=== PATIENT | female | born 1960 | race Caucasian/White ===

== ENCOUNTER 2018-10-05 13:11 | Outpatient (RCR) | payer MEDICAID, SELFPAY ==
--- NOTE | 2018-10-10 10:11 | HP.OTFCE_ITS ---
HP OT Functional Capacity Eval - Task Lift Floor (Occasional 1-33% of Day): 40# Floor (Frequent 34-66% of Day): 20# Floor (Constant 67-100% of Day): 8# Floor PDL: Light-Medium Knee (Occasional 1-33% of Day): 40# Knee (Frequent 34-66% of Day): 20# Knee (Constant 67-100% of Day): 8# Knee PDL: Light-Medium Waist (Occasional 1-33% of Day): 30# Waist (Frequent 34-66% of Day): 15# Waist (Constant 67-100% of Day): 8# Waist PDL: Light-Medium Shoulder (Occasional 1-33% of Day): 25# Shoulder (Frequent 34-66% of Day): 12.5 Shoulder (Constant 67-100% of Day): 5# Overhead (Occasional 1-33% of Day): 20# Overhead (Frequent 34-66% of Day): 10# Overhead (Constant 67-100% of Day): NA Overhead PDL: Light Comments: client demo with SOB following the lift activity. SpO2 was 98%. No C/O pain with lift task. - Work Activity/Posture Bending: Frequent Ability (34-66% of day) Comments: with use of external support Squatting: Occasional Ability (1-33% of day) Comments: with use of external support Kneeling: Occasional Ability (1-33% of day) Comments: low occasional with external support Reaching out: Frequent Ability (34-66% of day) Comments: while sitting Reaching up: Frequent Ability (34-66% of day) Comments: while sitting Sitting: Frequent Ability (34-66% of day) Walking: Occasional Ability (1-33% of day) Comments: due to SOB Standing: Occasional Ability (1-33% of day) Comments: low occasional ability with shifting body weight - Reference Duration Sedentary Sedentary Light Light Light Medium Medium Medium Heavy Very Heavy Heavy Occasional (0-33% of day) Frequent (34-66% of day) Constant (67-100% of day) 10 # Negligible Negligible 15 # 8 # Negligible 20 # 10# Negli. 35 # 18 # 7 # 50 # 25 # 10 # 75 # 100 # >100 # 38 # 50 # >50 # 15 # 20 # >20 # - Patient Information Height: 1.6 m Weight:: 81.647 kg Hand Dominance: right - Medical History Medical History Including Restrictions: Pt is a smoker and has been smoking for 45 years and smokes about a half a pack a day. Client states she does see a psychologist 1 x a month. Client unable to clearly identify what her medical history has been. Client states she does not have any lifting restrictions that she knows of. Client states she does not exercise on a regular basis. Pt states she takes below medications daily. meloxicam. Duloxetine. Atenolol. Omepraxole. risperidone. benztropine. Dicyclomine - Diagnoses Diagnoses: Lupus dx in 2011. Bipolar dx in 2011. Anxiety dx in 1989. Depression dx in 1979. Bowel incontienc dx in 2015. Fibromyalgia dx in 1989- pt does not remember. IBS dx in . The above dx are what client was able to recall no other dx. - Symptoms Symptoms: client reports she has constant low back pain. bowel problems. confusion. Memory. SOB with activity - Pain Pain: Client reports her current pain is 4/10. - Work History Work History: Client reports she is currently unemployed. States her last job was in 07/21/2017 working at [employer]. 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 Client states she was having difficulty performing her job duties, lifting was difficult, and being on her feet. Client states she left this job because she was unable to perform what was needed with her job requirements. - Behavioral Behavioral: Client did need instructions repeated more than one time and clarification on questions that were related to work history and past medical history. Client was cooperative and pleasant during assessment. - ADLS ADLS: Client states she lives with her boyfriend in a mobile home. Client states she has two entry steps with no rail. Client states she has no difficulty getting in or out of her home. Client states she has a tub/shower combo and is independent. with her bathing and dressing tasks. Client states she is independent with cooking tasks, client states she can perform light cleaning, dishes and running the sweeper. Client states she does need to stop and take a break during cleaning tasks but is able to complete tasks. Client states she drives independently and can complete independently as well. grocery shopping. Client states she does not use adaptive equipment or assistive ambulatory device. - Physical Examination ROM: Client demo all ROM WNL Strength: Client demo good functional strength of UB//LB at 4+/5 grossly throughout. Right Marine Service Operator Strength Average: 33.33 Right Marine Service Operator Strength Percentile: 1% Left Marine Service Operator Strength Average: 30.00 Left Marine Service Operator Strength Percentile: 1% Right Lateral Pinch Average: 12.66 Right Lateral Pinch Percentile: 50# Left Lateral Pinch Average: 10.00 Left Lateral Pinch Percentile: 25# Right Tripod Pinch Average: 9.33 Right Tripod Pinch Percentile: 25% Left Tripod Pinch Average: 8.66 Left Tripod Pinch Percentile: 25% Sensation: Denies issues Fine Motor: Denies issues. Client states she has no difficulty picking up small objects ie pills, coins etc. Balance: No loss of balance noted during assessment - Non Material Handling Activities Bending: Client demo the ability to bend forward three times, ten times and ten times rapidly. Client did use external support while bending forward ten times rapidly. Client can bend forward on a frequent basis. Squatting: Client demo the ability to squat three times, ten times and ten times rapidly. client did use external support and demo SOB with ten times rapid activity. C/O dry mouth and asked for water. client given water. Client can squat on a occasional basis with use of external suppport. Kneeling: client requied a rest break following squatting to kneeling activity (1 min). client demo the ability to kneel three times with external support. client C/O leg cramping during the task. Client was unable to kneel ten times or ten times rapidly. Client can kneel on a low occasional basis. Reaching out/up: Client demo the ability to reach up/out three times, ten times, and ten times rapidly. Client completed this task while sitting. pt can reach out/up on a fequent basis. Walking: Client demo the abiity to amb. 8 min with a good recipical gait pr oblem. Client did become SOB with amb. Client did stop to get a drink x 2 during amb. Client can amb. on a occasional basis Standing: Client demo the ability to stand for 8 min. She shifted her body weight and did lean forward on table but did well. Client indicated on functional assessment questioneer that she can stand for about two hours a day. Client can stand on a low occasional ability with given the ability to shift her body weight. Sitting: Client demo the abiity to sit for 30 min with no expressed or apparent discomfort. client can sit on a fequent basis. Client indicates on functional activities questionnaire that she can ride in a care for three house prior to needing to get out and stretch. Client also indicates on same questionnaire she usually sits for 10 hours a day. Climbing Stairs: Client ascended and descended ten steps with a reciprocal step pattern and use of bilateral hand rails with good ability. - Dynamic Occasional Lifting Capacity Floor Lift: Client demo the ability to maximally lift 40# from floor level. Knee Lift: Client demo the ability to maximally lift 40# from knee level. Waist Lift: Client demo the ability to maximally lift 40# from waist level. Shoulder Lift: Client demo the ability to lift 25# maximally from shoulder level. Overhead Lift: Client demo the ability to lift 20# maximally from overhead level. Carrying: Client demo the ability to 25# for 40 feet with good ability. Client was SOB following with SpO2 at 98%. Comments: Client reported no increase in pain and reported feeling good at end of session.
--- OUTSIDE RECORDS SUMMARY | 2018-11-30 22:34 | XMS RPT_ITS ---
:1960 Author Organization [facility] Care Team Providers Name Role Phone LEX DAVIDSON, DR. HONEY Quinteros Attending Unavailable CEBUL III, KYUNG Dickey Referring Unavailable JERSEY BROWNLEE Attending Unavailable JERSEY BROWNLEE Referring Unavailable CEBUL III, KYUNG Dickey Attending Unavailable CEBUL III, KYUNG Dickey Referring Unavailable ALEXANDERNIGEL Attending Unavailable CEBUL III, KYUNG Dickey Referring Unavailable ALEXANDERNIGEL Admitting Unavailable ALEXANDERNIGEL Attending Unavailable NIGEL MUNOZ Referring Unavailable CEBUL III, KYUNG Dickey Referring Unavailable ALEXANDERNIGEL Referring Unavailable CEBUL III, KYUNG Dickey Referring Unavailable ALEXANDERNIGEL FRIEND Attending Unavailable KUSHAL WEBSTER (CRM SPECIALIST) Attending Unavailable KUSHAL WEBSTER (CRM SPECIALIST) Referring Unavailable KUSHAL WEBSTER (CRM SPECIALIST) Referring Unavailable KUSHAL WEBSTER (CRM SPECIALIST) Referring Unavailable Kushal Hardin Attending Unavailable Cebul III, Kyung Primary Care Unavailable Kushal Hardin Referring Unavailable PROBLEMS PROBLEMS DATE TYPE CONDITION / CODE ATTENDING STATUS SOURCE 10/25/2018 Unknown M54.5 - Low back Webster SHIFT SUPERINTENDENT CAUSTIC CRESYLATE, Active Angie pain / [facility] M54.5(ICD-10) Hospital Repository 10/25/2018 Unknown M79.7 - Webster SHIFT SUPERINTENDENT CAUSTIC CRESYLATE, Active Angie Fibromyalgia / [facility] M79.7(ICD-10) Hospital Repository 09/27/2018 Active Shortness of NA Active [facility] breath / [facility] [place] R06.02(ICD-10) Repository 05/18/2018 Active Encounter for NA Active [facility] therapeutic drug [place] level monitoring / Repository Z51.81(ICD-10) 04/28/2018 Active Hyperlipidemia, NA Active [facility] unspecified / [place] E78.5(ICD-10) Repository 04/28/2018 Active Irritable bowel NA Active [facility] syndrome with [place] diarrhea / Repository K58.0(ICD-10) 01/18/2018 Active Dysphagia, ALEXANDER, Active [facility] unspecified / [facility] [place] R13.10(ICD-10) Repository 01/18/2018 Active Gastro-esophageal ALEXANDER, Active [facility] reflux disease [facility] without Repository esophagitis / K21.9(ICD-10) 01/18/2018 Active Personal history ALEXANDER, Active [facility] of colonic polyps [facility] / Z86.010(ICD-10) Repository 10/26/2017 Active Chronic kidney NA Active [facility] disease, stage 3 [place] (moderate) / Repository N18.3(ICD-10) PROCEDURES PROCEDURES No Procedure Records FoundRESULTS RESULTS OT FUNCTIONAL CAPACITY Observed: 10/10/2018 Status: F Source: [facility] 6:51 PM [facility] REPOSITORY [facility] [place] [address] Fax REHABILITATION SERVICES INITIAL EVALUATION MR#: [id number] Acct: [id number] Name: JAMSHID BYRD Rep #: [id number] : 1960 57 From: Floridalma Pollard OTR/L, CHT Referring DrMartir: Kushal FRANCOIS Status: REG RCR Insurance: [facility] Eval Date: SELF PAY INSURANCE HP OT Functional Capacity Eval - Task Lift Floor (Occasional 1-33% of Day): 40# Floor (Frequent 34-66% of Day): 20# Floor (Constant 67-100% of Day): 8# Floor PDL: Light-Medium Knee (Occasional 1-33% of Day): 40# Knee (Frequent 34-66% of Day): 20# Knee (Constant 67-100% of Day): 8# Knee PDL: Light-Medium Waist (Occasional 1-33% of Day): 30# Waist (Frequent 34-66% of Day): 15# Waist (Constant 67-100% of Day): 8# Waist PDL: Light-Medium Shoulder (Occasional 1-33% of Day): 25# Shoulder (Frequent 34-66% of Day): 12.5 Shoulder (Constant 67-100% of Day): 5# Overhead (Occasional 1-33% of Day): 20# Overhead (Frequent 34-66% of Day): 10# Overhead (Constant 67-100% of Day): NA Overhead PDL: Light Comments: client demo with SOB following the lift activity. SpO2 was 98%. No C/O pain with lift task. - Work Activity/Posture Bending: Frequent Ability (34-66% of day) Comments: with use of external support Squatting: Occasional Ability (1-33% of day) Comments: with use of external support Kneeling: Occasional Ability (1-33% of day) Comments: low occasional with external support Reaching out: Frequent Ability (34-66% of day) Comments: while sitting Reaching up: Frequent Ability (34-66% of day) Comments: while sitting Sitting: Frequent Ability (34-66% of day) Walking: Occasional Ability (1-33% of day) Comments: due to SOB Standing: Occasional Ability (1-33% of day) Comments: low occasional ability with shifting body weight - Reference Duration Sedentary Sedentary Light Light Light Medium Medium Medium Heavy V rajwinder Heavy Heavy - Patient Information Height: 1.6 m Weight:: 81.647 kg Hand Dominance: right - Medical History Medical History Including Restrictions: Pt is a smoker and has been smoking for 45 years and smokes about a half a pack a day. Client states she does see a psychologist 1 x a month. Client unable to clearly identify what her medical history has been. Client states she does not have any lifting restrictions that she knows of. Client states she does not exercise on a regular basis. Pt states she takes below medications daily. meloxicam. Duloxetine. Atenolol. Omepraxole. risperidone. benztropine. Dicyclomine - Diagnoses Diagnoses: Lupus dx in 2011. Bipolar dx in 2011. Anxiety dx in 1989. Depression dx in 1979. Bowel incontienc dx in 2015. Fibromyalgia dx in 1989- pt does not remember. IBS dx in . The above dx are what client was able to recall no other dx. - Symptoms Symptoms: client reports she has constant low back pain. bowel problems. confusion. Memory. SOB with activity - Pain Pain: Client reports her current pain is 4/10. - Work History Work History: Client reports she is currently unemployed. States her last job was in 07/21/2017 working at [employer]. 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 Client states she was having difficulty performing her job duties, lifting was difficult, and being on her feet. Client states she left this job because she was unable to perform what was needed with her job requirements. - Behavioral Behavioral: Client did need instructions repeated more than one time and clarification on questions that were related to work history and past medical history. Client was cooperative and pleasant during assessment. - ADLS ADLS: Client states she lives with her boyfriend in a mobile home. Client states she has two entry steps with no rail. Client states she has no difficulty getting in or out of her home. Client states she has a tub/shower combo and is independent. with her bathing and dressing tasks. Client states she is independent with cooking tasks, client states she can perform light cleaning, dishes and running the sweeper. Client states she does need to stop and take a break during cleaning tasks but is able to complete tasks. Client states she drives independently and can complete independently as well. grocery shopping. Client states she does not use adaptive equipment or assistive ambulatory device. - Physical Examination ROM: Client demo all ROM WNL Strength: Client demo good functional strength of UB//LB at 4+/5 grossly throughout. Right Nuclear Medicine Supervisor Strength Average: 33.33 Right Nuclear Medicine Supervisor Strength Percentile: 1% Left Nuclear Medicine Supervisor Strength Average: 30.00 Left Nuclear Medicine Supervisor Strength Percentile: 1% Right Lateral Pinch Average: 12.66 Right Lateral Pinch Percentile: 50# Left Lateral Pinch Average: 10.00 Left Lateral Pinch Percentile: 25# Right Tripod Pinch Average: 9.33 Right Tripod Pinch Percentile: 25% Left Tripod Pinch Average: 8.66 Left Tripod Pinch Percentile: 25% Sensation: Denies issues Fine Motor: Denies issues. Client states she has no difficulty picking up small objects ie pills, coins etc. Balance: No loss of balance noted during assessment - Non Material Handling Activities Bending: Client demo the ability to bend forward three times, ten times and ten times rapidly. Client did use external support while bending forward ten times rapidly. Client can bend forward on a frequent basis. Squatting: Client demo the ability to squat three times, ten times and ten times rapidly. client did use external support and demo SOB with ten times rapid activity. C/O dry mouth and asked for water. client given water. Client can squat on a occasional basis with use of external suppport. Kneeling: client requied a rest break following squatting to kneeling activity (1 min). client demo the ability to kneel three times with external support. client C/O leg cramping during the task. Client was unable to kneel ten times or ten times rapidly. Client can kneel on a low occasional basis. Reaching out/up: Client demo the ability to reach up/out three times, ten times, and ten times rapidly. Client completed this task while sitting. pt can reach out/up on a fequent basis. Walking: Client demo the abiity to amb. 8 min with a good recipical gait problem. Client did become SOB with amb. Client did stop to get a drink x 2 during amb. Client can amb. on a occasional basis Standing: Client demo the ability to stand for 8 min. She shifted her body weight and did lean forward on table but did well. Client indicated on functional assessment questioneer that she can stand for about two hours a day. Client can stand on a low occasional ability with given the ability to shift her body weight. Sitting: Client demo the abiity to sit for 30 min with no expressed or apparent discomfort. client can sit on a fequent basis. Client indicates on functional activities questionnaire that she can ride in a care for three house prior to needing to get out and stretch. Client also indicates on same questionnaire she usually sits for 10 hours a day. Climbing Stairs: Client ascended and descended ten steps with a reciprocal step pattern and use of bilateral hand rails with good ability. - Dynamic Occasional Lifting Capacity Floor Lift: Client demo the ability to maximally lift 40# from floor level. Knee Lift: Client demo the ability to maximally lift 40# from knee level. Waist Lift: Client demo the ability to maximally lift 40# from waist level. Shoulder Lift: Client demo the ability to lift 25# maximally from shoulder level. Overhead Lift: Client demo the ability to lift 20# maximally from overhead level. Carrying: Client demo the ability to 25# for 40 feet with good ability. Client was SOB following with SpO2 at 98%. Comments: Client reported no increase in pain and reported feeling good at end of session. <Electronically signed by Floridalma JACOME/CHAS LopezT> 10/10/18 [id number] CC: Kyung Bates III, MD; Kushal FRANCOIS MK Signed For Medicare only, by signing this I certify the plan of care. Physicians Signature Date Observed: 09/20/2018 Status: F Source: [facility] URINE CULTURE 4:22 PM [facility] REPOSITORY Sp. Request/Comment: - Specimen received in preservative Culture Result - >=100,000 CFU/ml Staphylococcus aureus --> ABNORMAL ALERT ORGANISM: Staphylococcus aureus METHOD: Minimum inhibitory concentration(Vitek) Antibiotic Interp KAYLA Status Trimeth sulfameth SUSCEPTIBLE <=10 F Oxacillin SUSCEPTIBLE 0.5 F Oxacillin susceptible staphylococci are susceptible to other penicillinase stable penicillins, beta lactam/beta lactamase inhibitor combinations, anti staphyloccal cephems, and carbapenems. Vancomycin SUSCEPTIBLE <=0.5 F Tetracycline SUSCEPTIBLE <=1 F Gentamicin SUSCEPTIBLE <=0.5 F Nitrofurantoin SUSCEPTIBLE <=16 F Rifampin SUSCEPTIBLE <=0.5 F Rifampin should not be used alone for antimicrobial therapy. Levofloxacin RESISTANT >=8 F Doxycycline SUSCEPTIBLE <=0.5 F Performed By: #### URCUL #### [facility] [address], [place] [address] PROGRESS Observed: 09/20/2018 Status: COMPLETED Source: [facility] 3:51 PM [facility] REPOSITORY HNO ID: [id number] Author: Kushal Sanders (Doni) Darin Service: (none) Author Type: Nurse Practitioner Type: Progress Notes Filed: 09/20/2018 5:02 PM Note Text: Chief Complaint Patient presents with: Recheck: UTI Imm/Inj: Flu Vaccine HPI Jamshid Byrd is a 57 year old female who presents here today for evaluation and treatment of possible UTI. Sx: urinary frequency, dribbling, urgency, + dysuria and pressure. Denies overt hematuria. Was seen in UC 2 weeks ago for allergic reaction after taking friend's Duricef prescription for UTI sx. Notes hands, lips and face swollen. She was placed on prednisone taper and given rx for Cipro 250 mg. States usually gets Cipro 500 mg with benefit. Took all the prescription, 7 days with mild improvement and now sx worsening. Denies any chills, fever or flank pain. Also brings in Disability forms for PCP to complete. When questioned further she states claiming disability for multiple reasons including: chronic low back pain, unable to stand for prolonged periods such as washing dishes due to pain. SOB, continues to smoke, and mental health status with mood and becoming overwhelmed and anxious. She will have her Mental Health provider complete forms regarding her mental health. Past medical history, appointments, medications, allergies reviewed. 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 - Diaphragmatic hernia without mention of obstruction or gangrene - Drug abuse and dependence (HCC) 10/24/2012 - Esophageal reflux - Esophagitis, unspecified - Gastroesophageal reflux disease with esophagitis 11/06/2015 - Genital warts - Herpes simplex labialis 06/12/2014 - Irritable bowel syndrome 09/05/2010 - Other forms of migraine - Snoring - Systemic lupus erythematosus (HCC) 10/24/2012 - TMJ syndrome 10/24/2012 - Tubular adenoma of colon 12/29/12 - Unspecified drug or medicinal substance causing adverse effect in therapeutic use(E947.9) Previous Surgical History PAST SURGICAL HISTORY Procedure Laterality Date - COLONOSCOP W/ OR W/O BRSH SPEC 12/28/2012 Colonoscopy - CONIZATION CERVIX LOOP ELEC - EGD W/O BRSH SPECIMEN W/BX 01/03/07 - EGD W/O OR W/BRUSH/WASH 12/28/2012 EGD - EXCISION OF LINGUAL TONSIL - PAST SURGICAL HISTORY OF tubal ligation - PAST SURGICAL HISTORY OF 08/22/2009 mid urethral sling Family History FAMILY HISTORY Problem Relation Age of Onset - Breast Cancer Mother - other (Other) Father not in contact with father - Cancer Paternal Grandmother throat - Cancer Paternal Aunt STOMACH - Breast Cancer Maternal Aunt - Psychiatry Brother schizophrenia - Diabetes Brother - Colon Cancer Brother thyroid and liver - other (lung cancer) Brother - Psychiatry Brother explosive personality - None Brother - other (obesity) Sister Patient Allergies ALLERGIES Allergen Reactions - Macrodantin [Nitrof* Anaphylaxis - Bactrim [Sulfametho* Other: See Comments mouth sores--Paredes Dillon reaction - Duracef [Cefadroxil] Swelling Tongue and lip swelling - Estill Rash Current Medications Current Outpatient Prescriptions on File Prior to Visit: meloxicam (MOBIC) 15 mg tablet TAKE 1 TABLET BY MOUTH ONCE DAILY. TAKE WITH FOOD. atenolol (TENORMIN) 25 mg tablet TAKE 1 TABLET BY MOUTH ONCE DAILY. omeprazole (PRILOSEC) 20 mg capsule TAKE 1 CAPSULE TWICE DAILY dicyclomine (BENTYL) 10 mg capsule Take 1 capsule by mouth three times daily. acyclovir (ZOVIRAX) 400 mg tablet Take 1 tablet by mouth twice daily. LORazepam (ATIVAN) 1 mg tablet risperiDONE (RISPERDAL) 1 mg tablet hydroxychloroquine (PLAQUENIL) 200 mg tablet TAKE 1 TABLET BY MOUTH TWICE DAILY. divalproex DR 250 mg EC tablet Take 500 mg by mouth twice daily. DULoxetine (CYMBALTA) 60 mg capsule Take 1 capsule by mouth twice daily. No current facility-administered medications on file prior to visit. Social History Social History Marital status: Spouse name: Years of education: 13 Number of children: 3 Social History Main Topics Smoking status: Current Every Day Smoker Packs/day: 0.50 Years: 34.00 Types: Cigarettes Smokeless tobacco: Never Used Comment: < 1 ppk Alcohol use: Yes 1.5 - 12.0 oz/week Cans of Beer (12oz): 1 - 2 per week Comment: occ Drug use: Yes Comment: occasional marijuana and cocaine use. As of 05/02 has not used cocaine in 1 year. Sexual activity: Yes Partners with: Male control/protection: Tubal Ligation Comment: btl Review of Symptoms REVIEW OF SYSTEMS GENERAL: No weight loss, malaise or fevers HEENT: Negative for frequent or significant headaches, No changes in hearing or vision, no nose bleeds or other nasal problems NECK: Negative for lumps, goiter, pain and significant neck swelling RESPIRATORY: Shortness of breath CARDIOVASCULAR: Negative for chest pain, leg swelling, hypertension, CHF or palpitations GI: Positive for Gerd sx with regurge into mouth after lying down. + smoking, + caffeine 2 cups/day, + eating just prior to bedtime. : See HPI EXAM: BP 102/72 (BP Site: Left Arm, BP Position: Sitting, BP Cuff Size: Regular Adult) Pulse 76 Temp 37.2 ?C (98.9 ?F) (Tympanic) Resp 20 Wt 86.6 kg (191 lb) LMP 09/08/2007 BMI 34.38 kg/m? General Appearance: Well appearing, alert, in no acute distress, well-hydrated, well nourished., Overweight and strong smell of cigarettes. Oropharynx: Lips, mucosa, and tongue normal, teeth and gums normal, oropharynx normal. Neck: Supple, no adenopathy; thyroid symmetric, normal size, no bruits. Lungs: lungs clear to auscultation. No wheezing, rhonchi, rales. Heart: RRR without murmur, gallop, or rubs. No ectopy. Abdomen: Normal abdominal exam, Abdomen soft, non-tender. Bowel sounds normal. No masses, organomegaly. Health Maintenance List DTAP,TDAP,TD(1 - Tdap) due on 1980 INFLUENZA(1) due on 07/09/2018 MAMMOGRAM due on 09/24/2018 DIABETES SCREEN due on 05/18/2021 PAP EVERY 5 YEARS due on 09/24/2022 HPV EVERY 5 YEARS due on 09/24/2022 LIPID SCREEN due on 04/28/2023 ONE PNEUMOVAX PRIOR TO AGE 65 Completed HEPATITIS C SCREENING Completed ASSESSMENT/PLAN: 1. Recurrent UTI (urinary tract infection) - ICD9: 599.0, ICD10: N39.0 (primary diagnosis) recurrent - UA positive for fermin esterase and hematuria - Send urine for culture and will await culture results. - Begin treatment with Ciprofloxacin 500 mg BID for 7 days - Patient education for prevention given - CIPROFLOXACIN 500 MG TABLET - URINE CULTURE 2. Need for vaccination - ICD9: V05.9, ICD10: Z23 - INFLUENZA VACCINE QUADRIVALENT AGE 3 YRS PLUS + IM 3. Dysuria - ICD9: 788.1, ICD10: R30.0 As above - UA DIP, URINE (POC) 4. GERD without esophagitis - ICD9: 530.81, ICD10: K21.9 - Discussed lifestyle modifications including losing weight, limiting caffeine, no meals three hours before sleep and head of bed elevation - Continue treatment with Prilosec 20 mg QD - Smoking cessation encouraged. Disability forms: explained to patient she may need to have additional testing such as Spirometry and Functional capacity exam. The patient indicates understanding of these issues and agrees with the plan. Will forward forms to Dr. Bates. Kushal Webster, MSN COLD PATCHER.MACHINE PACKAGE SEALER PROGRESS Observed: 09/20/2018 Status: COMPLETED Source: [facility] 3:31 PM [facility] REPOSIT[facility] HNO ID: [id number] Author: Sabino Boyd LPN Service: (none) Author Type: (none) Type: Progress Notes Filed: 09/20/2018 5:02 PM Note Text: 57 year old female here for INACTIVATED INFLUENZA VACCINE. [id number] Season Patient is identified by name and date of : Yes [] CONTRAINDICATIONS color enhanced section Age less than 6 months? No Allergy to eggs, chicken, chicken feathers, or chicken dander? No Allergy to thimerosal (a preservative) or formaldehyde, gelatin? No History of severe reaction to any vaccine component or a previous dose of influenza vaccination? No History of Guillain-Orange Syndrome within 6 weeks after a previous influenza vaccine? No Patient is not moderately or severely ill? No Current temperature greater or equal to 100.4F? No History of Bone Marrow Transplant prior 6 months or solid organ transplant in the past 3 months ? No History of fainting after a prior injection or medical procedure? No- ? If patient has fainted in the past, the CDC recommends sitting or lying down for 15 minutes after the vaccination. [] VERIFICATION color enhanced section Was the answer Yes for any of the above contraindications? No contraindications present. Acceptable to proceed with vaccine. Patient/guardian agrees the above answers are true to the best of their knowledge? Yes Flu vaccine information sheet given? Yes See immunization activity in [facility] for details of immunizations adminstered today. Patient age: [age] year old For The 4378-6596 Flu Season 6-35 months old: Fluzone 0.25 ml - IM (Preservative Free) 3 years of age: Fluzone 0.5 ml - IM (Preservative Free) 3 years and older: Fluzone 0.5 ml- IM-(with Preservatives) 65+ years old: 2-49 years old Fluzone High-Dose 0.5 ml - IM (Preservative Free) FLUMIST- intranasal REMEMBER: If patient is less than 9 years of age and this is the first vaccine of Influenza to be received in any flu season, they should receive a second dose in one months time. CNOV Observed: 09/20/2018 Status: COMPLETED Source: [facility] 3:20 PM [facility] REPOS[facility] Office Visit (FAMPWS) JAMSHID BYRD ([id number]) 1960 F Date Time Provider Department 09/20/18 3:20 PM KUSHAL WEBSTER (CRM SPECIALIST) FAMPWS During your visit today, we recorded the following information about you: Temperature Pulse Respiration Blood pressure 98.9 degrees 76/minute 20/minute 102/72 Weight 86.6 kg Sabino Boyd LPN 09/20/2018 5:02 PM Signed 57 year old female here for INACTIVATED INFLUENZA VACCINE. Season Patient is identified by name and date of : Yes [] CONTRAINDICATIONS color enhanced section Age less than 6 months? No Allergy to eggs, chicken, chicken feathers, or chicken dander? No Allergy to thimerosal (a preservative) or formaldehyde, gelatin? No History of severe reaction to any vaccine component or a previous dose of influenza vaccination? No History of Guillain-Orange Syndrome within 6 weeks after a previous influenza vaccine? No Patient is not moderately or severely ill? No Current temperature greater or equal to 100.4F? No History of Bone Marrow Transplant prior 6 months or solid organ transplant in the past 3 months ? No History of fainting after a prior injection or medical procedure? No- ? If patient has fainted in the past, the CDC recommends sitting or lying down for 15 minutes after the vaccination. [] VERIFICATION color enhanced section Was the answer Yes for any of the above contraindications? No contraindications present. Acceptable to proceed with vaccine. Patient/guardian agrees the above answers are true to the best of their knowledge? Yes Flu vaccine information sheet given? Yes See immunization activity in [facility] for details of immunizations adminstered today. Patient age: [age] year old For The 9972-2321 Flu Season 6-35 months old: Fluzone 0.25 ml - IM (Preservative Free) 3 years of age: Fluzone 0.5 ml - IM (Preservative Free) 3 years and older: Fluzone 0.5 ml- IM-(with Preservatives) 65+ years old: 2-49 years old Fluzone High-Dose 0.5 ml - IM (Preservative Free) FLUMIST- intranasal REMEMBER: If patient is less than 9 years of age and this is the first vaccine of Influenza to be received in any flu season, they should receive a second dose in one months time. Kushal Webster, MSN COLD PATCHER.MACHINE PACKAGE SEALER 09/20/2018 5:02 PM Signed Chief Complaint Patient presents with: Recheck: UTI Imm/Inj: Flu Vaccine HPI Jamshid Byrd is a 57 year old female who presents here today for evaluation and treatment of possible UTI. Sx: urinary frequency, dribbling, urgency, + dysuria and pressure. Denies overt hematuria. Was seen in UC 2 weeks ago for allergic reaction after taking friend's Duricef prescription for UTI sx. Notes hands, lips and face swollen. She was placed on prednisone taper and given rx for Cipro 250 mg. States usually gets Cipro 500 mg with benefit. Took all the prescription, 7 days with mild improvement and now sx worsening. Denies any chills, fever or flank pain. Also brings in Disability forms for PCP to complete. When questioned further she states claiming disability for multiple reasons including: chronic low back pain, unable to stand for prolonged periods such as washing dishes due to pain. SOB, continues to smoke, and mental health status with mood and becoming overwhelmed and anxious. She will have her Mental Health provider complete forms regarding her mental health. Past medical history, appointments, medications, allergies reviewed. 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 - Diaphragmatic hernia without mention of obstruction or gangrene - Drug abuse and dependence (HCC) 10/24/2012 - Esophageal reflux - Esophagitis, unspecified - Gastroesophageal reflux disease with esophagitis 11/06/2015 - Genital warts - Herpes simplex labialis 06/12/2014 - Irritable bowel syndrome 09/05/2010 - Other forms of migraine - Snoring - Systemic lupus erythematosus (HCC) 10/24/2012 - TMJ syndrome 10/24/2012 - Tubular adenoma of colon 12/29/12 - Unspecified drug or medicinal substance causing adverse effect in therapeutic use(E947.9) Previous Surgical History PAST SURGICAL HISTORY Procedure Laterality Date - COLONOSCOP W/ OR W/O [facility] SPEC 12/28/2012 Colonoscopy - CONIZATION CERVIX LOOP ELEC - [facility] 01/03/07 - EGD W/O OR W/BRUSH/WASH 12/28/2012 EGD - EXCISION OF LINGUAL TONSIL - PAST SURGICAL HISTORY OF tubal ligation - PAST SURGICAL HISTORY OF 08/22/2009 mid urethral sling Family History FAMILY HISTORY Problem Relation Age of Onset - Breast Cancer Mother - other (Other) Father not in contact with father - Cancer Paternal Grandmother throat - Cancer Paternal Aunt STOMACH - Breast Cancer Maternal Aunt - Psychiatry Brother schizophrenia - Diabetes Brother - Colon Cancer Brother thyroid and liver - other (lung cancer) Brother - Psychiatry Brother explosive personality - None Brother - other (obesity) Sister Patient Allergies ALLERGIES Allergen Reactions - Macrodantin [Nitrof* Anaphylaxis - Bactrim [Sulfametho* Other: See Comments mouth sores--Paredes Dillon reaction - Duracef [Cefadroxil] Swelling Tongue and lip swelling - Estill Rash Current Medications Current Outpatient Prescriptions on File Prior to Visit: meloxicam (MOBIC) 15 mg tablet TAKE 1 TABLET BY MOUTH ONCE DAILY. TAKE WITH FOOD. atenolol (TENORMIN) 25 mg tablet TAKE 1 TABLET BY MOUTH ONCE DAILY. omeprazole (PRILOSEC) 20 mg capsule TAKE 1 CAPSULE TWICE DAILY dicyclomine (BENTYL) 10 mg capsule Take 1 capsule by mouth three times daily. acyclovir (ZOVIRAX) 400 mg tablet Take 1 tablet by mouth twice daily. LORazepam (ATIVAN) 1 mg tablet risperiDONE (RISPERDAL) 1 mg tablet hydroxychloroquine (PLAQUENIL) 200 mg tablet TAKE 1 TABLET BY MOUTH TWICE DAILY. divalproex DR 250 mg EC tablet Take 500 mg by mouth twice daily. DULoxetine (CYMBALTA) 60 mg capsule Take 1 capsule by mouth twice daily. No current facility-administered medications on file prior to visit. Social History Social History Marital status: Spouse name: Years of education: 13 Number of children: 3 Social History Main Topics Smoking status: Current Every Day Smoker Packs/day: 0.50 Years: 34.00 Types: Cigarettes Smokeless tobacco: Never Used Comment: < 1 ppk Alcohol use: Yes 1.5 - 12.0 oz/week Cans of Beer (12oz): 1 - 2 per week Comment: occ Drug use: Yes Comment: occasional marijuana and cocaine use. As of 05/02 has not used cocaine in 1 year. Sexual activity: Yes Partners with: Male control/protection: Tubal Ligation Comment: btl Review of Symptoms REVIEW OF SYSTEMS GENERAL: No weight loss, malaise or fevers HEENT: Negative for frequent or significant headaches, No changes in hearing or vision, no nose bleeds or other nasal problems NECK: Negative for lumps, goiter, pain and significant neck swelling RESPIRATORY: Shortness of breath CARDIOVASCULAR: Negative for chest pain, leg swelling, hypertension, CHF or palpitations GI: Positive for Gerd sx with regurge into mouth after lying down. + smoking, + caffeine 2 cups/day, + eating just prior to bedtime. : See HPI EXAM: BP 102/72 (BP Site: Left Arm, BP Position: Sitting, BP Cuff Size: Regular Adult) Pulse 76 Temp 37.2 ?C (98.9 ?F) (Tympanic) Resp 20 Wt 86.6 kg (191 lb) LMP 09/08/2007 BMI 34.38 kg/m? General Appearance: Well appearing, alert, in no acute distress, well-hydrated, well nourished., Overweight and strong smell of cigarettes. Oropharynx: Lips, mucosa, and tongue normal, teeth and gums normal, oropharynx normal. Neck: Supple, no adenopathy; thyroid symmetric, normal size, no bruits. Lungs: lungs clear to auscultation. No wheezing, rhonchi, rales. Heart: RRR without murmur, gallop, or rubs. No ectopy. Abdomen: Normal abdominal exam, Abdomen soft, non-tender. Bowel sounds normal. No masses, organomegaly. Health Maintenance List DTAP,TDAP,TD(1 - Tdap) due on 1980 INFLUENZA(1) due on 07/09/2018 MAMMOGRAM due on 09/24/2018 DIABETES SCREEN due on 05/18/2021 PAP EVERY 5 YEARS due on 09/24/2022 HPV EVERY 5 YEARS due on 09/24/2022 LIPID SCREEN due on 04/28/2023 ONE PNEUMOVAX PRIOR TO AGE 65 Completed HEPATITIS C SCREENING Completed ASSESSMENT/PLAN: 1. Recurrent UTI (urinary tract infection) - ICD9: 599.0, ICD10: N39.0 (primary diagnosis) recurrent - UA positive for fermin esterase and hematuria - Send urine for culture and will await culture results. - Begin treatment with Ciprofloxacin 500 mg BID for 7 days - Patient education for prevention given - CIPROFLOXACIN 500 MG TABLET - URINE CULTURE 2. Need for vaccination - ICD9: V05.9, ICD10: Z23 - INFLUENZA VACCINE QUADRIVALENT AGE 3 YRS PLUS + IM 3. Dysuria - ICD9: 788.1, ICD10: R30.0 As above - UA DIP, URINE (POC) 4. GERD without esophagitis - ICD9: 530.81, ICD10: K21.9 - Discussed lifestyle modifications including losing weight, limiting caffeine, no meals three hours before sleep and head of bed elevation - Continue treatment with Prilosec 20 mg QD - Smoking cessation encouraged. Disability forms: explained to patient she may need to have additional testing such as Spirometry and Functional capacity exam. The patient indicates understanding of these issues and agrees with the plan. Will forward forms to Dr. Bates. Kushal Webster, MSN COLD PATCHER.MACHINE PACKAGE SEALER Referring Provider: SELF [[id number]] Allergies As of Date: 09/20/2018 Noted Allergy Reaction MACRODANTIN (NITROFURANTOIN MACRO*02/10/2010 10 - Anaphylaxis BACTRIM (SULFAMETHOXAZOLE) 09/25/2014 14 - Other: See Comments Comments: mouth sores--Paredes Dillon reaction DURACEF (CEFADROXIL) 08/20/2018 7 - Swelling Comments: Tongue and lip swelling LITHIUM 02/08/2012 2 - Rash Date Reviewed: 09/20/2018 Reviewed by: Sabino Boyd LPN - Fully Assessed Reason for Visit: Recheck [92] Cmt: UTI Imm/Inj [58] Cmt: Flu Vaccine Reason For Visit History Recorded Primary Visit Diagnosis:Recurrent UTI (urinary tract infection) [N39.0] Other Visit Diagnoses:Need for vaccination [Z23] Dysuria [R30.0] GERD without esophagitis [K21.9] Order(s):INFLUENZA VACCINE QUADRIVALENT AGE 3 YRS PLUS + IM [[id number]] Order #: [id number] UA DIP, URINE (POC) [[id number]] Order #: [id number]. #:[id number] ciprofloxacin HCl (CIPRO) 500 mg tabletTake 1 tablet by mouth twice daily for 7 days.Disp: 14 tabletRfl: 0 URINE CULTURE [SQURCUL] Order #: [id number] Prescriptions as of 09/20/2018 Sig: RISPERIDONE 2 MG TABLET Take 2 mg by mouth twice shanell* DULOXETINE 30 MG CAPSULE,TAYE* Take 30 mg by mouth once shanell* BENZTROPINE 1 MG TABLET Take 1 mg by mouth twice shanell* MELOXICAM 15 MG TABLET TAKE 1 TABLET BY MOUTH ONCE D* ATENOLOL 25 MG TABLET TAKE 1 TABLET BY MOUTH ONCE D* OMEPRAZOLE 20 MG CAPSULE,TAYE* TAKE 1 CAPSULE TWICE DAILY DICYCLOMINE 10 MG CAPSULE Take 1 capsule by mouth three* ACYCLOVIR 400 MG TABLET Take 1 tablet by mouth twice * LORAZEPAM 1 MG TABLET CIPROFLOXACIN 500 MG TABLET Take 1 tablet by mouth twice * Problem List As Of Date 09/20/2018 Noted Resolved MIGRAINE NOS W/O MENTN INTRACTABLE [G43.909] INVALID FOR* Bipolar I disorder (HCC) [F31.9] INVALID FOR* Open wound of knee, leg (except thigh), and ank*INVALID FOR*11/22/2012 Acute gastritis without mention of hemorrhage [*INVALID FOR*11/22/2012 DIAPHRAGMATIC HERNIA [K44.9] INVALID FOR* Lateral epicondylitis of elbow [M77.10] INVALID FOR*11/22/2012 ADJUSTMENT DISORDER WITH DEPRESSED MOOD [F43.21]INVALID FOR* Plantar fascial fibromatosis [M72.2] INVALID FOR*11/30/2016 Pain in limb [M79.609] INVALID FOR*03/21/2015 Female Stress Incontinence [N39.3] INVALID FOR*10/09/2009 Urge Incontinence [N39.41] INVALID FOR*10/09/2009 Other chronic cystitis [N30.20] INVALID FOR*06/04/2016 Irritable bowel syndrome [K58.9] INVALID FOR* Trochanteric bursitis of both hips [M70.61, M70*INVALID FOR* 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 Knee pain, bilateral [M25.561, M25.562] INVALID FOR*10/04/2017 Arthritis of knee, left [M17.12] INVALID FOR*10/04/2017 Herpes simplex labialis [B00.1] INVALID FOR*10/04/2017 Psoriasis with arthropathy (HCC) [L40.50] INVALID FOR* Benign essential tremor [G25.0] INVALID FOR* Tobacco use [Z72.0] INVALID FOR* SOB (shortness of breath) on exertion [R06.02] INVALID FOR* Chronic tension-type headache, not intractable *INVALID FOR* Nausea [R11.0] INVALID FOR*10/04/2017 Pyoderma (skin infection) [L08.0] INVALID FOR*10/04/2017 Gastroesophageal reflux disease with esophagiti*INVALID FOR* Muscle contraction headache [G44.209] INVALID FOR*10/04/2017 Upper back pain [M54.9] INVALID FOR* Vasomotor rhinitis [J30.0] INVALID FOR* Fibromyalgia [M79.7] INVALID FOR* Recurrent urinary tract infection [N39.0] INVALID FOR* Genital warts [A63.0] INVALID FOR*10/04/2017 History of hysterectomy [Z90.710] INVALID FOR*08/21/2016 Medication management [Z79.899] INVALID FOR* Cutaneous lupus erythematosus [L93.2] INVALID FOR* KRISTINA I (cervical intraepithelial neoplasia I) [N*INVALID FOR* More... Personal history of colonic polyps [Z86.010] INVALID FOR* More... Esophageal reflux [K21.9] INVALID FOR* More... Elevated serum creatinine [R79.89] INVALID FOR* Screening for colon cancer [Z12.11] INVALID FOR* More... Prescriptions ordered this encounter Disp Refills Start End CIPROFLOXACIN 500 MG TABLET 14 t* 0 09/20/2018 09/27/2018 Route: ORAL Sig: Take 1 tablet by mouth twice daily for 7 days. Medications Discontinued During This Encounter hydroxychloroquine (PLAQUENIL) 200 m* 56 t* 1 02/24/2018 09/20/2018 Cmt: Maximum Refills Reached Sig: TAKE 1 TABLET BY MOUTH TWICE DAILY. Disc: Course of therapy completed divalproex DR 250 mg EC tablet 11/22/2013 09/20/2018 Class: Historical Med Route: ORAL Sig: Take 500 mg by mouth twice daily. Disc: Discontinued by another Health Care Provider risperiDONE (RISPERDAL) 1 mg tablet 06/21/2018 09/20/2018 Class: Historical Med Sig: Disc: Discontinued by another Health Care Provider DULoxetine (CYMBALTA) 60 mg capsule 06/27/2013 09/20/2018 Class: Med Update Route: ORAL Sig: Take 1 capsule by mouth twice daily. Disc: Duplicate Entry Cosign accepted by KYUNG BATES III, MD[[id number]] on 06/30/2013 1:12 PM Disposition: Return if symptoms worsen or fail to improve. Follow-up and Disposition History Recorded Encounter Status:Closed by KUSHAL WEBSTER CNP on 09/20/18 PROGRESS Observed: 08/20/2018 Status: COMPLETED Source: LEE 3:53 PM [facility] REPOSITORY HNO ID: [id number] Author: Crissy (Sin) Older Service: (none) Author Type: Nurse Practitioner Type: Progress Notes Filed: 08/20/2018 4:09 PM Note Text: CC: Patient presents with: Medication Problem HPI Jamshid Byrd is a 57 year old female who presents today for possible allergic reaction to medication. Took Duracef 4 days ago because she thought she had a UTI. Took 3 doses and then broke out on hives on her legs. The next day her mouth developed blisters, swollen lips and tongue. Took a Claritin to treat without any relief. Denies drooling, shortness of breath, throat swelling, chest pain or racing heart. Possible UTI. Positive for dysuria, urgency and frequency. Denies back pain, fever, chills. 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 - Diaphragmatic hernia without mention of obstruction or gangrene - Drug abuse and dependence (HCC) 10/24/2012 - Esophageal reflux - Esophagitis, unspecified - Gastroesophageal reflux disease with esophagitis 11/06/2015 - Genital warts - Herpes simplex labialis 06/12/2014 - Irritable bowel syndrome 09/05/2010 - Other forms of migraine - Snoring - Systemic lupus erythematosus (HCC) 10/24/2012 - TMJ syndrome 10/24/2012 - Tubular adenoma of colon 12/29/12 - Unspecified drug or medicinal substance causing adverse effect in therapeutic use(E947.9) PAST SURGICAL HISTORY Procedure Laterality Date - COLONOSCOP W/ OR W/O [facility] SPEC 12/28/2012 Colonoscopy - CONIZATION CERVIX LOOP ELEC - EGD W/O [facility] SPECIMEN W/BX 01/03/07 - EGD W/O OR W/BRUSH/WASH 12/28/2012 EGD - EXCISION OF LINGUAL TONSIL - PAST SURGICAL HISTORY OF tubal ligation - PAST SURGICAL HISTORY OF 08/22/2009 mid urethral sling ALLERGIES Macrodantin [Nitrofurantoin Macrocrystalline]; Bactrim [Sulfamethoxazole]; Estill MEDICATIONS omeprazole (PRILOSEC) 20 mg capsule TAKE 1 CAPSULE TWICE DAILY risperiDONE (RISPERDAL) 1 mg tablet dicyclomine (BENTYL) 10 mg capsule Take 1 capsule by mouth three times daily. acyclovir (ZOVIRAX) 400 mg tablet Take 1 tablet by mouth twice daily. meloxicam (MOBIC) 15 mg tablet TAKE 1 TABLET BY MOUTH ONCE DAILY. TAKE WITH FOOD. atenolol (TENORMIN) 25 mg tablet TAKE 1 TABLET BY MOUTH ONCE DAILY. LORazepam (ATIVAN) 1 mg tablet DULoxetine (CYMBALTA) 60 mg capsule Take 1 capsule by mouth twice daily. hydroxychloroquine (PLAQUENIL) 200 mg tablet TAKE 1 TABLET BY MOUTH TWICE DAILY. divalproex DR 250 mg EC tablet Take 500 mg by mouth twice daily. FAMILY HISTORY Problem Relation Age of Onset - Breast Cancer Mother - other (Other) Father not in contact with father - Cancer Paternal Grandmother throat - Cancer Paternal Aunt STOMACH - Breast Cancer Maternal Aunt - Psychiatry Brother schizophrenia - Diabetes Brother - Colon Cancer Brother thyroid and liver - other (lung cancer) Brother - Psychiatry Brother explosive personality - None Brother - other (obesity) Sister Social History Substance Use Topics - Smoking status: Current Every Day Smoker Packs/day: 0.50 Years: 34.00 Types: Cigarettes - Smokeless tobacco: Never Used Comment: < 1 ppk - Alcohol use 1.5 - 12.0 oz/week 1 - 2 Cans of Beer (12oz) per week Comment: occ PHYSICAL EXAM BP 122/80 Pulse 88 Temp 36.9 ?C (98.4 ?F) (Left Tympanic) Resp 16 Wt 79.4 kg (175 lb) LMP 09/08/2007 SpO2 98% BMI 31.50 kg/m? General Appearance: well appearing, in no acute distress, alert Pysch: affect is anxious Oropharynx: No observed tongue or lip swelling. Pharynx normal, no swelling. No drooling or coughing. Lungs: Lungs clear to auscultation. No wheezing, rhonchi, rales Heart: RRR without murmur, gallop, or rubs. No ectopy Abdomen: Abdomen soft, non-tender. Negative CVA tenderness ASSESSMENT/PLAN: 1. Tongue sore - ICD9: 529.6, ICD10: K14.6 (primary diagnosis) Subjective swelling and soreness. No sores, blisters or swelling noted on exam. No alarm symptoms or exam findings. Start Prednisone for possible medication reaction to Duracef, added to allergy list. Patient cautioned about taking others prescription medications Follow-up with PCP if no improvement in symptoms 2. Tongue swelling - ICD9: 784.2, ICD10: R22.0 As above 3. Dysuria - ICD9: 788.1, ICD10: R30.0 acute - UA positive for moderate leukocytes - Send urine for culture - Begin treatment with Ciprofloxacin 250 mg BID for 7 days - Patient education for prevention given - PREDNISONE 10 MG TABLET - URINE CULTURE - UA DIP, URINE (POC) Prescription instructions reviewed with patient as applicable. Potential red flag symptoms discussed with the patient. Reviewed appropriate action plan to take if red flag symptoms occur. Patient agreeable to treatment plan. Crissy Maddox APRN.CNP CNOV Observed: 08/20/2018 Status: COMPLETED Source: LEE 3:30 PM [facility] REPOSITORY Office Visit (UCWSTR) JAMSHID BYRD ([id number]) 1960 F Date Time Provider Department 08/20/18 3:30 PM CRISSY MADDOX (SIN) WSTR During your visit today, we recorded the following information about you: Temperature Pulse Respiration Blood pressure 98.4 degrees 88/minute 16/minute 122/80 Weight 79.4 kg Crissy Maddox APRN.CNP 08/20/2018 4:09 PM Signed CC: Patient presents with: Medication Problem CINDY Byrd is a 57 year old female who presents today for possible allergic reaction to medication. Took Duracef 4 days ago because she thought she had a UTI. Took 3 doses and then broke out on hives on her legs. The next day her mouth developed blisters, swollen lips and tongue. Took a Claritin to treat without any relief. Denies drooling, shortness of breath, throat swelling, chest pain or racing heart. Possible UTI. Positive for dysuria, urgency and frequency. Denies back pain, fever, chills. 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 - Diaphragmatic hernia without mention of obstruction or gangrene - Drug abuse and dependence (HCC) 10/24/2012 - Esophageal reflux - Esophagitis, unspecified - Gastroesophageal reflux disease with esophagitis 11/06/2015 - Genital warts - Herpes simplex labialis 06/12/2014 - Irritable bowel syndrome 09/05/2010 - Other forms of migraine - Snoring - Systemic lupus erythematosus (HCC) 10/24/2012 - TMJ syndrome 10/24/2012 - Tubular adenoma of colon 12/29/12 - Unspecified drug or medicinal substance causing adverse effect in therapeutic use(E947.9) PAST SURGICAL HISTORY Procedure Laterality Date - COLONOSCOP W/ OR W/O [facility] SPEC 12/28/2012 Colonoscopy - CONIZATION CERVIX LOOP ELEC - EGD W/O [facility] SPECIMEN W/BX 01/03/07 - EGD W/O OR W/BRUSH/WASH 12/28/2012 EGD - EXCISION OF LINGUAL TONSIL - PAST SURGICAL HISTORY OF tubal ligation - PAST SURGICAL HISTORY OF 08/22/2009 mid urethral sling ALLERGIES Macrodantin [Nitrofurantoin Macrocrystalline]; Bactrim [Sulfamethoxazole]; Estill MEDICATIONS omeprazole (PRILOSEC) 20 mg capsule TAKE 1 CAPSULE TWICE DAILY risperiDONE (RISPERDAL) 1 mg tablet dicyclomine (BENTYL) 10 mg capsule Take 1 capsule by mouth three times daily. acyclovir (ZOVIRAX) 400 mg tablet Take 1 tablet by mouth twice daily. meloxicam (MOBIC) 15 mg tablet TAKE 1 TABLET BY MOUTH ONCE DAILY. TAKE WITH FOOD. atenolol (TENORMIN) 25 mg tablet TAKE 1 TABLET BY MOUTH ONCE DAILY. LORazepam (ATIVAN) 1 mg tablet DULoxetine (CYMBALTA) 60 mg capsule Take 1 capsule by mouth twice daily. hydroxychloroquine (PLAQUENIL) 200 mg tablet TAKE 1 TABLET BY MOUTH TWICE DAILY. divalproex DR 250 mg EC tablet Take 500 mg by mouth twice daily. FAMILY HISTORY Problem Relation Age of Onset - Breast Cancer Mother - other (Other) Father not in contact with father - Cancer Paternal Grandmother throat - Cancer Paternal Aunt STOMACH - Breast Cancer Maternal Aunt - Psychiatry Brother schizophrenia - Diabetes Brother - Colon Cancer Brother thyroid and liver - other (lung cancer) Brother - Psychiatry Brother explosive personality - None Brother - other (obesity) Sister Social History Substance Use Topics - Smoking status: Current Every Day Smoker Packs/day: 0.50 Years: 34.00 Types: Cigarettes - Smokeless tobacco: Never Used Comment: < 1 ppk - Alcohol use 1.5 - 12.0 oz/week 1 - 2 Cans of Beer (12oz) per week Comment: occ PHYSICAL EXAM BP 122/80 Pulse 88 Temp 36.9 ?C (98.4 ?F) (Left Tympanic) Resp 16 Wt 79.4 kg (175 lb) LMP 09/08/2007 SpO2 98% BMI 31.50 kg/m? General Appearance: well appearing, in no acute distress, alert Pysch: affect is anxious Oropharynx: No observed tongue or lip swelling. Pharynx normal, no swelling. No drooling or coughing. Lungs: Lungs clear to auscultation. No wheezing, rhonchi, rales Heart: RRR without murmur, gallop, or rubs. No ectopy Abdomen: Abdomen soft, non-tender. Negative CVA tenderness ASSESSMENT/PLAN: 1. Tongue sore - ICD9: 529.6, ICD10: K14.6 (primary diagnosis) Subjective swelling and soreness. No sores, blisters or swelling noted on exam. No alarm symptoms or exam findings. Start Prednisone for possible medication reaction to Duracef, added to allergy list. Patient cautioned about taking others prescription medications Follow-up with PCP if no improvement in symptoms 2. Tongue swelling - ICD9: 784.2, ICD10: R22.0 As above 3. Dysuria - ICD9: 788.1, ICD10: R30.0 acute - UA positive for moderate leukocytes - Send urine for culture - Begin treatment with Ciprofloxacin 250 mg BID for 7 days - Patient education for prevention given - PREDNISONE 10 MG TABLET - URINE CULTURE - UA DIP, URINE (POC) Prescription instructions reviewed with patient as applicable. Potential red flag symptoms discussed with the patient. Reviewed appropriate action plan to take if red flag symptoms occur. Patient agreeable to treatment plan. Crissy Maddox APRN.SIN Maddox APRN.CNP 08/20/2018 4:06 PM Addendum Go to ER or call 911 if you develop difficulty swallowing or breathing, worsening tongue/lip swelling, drooling, coughing/choking on saliva Referring Provider: SELF [[id number]] Allergies As of Date: 08/20/2018 Noted Allergy Reaction MACRODANTIN (NITROFURANTOIN MACRO*02/10/2010 10 - Anaphylaxis BACTRIM (SULFAMETHOXAZOLE) 09/25/2014 14 - Other: See Comments Comments: mouth sores--Paredes Dillon reaction DURACEF (CEFADROXIL) 08/20/2018 7 - Swelling Comments: Tongue and lip swelling LITHIUM 02/08/2012 2 - Rash Date Reviewed: 08/20/2018 Reviewed by: Leeanna Dunn Ma - Fully Assessed Reason for Visit: Medication Problem [509] Primary Visit Diagnosis:Tongue sore [K14.6] Other Visit Diagnoses:Tongue swelling [R22.0] Dysuria [R30.0] Order(s):predniSONE (DELTASONE) 10 mg tabletTake 6 tabs for 3 days, then 4 tabs for 3 days, then 2 tabs for 3 days then 1 tab for 3 days with food.Disp: 39 tabletRfl: 0 URINE CULTURE [SQURCUL] Order #: [id number] UA DIP, URINE (POC) [[id number]] Order #: [id number]. #:[id number] ciprofloxacin HCl (CIPRO) 250 mg tabletTake 1 tablet by mouth twice daily for 7 days.Disp: 14 tabletRfl: 0 Prescriptions as of 08/20/2018 Sig: OMEPRAZOLE 20 MG CAPSULE,TAYE* TAKE 1 CAPSULE TWICE DAILY RISPERIDONE 1 MG TABLET DICYCLOMINE 10 MG CAPSULE Take 1 capsule by mouth three* ACYCLOVIR 400 MG TABLET Take 1 tablet by mouth twice * MELOXICAM 15 MG TABLET TAKE 1 TABLET BY MOUTH ONCE D* ATENOLOL 25 MG TABLET TAKE 1 TABLET BY MOUTH ONCE D* LORAZEPAM 1 MG TABLET DULOXETINE 60 MG CAPSULE,TAYE* Take 1 capsule by mouth twice* PREDNISONE 10 MG TABLET Take 6 tabs for 3 days, then * CIPROFLOXACIN 250 MG TABLET Take 1 tablet by mouth twice * HYDROXYCHLOROQUINE 200 MG TAB* TAKE 1 TABLET BY MOUTH TWICE * DIVALPROEX 250 MG TABLET,TAYE* Take 500 mg by mouth twice da* Problem List As Of Date 08/20/2018 Noted Resolved MIGRAINE NOS W/O MENTN INTRACTABLE [G43.909] INVALID FOR* Bipolar I disorder (HCC) [F31.9] INVALID FOR* Open wound of knee, leg (except thigh), and ank*INVALID FOR*11/22/2012 Acute gastritis without mention of hemorrhage [*INVALID FOR*11/22/2012 DIAPHRAGMATIC HERNIA [K44.9] INVALID FOR* Lateral epicondylitis of elbow [M77.10] INVALID FOR*11/22/2012 ADJUSTMENT DISORDER WITH DEPRESSED MOOD [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]INVALID FOR* Plantar fascial fibromatosis [M72.2] INVALID FOR*11/30/2016 Pain in limb [M79.609] INVALID FOR*03/21/2015 Female Stress Incontinence [N39.3] INVALID FOR*10/09/2009 Urge Incontinence [N39.41] INVALID FOR*10/09/2009 Other chronic cystitis [N30.20] INVALID FOR*06/04/2016 Irritable bowel syndrome [K58.9] INVALID FOR* Trochanteric bursitis of both hips [M70.61, M70*INVALID FOR* 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 Knee pain, bilateral [M25.561, M25.562] INVALID FOR*10/04/2017 Arthritis of knee, left [M17.12] INVALID FOR*10/04/2017 Herpes simplex labialis [B00.1] INVALID FOR*10/04/2017 Psoriasis with arthropathy (HCC) [L40.50] INVALID FOR* Benign essential tremor [G25.0] INVALID FOR* Tobacco use [Z72.0] INVALID FOR* SOB (shortness of breath) on exertion [R06.02] INVALID FOR* Chronic tension-type headache, not intractable *INVALID FOR* Nausea [R11.0] INVALID FOR*10/04/2017 Pyoderma (skin infection) [L08.0] INVALID FOR*10/04/2017 Gastroesophageal reflux disease with esophagiti*INVALID FOR* Muscle contraction headache [G44.209] INVALID FOR*10/04/2017 Upper back pain [M54.9] INVALID FOR* Vasomotor rhinitis [J30.0] INVALID FOR* Fibromyalgia [M79.7] INVALID FOR* Recurrent urinary tract infection [N39.0] INVALID FOR* Genital warts [A63.0] INVALID FOR*10/04/2017 History of hysterectomy [Z90.710] INVALID FOR*08/21/2016 Medication management [Z79.899] INVALID FOR* Cutaneous lupus erythematosus [L93.2] INVALID FOR* KRISTINA I (cervical intraepithelial neoplasia I) [N*INVALID FOR* More... Personal history of colonic polyps [Z86.010] INVALID FOR* More... Esophageal reflux [K21.9] INVALID FOR* More... Elevated serum creatinine [R79.89] INVALID FOR* Screening for colon cancer [Z12.11] INVALID FOR* More... Other instructions from your clinician: Go to ER or call 911 if you develop difficulty swallowing or breathing, worsening tongue/lip swelling, drooling, coughing/choking on saliva Prescriptions ordered this encounter Disp Refills Start End PREDNISONE 10 MG TABLET 39 t* 0 08/20/2018 09/01/2018 Sig: Take 6 tabs for 3 days, then 4 tabs for 3 days, then 2 tabs for 3 days then 1 tab for 3 days with food. CIPROFLOXACIN 250 MG TABLET 14 t* 0 08/20/2018 08/27/2018 Route: ORAL Sig: Take 1 tablet by mouth twice daily for 7 days. Encounter Status:Closed by CRISSY MADDOX CNP on 08/20/18 Observed: 08/20/2018 Status: F Source: [facility] URINE CULTURE 3:37 AM [facility] Sp. Request/Comment: - Specimen received in preservative Culture Result - 10,000 - <50,000 CFU/ml Enterococcus faecalis --> ABNORMAL ALERT Cephalosporins, clindamycin, and TMP-SMX are not effective for the treatment of enterococcal infections. --> AB NORMAL ALERT Insignificant colony count. No further workup. --> ABNORMAL ALERT 10,000 - <50,000 CFU/ml Normal urogenital astrid Performed By: #### URCUL #### [facility] [address] [place] [address] PROGRESS Observed: 06/24/2018 Status: COMPLETED Source: [facility] 6:11 AM [facility] HNO ID: [id number] Author: Nigel Munoz Service: (none) Author Type: Physician Type: Progress Notes Filed: 06/24/2018 6:13 AM Note Text: HISTORY AND PHYSICAL Jamshid Byrd 1960 REFERRING PHYSICIAN: Kyung Bates III, MD CHIEF COMPLAINT: colonoscopy consult HPI: The patient is a 57 year old female referred for endoscopy. Jamshid notes the following GI complaints: Jamshid notes abdominal pain. The pain occurs in the following locations: In the lower abdomen before and after bowel movements . Jamshid . Multiple loose stools per day, more so than diarrhea, but she notes approximately 6-7 bowel movements per day which are loose green and somewhat sticky. She denies blood in her stools. Jamshid denies constipation. Jamshid notes a change in bowel habits. Jamshid denies melena. Jamshid denies bright red blood per rectum. Jamshid denies hemorrhoids. The patient notes the following upper complaints: Jamshid notes heartburn if she does not take her proton pump inhibitor medication regularly. Jamshid denies dysphagia. Jamshid denies a history of ulcers/ peptic ulcer disease. Jamshid has undergone prior endoscopy. She had 2 adenomatous polyps removed in 2012. It was recommended she have follow-up colonoscopy in 3 years. The patient is being seen by me today at the request of Dr. Kyung Bates III MD for my opinion and advice regarding abdominal pain, change in bowel habits, history of adenomatous polyps and reflux. She was initially scheduled for endoscopy in January. She was canceled the day of the procedure because she had recently used marijuana and cocaine. Her procedure then had to be rescheduled again. She now returns to rescheduled for upper and lower endoscopy. She has used marijuana recently, but has not used cocaine recently. 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 - Diaphragmatic hernia without mention of obstruction or gangrene - Drug abuse and dependence (HCC) 10/24/2012 - Esophageal reflux - Esophagitis, unspecified - Gastroesophageal reflux disease with esophagitis 11/06/2015 - Genital warts - Herpes simplex labialis 06/12/2014 - Irritable bowel syndrome 09/05/2010 - Other forms of migraine - Snoring - Systemic lupus erythematosus (HCC) 10/24/2012 - TMJ syndrome 10/24/2012 - Tubular adenoma of colon 12/29/12 - Unspecified drug or medicinal substance causing adverse effect in therapeutic use(E947.9) PAST SURGICAL HISTORY Procedure Laterality Date - COLONOSCOP W/ OR W/O [facility] SPEC 12/28/2012 Colonoscopy - CONIZATION CERVIX LOOP ELEC - EGD W/O [facility] SPECIMEN W/BX 01/03/07 - EGD W/O OR W/BRUSH/WASH 12/28/2012 EGD - EXCISION OF LINGUAL TONSIL - PAST SURGICAL HISTORY OF tubal ligation - PAST SURGICAL HISTORY OF 08/22/2009 mid urethral sling Current Outpatient Prescriptions: risperiDONE (RISPERDAL) 1 mg tablet omeprazole (PRILOSEC) 20 mg capsule TAKE 1 CAPSULE TWICE DAILY dicyclomine (BENTYL) 10 mg capsule Take 1 capsule by mouth three times daily. acyclovir (ZOVIRAX) 400 mg tablet Take 1 tablet by mouth twice daily. meloxicam (MOBIC) 15 mg tablet TAKE 1 TABLET BY MOUTH ONCE DAILY. TAKE WITH FOOD. atenolol (TENORMIN) 25 mg tablet TAKE 1 TABLET BY MOUTH ONCE DAILY. LORazepam (ATIVAN) 1 mg tablet DULoxetine (CYMBALTA) 60 mg capsule Take 1 capsule by mouth twice daily. hydroxychloroquine (PLAQUENIL) 200 mg tablet TAKE 1 TABLET BY MOUTH TWICE DAILY. divalproex DR 250 mg EC tablet Take 500 mg by mouth twice daily. No current facility-administered medications for this visit. ALLERGIES: Macrodantin [Nitrofurantoin Macrocrystalline]; Bactrim [Sulfamethoxazole]; [place] PERSONAL HISTORY: Social History Marital status: Spouse name: Years of education: 13 Number of children: 3 Social History Main Topics Smoking status: Current Every Day Smoker Packs/day: 0.50 Years: 34.00 Types: Cigarettes Smokeless tobacco: Never Used Comment: < 1 ppk Alcohol use: Yes 1.5 - 12.0 oz/week Cans of Beer (12oz): 1 - 2 per week Comment: occ Drug use: Yes Comment: occasional marijuana and cocaine use. As of 05/02 has not used cocaine in 1 year. Sexual activity: Yes Partners with: Male control/protection: Tubal Ligation Comment: btl FAMILY HISTORY: FAMILY HISTORY Problem Relation Age of Onset - Breast Cancer Mother - other (Other) Father not in contact with father - Cancer Paternal Grandmother throat - Cancer Paternal Aunt STOMACH - Breast Cancer Maternal Aunt - Psychiatry Brother schizophrenia - Diabetes Brother - Colon Cancer Brother thyroid and liver - other (lung cancer) Brother - Psychiatry Brother explosive personality - None Brother - other (obesity) Sister REVIEW OF SYMPTOMS: The review of systems data was entered by the nurse and reviewed by me There are no exam notes on file for this visit. PHYSICAL EXAMINATION: General: The patient is 57 year old female, well nourished, well hydrated in no acute distress. The patient is oriented to time, place, and person. VITALS: Blood pressure 114/72, pulse 64, last menstrual period 09/08/2007. There is no height or weight on file to calculate BMI. HEENT: Normal cephalic, ataumatic, pupils are equally round, sclera are anicteric, mucous membranes are moist, oropharynx is clear. Neck has no masses, asymmetry or lymphadenopathy. Thyroid is unremarkable. Respiratory: Clear to auscultation and percussion. Normal respiratory excursion and pattern. Cardiac: Examination is regular rate and rhythm. Abdominal exam: Soft, nontender, with no palpable masses. No hepatosplenomegaly. No palpable hernias. Rectal exam: exam deferred Extremities: no clubbing, cyanosis or edema. No adenopathy. Other: LABORATORY VALUES: As Noted RADIOLOGIC STUDIES: As Noted Assessment IMPRESSION: Change in bowel habits, diarrhea, crampy abdominal pain, reflux, history of colon polyps PLAN: I plan to perform upper and lower endoscopy. We discussed the risks and benefits of the planned endoscopy. I have informed the patient that complications can occur including failure to complete the endoscopy and perforation. The patient had the opportunity to ask questions concerning the planned endoscopy. My staff has also explained the procedure to the patient in understandable terms and has given the patient printed material concerning the procedure. The patient freely consents to surgery. I plan to use golytely bowel preparation for endoscopy. I have ordered a urine toxicology screen. Diagnoses: (Z87.898) History of cocaine use (primary encounter diagnosis) (R13.10) Dysphagia, unspecified type (Z86.010) Personal history of colonic polyps My findings have been communicated to Dr. Kyung Bates III MD via shared medical record. This note will be forwarded to Dr. Kyung Bates III MD. Return to Clinic: The patient is instructed to follow-up with me after the testing has been completed. Nigel Munoz MD CNOV Observed: 06/23/2018 Status: COMPLETED Source: [facility] 1:00 PM [facility] Office Visit (GENSWS) JAMSHID BYRD ([id number]) 1960 F Date Time Provider Department 06/23/18 1:00 PM NIGEL MUNOZ During your visit today, we recorded the following information about you: Pulse Blood pressure 64/minute 114/72 Nigel Munoz MD 06/24/2018 6:13 AM Signed HISTORY AND PHYSICAL Jamshid Byrd 1960 REFERRING PHYSICIAN: Kyung Bates III, MD CHIEF COMPLAINT: colonoscopy consult HPI: The patient is a 57 year old female referred for endoscopy. Jamshid notes the following GI complaints: Jamshid notes abdominal pain. The pain occurs in the following locations: In the lower abdomen before and after bowel movements . Jamshid . Multiple loose stools per day, more so than diarrhea, but she notes approximately 6-7 bowel movements per day which are loose green and somewhat sticky. She denies blood in her stools. Jamshid denies constipation. Jamshid notes a change in bowel habits. Jamshid denies melena. Jamshid denies bright red blood per rectum. Jamshid denies hemorrhoids. The patient notes the following upper complaints: Jamshid notes heartburn if she does not take her proton pump inhibitor medication regularly. Jamshid denies dysphagia. Jamshid denies a history of ulcers/ peptic ulcer disease. Jamshid has undergone prior endoscopy. She had 2 adenomatous polyps removed in 2012. It was recommended she have follow-up colonoscopy in 3 years. The patient is being seen by me today at the request of Dr. Kyung Bates III MD for my opinion and advice regarding abdominal pain, change in bowel habits, history of adenomatous polyps and reflux. She was initially scheduled for endoscopy in January. She was canceled the day of the procedure because she had recently used marijuana and cocaine. Her procedure then had to be rescheduled again. She now returns to rescheduled for upper and lower endoscopy. She has used marijuana recently, but has not used cocaine recently. 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 - Diaphragmatic hernia without mention of obstruction or gangrene - Drug abuse and dependence (HCC) 10/24/2012 - Esophageal reflux - Esophagitis, unspecified - Gastroesophageal reflux disease with esophagitis 11/06/2015 - Genital warts - Herpes simplex labialis 06/12/2014 - Irritable bowel syndrome 09/05/2010 - Other forms of migraine - Snoring - Systemic lupus erythematosus (HCC) 10/24/2012 - TMJ syndrome 10/24/2012 - Tubular adenoma of colon 12/29/12 - Unspecified drug or medicinal substance causing adverse effect in therapeutic use(E947.9) PAST SURGICAL HISTORY Procedure Laterality Date - COLONOSCOP W/ OR W/O [facility] SPEC 12/28/2012 Colonoscopy - CONIZATION CERVIX LOOP ELEC - EGD W/O [facility] SPECIMEN W/BX 01/03/07 - EGD W/O OR W/BRUSH/WASH 12/28/2012 EGD - EXCISION OF LINGUAL TONSIL - PAST SURGICAL HISTORY OF tubal ligation - PAST SURGICAL HISTORY OF 08/22/2009 mid urethral sling Current Outpatient Prescriptions: risperiDONE (RISPERDAL) 1 mg tablet omeprazole (PRILOSEC) 20 mg capsule TAKE 1 CAPSULE TWICE DAILY dicyclomine (BENTYL) 10 mg capsule Take 1 capsule by mouth three times daily. acyclovir (ZOVIRAX) 400 mg tablet Take 1 tablet by mouth twice daily. meloxicam (MOBIC) 15 mg tablet TAKE 1 TABLET BY MOUTH ONCE DAILY. TAKE WITH FOOD. atenolol (TENORMIN) 25 mg tablet TAKE 1 TABLET BY MOUTH ONCE DAILY. LORazepam (ATIVAN) 1 mg tablet DULoxetine (CYMBALTA) 60 mg capsule Take 1 capsule by mouth twice daily. hydroxychloroquine (PLAQUENIL) 200 mg tablet TAKE 1 TABLET BY MOUTH TWICE DAILY. divalproex DR 250 mg EC tablet Take 500 mg by mouth twice daily. No current facility-administered medications for this visit. ALLERGIES: Macrodantin [Nitrofurantoin Macrocrystalline]; Bactrim [Sulfamethoxazole]; [employer] PERSONAL HISTORY: Social History Marital status: Spouse name: Years of education: 13 Number of children: 3 Social History Main Topics Smoking status: Current Every Day Smoker Packs/day: 0.50 Years: 34.00 Types: Cigarettes Smokeless tobacco: Never Used Comment: < 1 ppk Alcohol use: Yes 1.5 - 12.0 oz/week Cans of Beer (12oz): 1 - 2 per week Comment: occ Drug use: Yes Comment: occasional marijuana and cocaine use. As of 05/02 has not used cocaine in 1 year. Sexual activity: Yes Partners with: Male control/protection: Tubal Ligation Comment: btl FAMILY HISTORY: FAMILY HISTORY Problem Relation Age of Onset - Breast Cancer Mother - other (Other) Father not in contact with father - Cancer Paternal Grandmother throat - Cancer Paternal Aunt STOMACH - Breast Cancer Maternal Aunt - Psychiatry Brother schizophrenia - Diabetes Brother - Colon Cancer Brother thyroid and liver - other (lung cancer) Brother - Psychiatry Brother explosive personality - None Brother - other (obesity) Sister REVIEW OF SYMPTOMS: The review of systems data was entered by the nurse and reviewed by me There are no exam notes on file for this visit. PHYSICAL EXAMINATION: General: The patient is 57 year old female, well nourished, well hydrated in no acute distress. The patient is oriented to time, place, and person. VITALS: Blood pressure 114/72, pulse 64, last menstrual period 09/08/2007. There is no height or weight on file to calculate BMI. HEENT: Normal cephalic, ataumatic, pupils are equally round, sclera are anicteric, mucous membranes are moist, oropharynx is clear. Neck has no masses, asymmetry or lymphadenopathy. Thyroid is unremarkable. Respiratory: Clear to auscultation and percussion. Normal respiratory excursion and pattern. Cardiac: Examination is regular rate and rhythm. Abdominal exam: Soft, nontender, with no palpable masses. No hepatosplenomegaly. No palpable hernias. Rectal exam: exam deferred Extremities: no clubbing, cyanosis or edema. No adenopathy. Other: LABORATORY VALUES: As Noted RADIOLOGIC STUDIES: As Noted Assessment IMPRESSION: Change in bowel habits, diarrhea, crampy abdominal pain, reflux, history of colon polyps PLAN: I plan to perform upper and lower endoscopy. We discussed the risks and benefits of the planned endoscopy. I have informed the patient that complications can occur including failure to complete the endoscopy and perforation. The patient had the opportunity to ask questions concerning the planned endoscopy. My staff has also explained the procedure to the patient in understandable terms and has given the patient printed material concerning the procedure. The patient freely consents to surgery. I plan to use golytely bowel preparation for endoscopy. I have ordered a urine toxicology screen. Diagnoses: (Z87.108) History of cocaine use (primary encounter diagnosis) (R13.10) Dysphagia, unspecified type (Z86.010) Personal history of colonic polyps My findings have been communicated to Dr. Kyung Bates III MD via shared medical record. This note will be forwarded to Dr. Kyung Bates III MD. Return to Clinic: The patient is instructed to follow-up with me after the testing has been completed. Nigel Munoz MD Referring Provider: SELF [[id number]] Allergies As of Date: 06/23/2018 Noted Allergy Reaction MACRODANTIN (NITROFURANTOIN MACRO*02/10/2010 10 - Anaphylaxis BACTRIM (SULFAMETHOXAZOLE) 09/25/2014 14 - Other: See Comments Comments: mouth sores--Paredes Dillon reaction LITHIUM 02/08/2012 2 - Rash Date Reviewed: 06/23/2018 Reviewed by: Nigel Munoz - Fully Assessed Reason for Visit: Established Patient [[id number]] Cmt: Colonoscopy scheduled Primary Visit Diagnosis:History of cocaine use [Z87.898] Other Visit Diagnoses:Dysphagia, unspecified type [R13.10] Personal history of colonic polyps [Z86.010] Order(s):TOX SCREEN ROUT UR [SQUTOX2] Order #: [id number] Prescriptions as of 06/23/2018 Sig: RISPERIDONE 1 MG TABLET OMEPRAZOLE 20 MG CAPSULE,TAYE* TAKE 1 CAPSULE TWICE DAILY DICYCLOMINE 10 MG CAPSULE Take 1 capsule by mouth three* ACYCLOVIR 400 MG TABLET Take 1 tablet by mouth twice * MELOXICAM 15 MG TABLET TAKE 1 TABLET BY MOUTH ONCE D* ATENOLOL 25 MG TABLET TAKE 1 TABLET BY MOUTH ONCE D* LORAZEPAM 1 MG TABLET DULOXETINE 60 MG CAPSULE,TAYE* Take 1 capsule by mouth twice* HYDROXYCHLOROQUINE 200 MG TAB* TAKE 1 TABLET BY MOUTH TWICE * DIVALPROEX 250 MG TABLET,TAYE* Take 500 mg by mouth twice da* Medication notes this encounter HYDROXYCHLOROQUINE 200 MG TABLET >> Nain Quintero LPN 06/23/2018 1:10 PM >> NAIN QUINTERO LPN [facility] Jun 23, 2018 1:10 PM please D/c DIVALPROEX 250 MG TABLET,DELAYED RELEASE >> Nain Quintero LPN 06/23/2018 1:10 PM >> NAIN QUINTERO LPN [facility] Jun 23, 2018 1:10 PM please D/c Problem List As Of Date 06/23/2018 Noted Resolved MIGRAINE NOS W/O MENTN INTRACTABLE [G43.909] INVALID FOR* Bipolar I disorder (HCC) [F31.9] INVALID FOR* Open wound of knee, leg (except thigh), and ank*INVALID FOR*11/22/2012 Acute gastritis without mention of hemorrhage [*INVALID FOR*11/22/2012 DIAPHRAGMATIC HERNIA [K44.9] INVALID FOR* Lateral epicondylitis of elbow [M77.10] INVALID FOR*11/22/2012 ADJUSTMENT DISORDER WITH DEPRESSED MOOD [F43.21]INVALID FOR* Plantar fascial fibromatosis [M72.2] INVALID FOR*11/30/2016 Pain in limb [M79.609] INVALID FOR*03/21/2015 Female Stress Incontinence [N39.3] INVALID FOR*10/09/2009 Urge Incontinence [N39.41] INVALID FOR*10/09/2009 Other chronic cystitis [N30.20] INVALID FOR*06/04/2016 Irritable bowel syndrome [K58.9] INVALID FOR* Trochanteric bursitis of both hips [M70.61, M70*INVALID FOR* 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 Knee pain, bilateral [M25.561, M25.562] INVALID FOR*10/04/2017 Arthritis of knee, left [M17.12] INVALID FOR*10/04/2017 Herpes simplex labialis [B00.1] INVALID FOR*10/04/2017 Psoriasis with arthropathy (HCC) [L40.50] INVALID FOR* Benign essential tremor [G25.0] INVALID FOR* Tobacco use [Z72.0] INVALID FOR* SOB (shortness of breath) on exertion [R06.02] INVALID FOR* Chronic tension-type headache, not intractable *INVALID FOR* Nausea [R11.0] INVALID FOR*10/04/2017 Pyoderma (skin infection) [L08.0] INVALID FOR*10/04/2017 Gastroesophageal reflux disease with esophagiti*INVALID FOR* Muscle contraction headache [G44.209] INVALID FOR*10/04/2017 Upper back pain [M54.9] INVALID FOR* Vasomotor rhinitis [J30.0] INVALID FOR* Fibromyalgia [M79.7] INVALID FOR* Recurrent urinary tract infection [N39.0] INVALID FOR* Genital warts [A63.0] INVALID FOR*10/04/2017 History of hysterectomy [Z90.710] INVALID FOR*08/21/2016 Medication management [Z79.899] INVALID FOR* Cutaneous lupus erythematosus [L93.2] INVALID FOR* KRISTINA I (cervical intraepithelial neoplasia I) [N*INVALID FOR* More... Personal history of colonic polyps [Z86.010] INVALID FOR* More... Esophageal reflux [K21.9] INVALID FOR* More... Elevated serum creatinine [R79.89] INVALID FOR* Screening for colon cancer [Z12.11] INVALID FOR* More... Encounter Status:Closed by NIGEL MUNOZ MD on 06/24/18 NURSING PROG Observed: 06/07/2018 Status: COMPLETED Source: [facility] 12:53 PM CLINIC OTHER [facility] REPOSITORY HNO ID: [id number] Author: Ashley (Rn) YANNI Frost Service: (none) Author Type: Registered Nurse Type: Nursing Progress Note Filed: 06/07/2018 1:11 PM Note Text: PACC Nurse Progress Note History AND Physical: PACC Visit Date: 05-02-18 Original HANDP Date: 05-02-18- too old for procedure on 06-08-18 ED visit Date: N/A Outside HANDP Scanned Date: N/A Labs Within Last 6 Months: CBC: Date 05-18-18- WNL BMP/CMP: Date 05-18-18- BUN 34/creatinine 1.33 Imaging Within Last 12 Months: N/A Cardiac Testing: N/A Last Menstrual Period: LMP Date: 09-08-07 Postmenopausal >1yr: Yes, S/P Hysterectomy: N/A BMI Percentile (PEDS): N/A Risk Assessment: N/A Anesthesia Review: N/A Narrative: Patient did not respond to call from schedulers to make appointment for PACC. Surgeon's office was notified by scheduling. Spoke with patient and she intends to have procedure tomorrow. Instructed patient to contact surgeon's office. Reviewed instructions given to patient on 05-02-18. Sent Email to [facility] that HANDP needed on day of procedure. Ashley Frost RN Pre-op Considerations: Lupus IBS Bipolar Chart Check: COMPLETED- HANDP needed DOS Ashley Frost RN June 07, 2018 12:53 PM PATIENT PREOPERATIVE INSTRUCTIONS No ref. provider found has scheduled you for your procedure at this surgery center: [facility]: [phone] -- [address] [facility] [address] [id number]. Please read below carefully for your personalized instructions. Blood Thinning Medications: - Stop NSAIDS (Ibuprofen, Advil, Aleve, Motrin, Celebrex, Mobic, etc.) today days before surgery, as directed by your surgeon. Dietary Restrictions: Follow bowel prep instructions given by office. No solid food today. Per Dr. Munoz's orders- no food or liquids after midnight tonight. Pain Medications: Medications: Approved medications to take the morning of surgery with a sip of water: Resperidol, prilosec, Atenolol. Cymbalta If you start any new medications after today's visit, please contact the surgery center above. Important Reminders: - Candy, mints, gum and tobacco products are NOT permitted the morning of surgery. - Hearing aids, dentures and glasses may be worn the morning of surgery. - NO jewelry, body piercings, makeup, hairpins or contacts are to be worn the day of surgery. If you develop symptoms such as a fever, cold, or flu, or have other changes to your health within TWO DAYS of scheduled surgery or the morning of surgery, please contact the surgery center above. Personal Belongings: - Leave ALL valuables and money at home or with family members. For Outpatient Procedures: - YOU MUST HAVE A RESPONSIBLE AUTOMATION ARCHITECT TAKE YOU HOME. A CHEMISTRY QUALITY CONTROL ANALYST OR BOOSTER STATION OPERATOR CANNOT BE MADE A RESPONSIBLE AUTOMATION ARCHITECT. - We recommend that a responsible person stays with you overnight to take care of you. - You cannot stay in a hotel alone after outpatient surgery. You will not be permitted to have your surgery, if you do not have someone to take care of you. Arrival Time for Surgery: - The Surgery Center or hospital where you are having surgery will call the afternoon before surgery (or Wednesday for Wednesday surgery) with a scheduled arrival time. - If you have not heard by 4 pm, please contact the surgery center above. Please be aware that emergency situations arise, which may delay or change your surgical time. If this happens, we will notify you as soon as possible and regret any inconvenience. Ashley Frost RN NURSING PROG Observed: 05/31/2018 Status: COMPLETED Source: LEE 7:44 AM [facility] REPOSITORY HNO ID: [id number] Author: Chasity FangRn) YANNI Zheng Service: (none) Author Type: Registered Nurse Type: Nursing Progress Note Filed: 05/31/2018 7:49 AM Note Text: PACC Nurse Progress Note History AND Physical: PACC Visit Date: 05/02/18 Original HANDP Date: N/A ED visit Date: N/A Outside HANDP Scanned Date: N/A Labs Within Last 6 Months: CBC: Date 05/18/18- within acceptable limits BMP/CMP: Date -BUN-34, creatinine-1.33 Imaging Within Last 12 Months: N/A Cardiac Testing: N/A Last Menstrual Period: LMP Date: 09/08/2007 Postmenopausal >1yr: Yes, S/P Hysterectomy: No BMI Percentile (PEDS): N/A Risk Assessment: N/A Anesthesia Review: N/A Narrative: Per HPI: Current smoker; history of Lupus; history of IBS, Bipolar disorder Pre-op Considerations: N/A Chart Check: COMPLETED Chasity Zheng RN May 31, 2018 7:45 AM PROGRESS Observed: 05/19/2018 Status: COMPLETED Source: LEE 7:03 PM [facility] REPOSITORY HNO ID: [id number] Author: Kyung Bates III Service: (none) Author Type: Physician Type: Progress Notes Filed: 05/19/2018 7:03 PM Note Text: Jamshid, You do have some elevation of the serum creatinine which may be caused by under hydration. We will need to recheck this blood test in one month. Fasting is not required so you should come to the lab well- hydrated for the recheck. All the other lab results are fine. I'm still awaiting the urine culture result. We will need to check routine management labs for the use of Plaquenil every 3 months. Kyung Bates III, MD, FAAFP Observed: 05/18/2018 Status: F Source: LEE URINE CULTURE 4:06 PM [facility] REPOSITORY Sp. Request/Comment: - Specimen received in preservative Culture Result - 50,000 - <100,000 CFU/ml Escherichia coli --> ABNORMAL ALERT ORGANISM: Escherichia coli METHOD: Minimum inhibitory concentration(Vitek) Antibiotic Interp KAYLA Status Ampicillin RESISTANT >=32 F Gentamicin SUSCEPTIBLE <=1 F Trimeth sulfameth SUSCEPTIBLE <=20 F Cefazolin SUSCEPTIBLE 8 F CLSI breakpoints for therapy of uncomplicated UTI's due to E.coli, K.pneumoniae, and P.mirabilis were applied and may be used to predict the activity of oral agents(cefaclor, cefdinir, cefpodoxime, cefp rozil, cefuroxime, cephalexin, loracarbef). Ciprofloxacin SUSCEPTIBLE <=0.25 F Nitrofurantoin SUSCEPTIBLE <=16 F Cefepime SUSCEPTIBLE <=1 F Piperacillin/Tazobac SUSCEPTIBLE <=4 F Ampicillin Sulbact INTERMEDIATE 16 F Ceftriaxone SUSCEPTIBLE <=1 F Meropenem SUSCEPTIBLE <=0.25 F Ertapenem SUSCEPTIBLE <=0.5 F Performed By: #### URCUL #### [facility] [address] [place], [place] [address] COMP METABOLIC PANEL Collected: 05/18/2018 Status: F Source: LEE 4:05 PM [facility] REPOSITORY TYPE CODE TESTS RESULT OUT OF REFERENCE UNITS RANGE LAB TP 6.3-8.0 g/dL Protein, Total 6.7 LAB ALB 3.9-4.9 g/dL Albumin 4.2 LAB CA 8.5-10.2 mg/dL Calcium, Total 9.2 LAB TBIL 0.2-1.3 mg/dL Bilirubin, Total 0.3 LAB ALKP 32-117 U/L Alkaline Phosphatase 57 LAB AST 13-35 U/L AST 24 LAB GLU 74-99 mg/dL Glucose 88 Result Comment: The [place] [employer] (ADA) provides guidance for cutoff values for fasting glucose and random glucose. The ADA defines fasting as no caloric intake for at least 8 hours. Fas ting plasma glucose results between 100 to 125 mg/dL indicate increased risk for diabetes (prediabetes). Fasting plasma glucose results greater than or equal to 126 mg/dL meet the criteria for diagnosis of diabetes. In the absence of unequivocal hyperglycemia, results should be confirmed by repeat testing. In a patient with classic symptoms of hyperglycemia or hyperglycemic crisis, random plasma glucose results greater than or equal to 200 mg/dL meet the criteria for diagnosis of diabetes. Reference: Standards of Medical Care in Diabetes 2016, [place] [employer]. Diabetes Care. 2016.39(Suppl 1). LAB BUN 7-21 mg/dL BUN High 34 LAB CRET 0.58-0.96 mg/dL Creatinine High 1.33 LAB NA 136-144 mmol/L Sodium 136 LAB K 3.7-5.1 mmol/L Potassium 4.1 LAB CL 97-105 mmol/L Chloride 99 LAB CO2 22-30 mmol/L CO2 24 LAB AGAP 9-18 mmol/L Anion Gap 13 LAB ALT 7-38 U/L ALT 17 LAB GFRAA eGFR- Amer. 50 LAB GFRNAA . eGFR-All Other Races 41 Result Comment: eGFR (Estimated GFR) Units of measure: mL/min/1.73 meters squared eGFR is derived from the reexpressed MDRD Study equation using the following parameters: serum creatinine, age, gender and race. The creatinine assay has been calibrated to be traceable to IDMS. An eGFR <60 mL/min/1.73m2 for >3 months is consistent with chronic kidney disease. Refer to KDOQI guidelines for clinical interpretation. In patients with unstable renal function, e.g. those with acute kidney injury, the eGFR may not accurately reflect actual GFR. Performed By: #### CMP, CBCDIF #### [facility] [address], [place] [address] CBC AND DIFFERENTIAL Collected: 05/18/2018 Status: F Source: LEE 4:05 PM [facility] REPOSITORY TYPE CODE TESTS RESULT OUT OF REFERENCE UNITS RANGE LAB WBC 3.70-11.00 k/uL WBC 9.32 LAB RBC 3.90-5.20 m/uL RBC 4.93 LAB HGB 11.5-15.5 g/dL Hemoglobin 15.1 LAB HCT 36.0-46.0 % High Hematocrit 47.2 LAB MCV 80.0-100.0 fL MCV 95.7 LAB MCH 26.0-34.0 pG MCH 30.6 LAB MCHC 30.5-36.0 g/dL MCHC 32.0 LAB RDWCV 11.5-15.0 % RDW-CV 13.2 LAB PLTCT 150-400 k/uL Platelet Count 209 LAB MPV 9.0-12.7 fL MPV 10.1 LAB ANEUT % Neut% 60.5 LAB AANEUT 1.45-7.50 k/uL Abs Neut 5.64 LAB ALYMP % Lymph% 21.1 LAB AALYMP 1.00-4.00 k/uL Abs Lymph 1.97 LAB AMONO % Highlands% 10.5 LAB AAMONO <0.87 k/uL Abs Highlands High 0.98 LAB AEOS % Eosin% 5.3 LAB AAEOS <0.46 k/uL Abs High Eosin 0.49 LAB ABASO % Baso% 0.0 LAB AABASO <0.11 k/uL Abs Baso 0.00 LAB AMYELO % Myelo% 2.6 LAB LFTIMI Left Shift Present LAB RBCMOR Red Cell Morph SEE COMMENT Result Comment: Unremarkable LAB PLTEST Platelet Platelet Estimate estimate adequate LAB DTYP DTYPE Manual Diff Performed By: #### CMP, CBCDIF #### [facility] [address] [place] [address] PROGRESS Observed: 05/03/2018 Status: COMPLETED Source: LEE 10:02 AM [facility] REPOSITORY HNO ID: [id number] Author: Kyung Bates III Service: (none) Author Type: Physician Type: Progress Notes Filed: 05/03/2018 10:02 AM Note Text: Jamshid, The lab results look fine. I recommend a healthy weight losing diet and regular exercise 150 min/week eat less sugar, bread, potato, pasta, rice, corn, corn syrup, saturated fats may recheck labs in 1 yr Kyung Bates III MD NURSING PROG Observed: 05/03/2018 Status: COMPLETED Source: LEE 8:36 AM [facility] REPOSITORY HNO ID: [id number] Author: Loulou (Rn) YANNI Culp Service: (none) Author Type: Registered Nurse Type: Nursing Progress Note Filed: 05/03/2018 8:39 AM Note Text: PACC Nurse Progress Note History AND Physical: PACC Visit Date: 05/02/18 Original HANDP Date: 05/02/18 ED visit Date: N/A Outside HANDP Scanned Date: N/A Labs Within Last 6 Months: N/A Imaging Within Last 12 Months: N/A Cardiac Testing: N/A Last Menstrual Period: LMP Date: 09/08/2007 Postmenopausal >1yr: Yes, S/P Hysterectomy: No BMI Percentile (PEDS): N/A Risk Assessment: N/A Anesthesia Review: N/A Narrative: N/A Pre-op Considerations: Per HANDP, patient reports: lightheadedness upon rising, HANNA walking around house. Occasional THC use, reports no cocaine use in 1 year. Chart Check: COMPLETED Loulou Culp RN May 03, 2018 8:36 AM HISTORY PHYSICAL Observed: 05/02/2018 Status: COMPLETED Source: LEE 3:33 PM [facility] REPOSITORY HNO ID: [id number] Author: Ana Paula Courtney (Pa) Service: (none) Author Type: Physician Heating Repair Technician Type: HANDP Filed: 05/02/2018 4:24 PM Note Text: HISTORY AND PHYSICAL EXAMINATION SERVICE DATE: 05/02/2018 SERVICE TIME: 3:33 PM PRIMARY CARE PHYSICIAN: Kyung Bates III MD REASON FOR VISIT: Jamshid Byrd is a 57 year old female who is scheduled for colonoscopy and EGD at the request of Dr. Nigel Munoz for consultation. My final recommendation will be communicated back to the requesting physician by way of shared medical record or letter. The patient has the following: ACTIVE PROBLEM LIST Migraine, Unspecified, Without Mention of Intractable Migraine Without Mention of Status Migrainosus Bipolar I Disorder, Most Recent Episode (Or Current) Unspecified Diaphragmatic Hernia Without Mention of Obstruction Or Gangrene Adjustment Disorder With Depressed Mood Irritable Bowel Syndrome Trochanteric Bursitis of Both Hips Drug Abuse and Dependence (Hcc) Tubular Adenoma of Colon Lateral Epicondylitis of Elbow Cervical High Risk Hpv (Human Papillomavirus) Test Positive Psoriasis With Arthropathy (Hcc) Benign Essential Tremor Tobacco Use Sob (Shortness of Breath) On Exertion Chronic Tension-Type Headache, Not Intractable Gastroesophageal Reflux Disease With Esophagitis Upper Back Pain Vasomotor Rhinitis Fibromyalgia Recurrent Urinary Tract Infection 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 Pt states she has IBS and has bouts of diarrhea and constipation. Takes Bentyl. She reports blood in stool a few weeks ago. No melena. No hemorrhoids.No change in appetite and no weight loss. Last colonoscopy was 2011. +polyps. She also has GERD for which she uses Omeprazole daily. No dysphagia. No PUD. No liver disease. Scheduled for colonoscopy and EGD on 05/04. Denies recent illness, fever or chills. 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 - Diaphragmatic hernia without mention of obstruction or gangrene - Drug abuse and dependence (HCC) 10/24/2012 - Esophageal reflux - Esophagitis, unspecified - Gastroesophageal reflux disease with esophagitis 11/06/2015 - Genital warts - Herpes simplex labialis 06/12/2014 - Irritable bowel syndrome 09/05/2010 - Other forms of migraine - Snoring - Systemic lupus erythematosus (HCC) 10/24/2012 - TMJ syndrome 10/24/2012 - Tubular adenoma of colon 12/29/12 - Unspecified drug or medicinal substance causing adverse effect in therapeutic use(E947.9) PAST SURGICAL HISTORY Procedure Laterality Date - COLONOSCOP W/ OR W/O BRSH SPEC 12/28/2012 Colonoscopy - EGD W/O BRSH SPECIMEN W/BX 01/03/07 - EGD W/O OR W/BRUSH/WASH 12/28/2012 EGD - EXCISION OF LINGUAL TONSIL - PAST SURGICAL HISTORY OF tubal ligation - PAST SURGICAL HISTORY OF 08/22/2009 mid urethral sling FAMILY HISTORY Problem Relation Age of Onset - Breast Cancer Mother - Other [OTHER] Father not in contact with father - Cancer Paternal Grandmother throat - Cancer Paternal Aunt STOMACH - Breast Cancer Maternal Aunt - Psychiatry Brother schizophrenia - Diabetes Brother - Colon Cancer Brother thyroid and liver - lung cancer [OTHER] Brother - Psychiatry Brother explosive personality - None Brother - obesity [OTHER] Sister SOCIAL HISTORY: Social History Marital status: Spouse name: Years of education: 13 Number of children: 3 Social History Main Topics Smoking status: Current Every Day Smoker Packs/day: 0.50 Years: 34.00 Types: Cigarettes Smokeless tobacco: Never Used Comment: < 1 ppk Alcohol use: Yes 1.5 - 12.0 oz/week Cans of Beer (12oz): 1 - 2 per week Comment: occ Drug use: Yes Comment: occasional marijuana and cocaine use Sexual activity: Yes Partners with: Male control/protection: Tubal Ligation Comment: btl Prior to Admission medications as of 05/02/18 1602 Medication Sig Last Dose Taking omeprazole (PRILOSEC) 20 mg capsule TAKE 1 CAPSULE TWICE DAILY Yes dicyclomine (BENTYL) 10 mg capsule Take 1 capsule by mouth three times daily. Yes acyclovir (ZOVIRAX) 400 mg tablet Take 1 tablet by mouth twice daily. Yes meloxicam (MOBIC) 15 mg tablet TAKE 1 TABLET BY MOUTH ONCE DAILY. TAKE WITH FOOD. Yes atenolol (TENORMIN) 25 mg tablet TAKE 1 TABLET BY MOUTH ONCE DAILY. Yes hydroxychloroquine (PLAQUENIL) 200 mg tablet TAKE 1 TABLET BY MOUTH TWICE DAILY. Yes LORazepam (ATIVAN) 1 mg tablet Yes divalproex DR 250 mg EC tablet Take 500 mg by mouth twice daily. Yes DULoxetine (CYMBALTA) 60 mg capsule Take 1 capsule by mouth twice daily. Yes Medication Comments documented by Rima Robb LPN on 05/30/2013 at 0818. New med Tompamax-unsure dose. Rima Robb LPN 05/30/13 ALLERGIES Allergen Reactions - Macrodantin [Nitrof* Anaphylaxis - Bactrim [Sulfametho* Other: See Comments mouth sores--Paredes Dillon reaction - Estill Rash REVIEW OF SYSTEMS: PAIN ASSESSMENT: General: No weight loss, malaise or fevers. Neuro: Tremor-takes Atenolol; +headaches;No history of TIAs, stroke, tremors, TIRE BUILDER tumor, hemiplegia, paraplegia, quadriplegia. Respiratory: +Smoker; Occasional marijuana use. Chronic cough; HANNA with walking around house x 1 year-talked to Dr. Bates about this and had testing done. No asthma or COPD. No recent bronchitis or pneumonia. Cardiovascular: +lightheadedness upon rising; +BLE edema; Negative for HTN, HLD, chest pain, orthopnea, PND, dizziness or syncope. Negative for heart murmur. Negative for palpitations or arrhythmia. Negative for h/o DVT/PE. No [place] or heart surgery. GI: see HPI; No PUD or liver disease. No ETOH use. : frequent UTIs-took Keflex last week for dysuria; Currently no dysuria or hematuria, No CKD. ASSISTANT DIRECTOR OF PLANT OPERATIONS: KRISTINA 1 s/p colposcopy; had vaginal bleeding last month; LMP 10 yrs ago. Has not see ASSISTANT DIRECTOR OF PLANT OPERATIONS : Denies, Patient's last menstrual period was 09/08/2007. Endocrine: No history of diabetes. Has not taken steroids within the past 30 days. No history of endocrinological symptoms or problems. Hematology: +easy bruising; No bleeding or clotting d/o. Oncology: see ASSISTANT DIRECTOR OF PLANT OPERATIONS ROS Psych: Bipolar galdrjez-darasxpahu-uf RXs Musculoskeletal: Back pain; +fibromyalgia Skin: LLE rash due to Lupus taking Plaquenil Objective PHYSICAL EXAM: VITALS: BP 110/56 Pulse 53 Temp 98.1 Ht 5' 2.5 (1.59m) Wt 165 lb (74.8kg) SpO2 98% LMP 09/08/2007 BMI 29.68 kg/(m2). General: Alert and oriented, No acute distress Skin: LLE rash HEENT: EOM, pupils equal, round and reactive., No carotid bruits Cardiovascular: Normal S1 AND S2, no rubs, murmurs or gallops. No JVD. Pulse regular. Lungs: Normal breath sounds, no wheezes or crackles., No chest deformities or chest wall tenderness. Abdomen: Soft, SP tenderness, no rigidity., No masses or organomegaly. Extremities: No deformity, no edema or tenderness, no joint swelling or clubbing. Neurological: Normal cognition and motor skills. Gait normal. No weakness or sensory deficit. Pulses: Carotid and radial pulses normal +2. Diagnostic tests reviewed for today's visit: Lab Value Units Date High Low HB 15.4 g/dL 04/28/2018 15.5 11.5 HCT 46.5 % 04/28/2018 46.0 36.0 WBC 4.69 k/uL 04/28/2018 11.00 3.70 PLT 137 k/uL 04/28/2018 400 150 NA 140 mmol/L 04/28/2018 144 136 K 4.4 mmol/L 04/28/2018 5.1 3.7 GLUC 87 mg/dL 04/28/2018 99 74 BUN 21 mg/dL 04/28/2018 21 7 CREAT 0.93 mg/dL 04/28/2018 0.96 0.58 PTSEC No results within date range. INR No results within date range. APTT No results within date range. ALT 16 U/L 04/28/2018 38 7 AST 21 U/L 04/28/2018 35 13 TBILI 0.4 mg/dL 04/28/2018 1.3 0.2 TSH No results within date range. Lab Value Units Date High Low HCGQT No results within date range. UHCG No results within date range. HCG, BODY* No results within date range. Lab Value Units Date High Low ABORHD No results within date range. ABSCREEN No results within date range. No results found for: HBA1C Most recent labs Most recent imaging Most recent EKG: Diagnosis:SINUS RHYTHM WITH ATRIAL BIGEMINY RSR OR QR PATTERN IN SUGGESTS RIGHT VENTRICULAR CONDUCTION DELAY BORDERLINE ECG , reviewed by resource protection specialist. All in Epic Assessment ASSESSMENT Patient has the following medical conditions: Tremor-takes Atenolol Lupus on Plaquenil Smoke Occasional marijuana use Cocaine use-states no use in 1 year Thrombocytopenia HANNA walking in house-?obstruction on Spirometry-no inhaler GERD-Omeprazole Bipolar-on RXs H/o colonic polyps METS: HANNA walking around house. >1 year Had Spirometry 12/25 No chest pain ASA Class: 2 ANESTHESIA FINDINGS: Intubation History: No history of difficult intubation Significant Anesthesia Considerations: None and Difficult IV/Vein Access: yes Airway Exam: General: Normal appearance Mallampati Score is CLASS I ULBT: Class I - Lower incisors can bite the upper lip above the garry line Neck: Distance from hyoid to mentum during neck extension is at least 3 finger breaths, Limited movement turning to one or both sides, Pain with neck movement Mouth: Normal tongue size and Mouth opening greater than 2 finger breaths Dentition: Intact Airway History: No history of difficult intubation STOP BANG Score: Criteria: Tired Age over 50 (57 year old) Score = 2 PLAN This patient is optimally prepared for surgery. CONSULTS: Patient does not require consults for optimization at this time. The Following Tests/Procedures Have Been Initiated: Labs not indicated per PACC protocol, EKG not indicated per PACC protocol Planned Anesthetic: MAC Instructions Given to Patient: Patient given verbal and written preop instructions and voices comprehension and compliance. SIGNATURE: Ana Paula Courtney PA-C PATIENT NAME: Jamshid Byrd DATE: May 02, 2018 TIME: 3:33 PM PAGER/CONTACT #: [id number] Collected: 04/28/2018 Status: F Source: LEE 3:31 PM CLINIC REFERENCE REPOSITORY TYPE CODE TESTS RESULT OUT OF REFERENCE UNITS RANGE LAB WBC(LOINC) 3.70-11.00 k/uL WBC 4.80 LAB RBC(LOINC) 3.90-5.20 m/uL RBC 4.84 LAB HGB(LOINC) 11.5-15.5 g/dL Hemoglobin 15.5 LAB HCT(LOINC) 36.0-46.0 % High Hematocrit 46.4 LAB MCV(LOINC) 80.0-100.0 fL MCV 95.9 LAB MCH(LOINC) 26.0-34.0 pG MCH 32.0 LAB MCHC(LOINC 30.5-36.0 g/dL ) MCHC 33.4 LAB RDWCV(LOIN 11.5-15.0 % C) RDW-CV 14.0 LAB PLTCT(LOIN 150-400 k/uL C) Low Platelet Count 145 LAB MPV(LOINC) 9.0-12.7 fL MPV 11.0 LAB ABSNUC(THIAGO <0.01 k/uL NC) Absolute nRBC <0.01 Performed By: #### CMP, VPA, CBC #### [facility] [address], [place] [address] VALPROIC ACID Collected: 04/28/2018 Status: F Source: LEE 3:31 PM [facility] REFERENCE REPOSITORY TYPE CODE TESTS RESULT OUT OF REFERENCE UNITS RANGE LAB VPA(LOINC) 50-100 ug/mL Valproic Acid 63.6 Performed By: #### CMP, VPA, CBC #### [facility] Routine Lab [address], [place] [address] COMP METABOLIC PANEL Collected: 04/28/2018 Status: F Source: LEE 3:31 PM [facility] REFERENCE REPOSITORY TYPE CODE TESTS RESULT OUT OF REFERENCE UNITS RANGE LAB TP(LOINC) 6.3-8.0 g/dL Low Protein, Total 6.1 LAB ALB(LOINC) 3.9-4.9 g/dL Albumin 3.9 LAB CA(LOINC) 8.5-10.2 mg/dL Calcium, Total 9.2 LAB TBIL(LOINC 0.2-1.3 mg/dL ) Bilirubin, Total 0.4 LAB ALKP(LOINC 32-117 U/L ) Alkaline Phosphatase 49 LAB AST(LOINC) 13-35 U/L AST 17 LAB GLU(LOINC) 74-99 mg/dL Glucose 81 LAB BUN(LOINC) 7-21 mg/dL BUN High 22 LAB CRET(LOINC 0.58-0.96 mg/dL ) Creatinine 0.94 LAB NA(LOINC) 136-144 mmol/L Sodium 138 LAB K(LOINC) 3.7-5.1 mmol/L Potassium 4.7 LAB CL(LOINC) 97-105 mmol/L Chloride 103 LAB CO2(LOINC) 22-30 mmol/L Low CO2 21 LAB AGAP(LOINC 9-18 mmol/L ) Anion Gap 14 LAB ALT(LOINC) 7-38 U/L ALT 14 LAB GFRAA(LOIN C) eGFR- >60 Amer. LAB GFRNAA(THIAGO . NC) eGFR-All Other Races >60 Performed By: #### CMP, VPA, CBC #### [facility] Routine Lab [address], [place] [address] CBC AND DIFFERENTIAL Collected: 04/28/2018 Status: F Source: LEE 3:31 PM [facility] REPOSITORY TYPE CODE TESTS RESULT OUT OF REFERENCE UNITS RANGE LAB WBC 3.70-11.00 k/uL WBC 4.69 LAB RBC 3.90-5.20 m/uL RBC 4.90 LAB HGB 11.5-15.5 g/dL Hemoglobin 15.4 LAB HCT 36.0-46.0 % High Hematocrit 46.5 LAB MCV 80.0-100.0 fL MCV 94.9 LAB MCH 26.0-34.0 pG MCH 31.4 LAB MCHC 30.5-36.0 g/dL MCHC 33.1 LAB RDWCV 11.5-15.0 % RDW-CV 13.9 LAB PLTCT 150-400 k/uL Low Platelet Count 137 LAB MPV 9.0-12.7 fL MPV 10.6 LAB ANEUT % Neut% 51.8 LAB AANEUT 1.45-7.50 k/uL Abs Neut 2.43 LAB ALYMP % Lymph% 29.9 LAB AALYMP 1.00-4.00 k/uL Abs Lymph 1.40 LAB AMONO % Highlands% 13.2 LAB AAMONO <0.87 k/uL Abs Highlands 0.62 LAB AEOS % Eosin% 4.5 LAB AAEOS <0.46 k/uL Abs Eosin 0.21 LAB ABASO % Baso% 0.6 LAB AABASO <0.11 k/uL Abs Baso 0.03 LAB AUNRBC 0 /100 WBC NRBCs 0.0 LAB ABNRBC <0.01 k/uL Absolute nRBC <0.01 LAB DTYP DTYPE Auto Diff Performed By: #### CBCDIF, CMP, LIPB #### [facility] [address] [place], [place] [address] COMP METABOLIC PANEL Collected: 04/28/2018 Status: F Source: LEE 3:31 PM [facility] REPOSITORY TYPE CODE TESTS RESULT OUT OF REFERENCE UNITS RANGE LAB TP 6.3-8.0 g/dL Protein, Total 6.3 LAB ALB 3.9-4.9 g/dL Albumin 4.1 LAB CA 8.5-10.2 mg/dL Calcium, Total 9.2 LAB TBIL 0.2-1.3 mg/dL Bilirubin, Total 0.4 LAB ALKP 32-117 U/L Alkaline Phosphatase 48 LAB AST 13-35 U/L AST 21 LAB GLU 74-99 mg/dL Glucose 87 Result Comment: The [place] [employer] (ADA) provides guidance for cutoff values for fasting glucose and random glucose. The ADA defines fasting as no caloric intake for at least 8 hours. Fas ting plasma glucose results between 100 to 125 mg/dL indicate increased risk for diabetes (prediabetes). Fasting plasma glucose results greater than or equal to 126 mg/dL meet the criteria for diagnosis of diabetes. In the absence of unequivocal hyperglycemia, results should be confirmed by repeat testing. In a patient with classic symptoms of hyperglycemia or hyperglycemic crisis, random plasma glucose results greater than or equal to 200 mg/dL meet the criteria for diagnosis of diabetes. Reference: Standards of Medical Care in Diabetes 2016, [place] [employer]. Diabetes Care. 2016.39(Suppl 1). LAB BUN 7-21 mg/dL BUN 21 LAB CRET 0.58-0.96 mg/dL Creatinine 0.93 LAB NA 136-144 mmol/L Sodium 140 LAB K 3.7-5.1 mmol/L Potassium 4.4 LAB CL 97-105 mmol/L Chloride 102 LAB CO2 22-30 mmol/L CO2 24 LAB AGAP 9-18 mmol/L Anion Gap 14 LAB ALT 7-38 U/L ALT 16 LAB GFRAA eGFR- Amer. >60 LAB GFRNAA . eGFR-All Other Races >60 Result Comment: eGFR (Estimated GFR) Units of measure: mL/min/1.73 meters squared eGFR is derived from the reexpressed MDRD Study equation using the following parameters: serum creatinine, age, gender and race. The creatinine assay has been calibrated to be traceable to IDMS. An eGFR <60 mL/min/1.73m2 for >3 months is consistent with chronic kidney disease. Refer to KDOQI guidelines for clinical interpretation. In patients with unstable renal function, e.g. those with acute kidney injury, the eGFR may not accurately reflect actual GFR. Performed By: #### CBCDIF, CMP, LIPB #### [facility] [address] [place], [place] [address] LIPID PANEL, BASIC Collected: 04/28/2018 Status: F Source: LEE 3:31 PM [facility] REPOSITORY TYPE CODE TESTS RESULT OUT OF REFERENCE UNITS RANGE LAB CHOL <200 mg/dL Cholesterol 168 Result Comment: <200 mg/dL, Desirable 200-239 mg/dL, Borderline high >239 mg/dL, High LAB TRIGLY <150 mg/dL Triglyceride 89 Result Comment: <150 mg/dL, Normal 150-199 mg/dL, Borderline high 200-499 mg/dL, High >499 mg/dL, Very high LAB HDL >39 mg/dL HDL-Cholesterol 53 Result Comment: 40-59 mg/dL, Acceptable >59 mg/dL, High: Negative risk factor for coronary heart disease <40 mg/dL, Low: Positive risk factor for coronary heart disease LAB LDL <100 mg/dL LDL-Cholesterol 97 Result Comment: <100 mg/dL, Optimal 100-129 mg/dL, Near optimal/above optimal 130-159 mg/dL, Borderline high 160-189 mg/dL, High >189 mg/dL, Very high Secondary prevention optimal LDL Cholesterol levels are recommended to be < 70 mg/dL LAB NONHDL <130 mg/dL Non HDL Cholesterol 115 Result Comment: <130 mg/dL, Optimal 130-159 mg/dL, Near optimal/above optimal 160-189 mg/dL, Borderline high 190-219 mg/dL, High >219 mg/dL, Very high Secondary prevention optimal non HDL Cholesterol levels are recommended to be < 100 mg/dL LAB FT hrs Fasting Time 15 LAB VLDL <30 mg/dL VLDL Cholesterol 18 LAB TCHDL <5.10 TC:HDL Ratio 3.17 LAB LDLHDL <2.54 LDL:HDL Ratio 1.83 Result Comment: Reference: 1. National Cholesterol Education Program ATP III Guideline At-A-Glance Quick Desk Reference: National Heart, Lung, and Blood [place]. National Institutes of Health. 2001: NIH Publication No. 01-3305. 2. An International Atherosclerosis Society position paper: global recommendations for the management of dyslipidemia: executive summary, Atherosclerosis. 2014: 232(2):410-413. Performed By: #### CBCDIF, CMP, LIPB #### [facility] [address] [id number] PROGRESS Observed: 03/28/2018 Status: COMPLETED Source: LEE 4:20 PM [facility] REPOSITORY HNO ID: [id number] Author: Ayana Sanders (Doni) Christoph Service: (none) Author Type: Nurse Practitioner Type: Progress Notes Filed: 03/28/2018 4:22 PM Note Text: Subjective HPI Patient presents with: UTI x 1 week, dysuria and frequency. Hx of chronic UTIs Denies any otc treatment for symptoms. Review of Systems Constitutional: Negative for chills, fever and malaise/fatigue. Gastrointestinal: Negative for abdominal pain, nausea and vomiting. Genitourinary: Positive for dysuria and frequency. Negative for flank pain and hematuria. Denies vaginal discharge/itchiness Denies exposure to STD Musculoskeletal: Negative for back pain. All other systems reviewed and are negative. 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 - Diaphragmatic hernia without mention of obstruction or gangrene - Drug abuse and dependence (HCC) 10/24/2012 - Esophageal reflux - Esophagitis, unspecified - Gastroesophageal reflux disease with esophagitis 11/06/2015 - Genital warts - Herpes simplex labialis 06/12/2014 - Irritable bowel syndrome 09/05/2010 - Other forms of migraine - Snoring - Systemic lupus erythematosus (HCC) 10/24/2012 - TMJ syndrome 10/24/2012 - Tubular adenoma of colon 12/29/12 - Unspecified drug or medicinal substance causing adverse effect in therapeutic use(E947.9) PAST SURGICAL HISTORY Procedure Laterality Date - COLONOSCOP W/ OR W/O BRSH SPEC 12/28/2012 Colonoscopy - EGD W/O BRSH SPECIMEN W/BX 01/03/07 - EGD W/O OR W/BRUSH/WASH 12/28/2012 EGD - EXCISION OF LINGUAL TONSIL - PAST SURGICAL HISTORY OF tubal ligation - PAST SURGICAL HISTORY OF 08/22/2009 mid urethral sling ALLERGIES Macrodantin [Nitrofurantoin Macrocrystalline]; Bactrim [Sulfamethoxazole]; Estill MEDICATIONS omeprazole (PRILOSEC) 20 mg capsule TAKE 1 CAPSULE TWICE DAILY meloxicam (MOBIC) 15 mg tablet TAKE 1 TABLET BY MOUTH ONCE DAILY. TAKE WITH FOOD. atenolol (TENORMIN) 25 mg tablet TAKE 1 TABLET BY MOUTH ONCE DAILY. hydroxychloroquine (PLAQUENIL) 200 mg tablet TAKE 1 TABLET BY MOUTH TWICE DAILY. dicyclomine (BENTYL) 10 mg capsule Take 1 capsule by mouth three times daily. LORazepam (ATIVAN) 1 mg tablet acyclovir (ZOVIRAX) 400 mg tablet Take 1 tablet by mouth twice daily. divalproex DR 250 mg EC tablet Take 500 mg by mouth twice daily. DULoxetine (CYMBALTA) 60 mg capsule Take 1 capsule by mouth twice daily. ciprofloxacin HCl (CIPRO) 250 mg tablet Take 1 tablet by mouth twice daily. FAMILY HISTORY Problem Relation Age of Onset - Breast Cancer Mother - Other [OTHER] Father not in contact with father - Cancer Paternal Grandmother throat - Cancer Paternal Aunt STOMACH - Breast Cancer Maternal Aunt - Psychiatry Brother schizophrenia - Diabetes Brother - Colon Cancer Brother thyroid and liver - lung cancer [OTHER] Brother - Psychiatry Brother explosive personality - None Brother - obesity [OTHER] Sister Social History Substance Use Topics - Smoking status: Current Every Day Smoker Packs/day: 0.50 Years: 34.00 Types: Cigarettes - Smokeless tobacco: Never Used Comment: < 1 ppk - Alcohol use 1.5 - 12.0 oz/week 1 - 2 Cans of Beer (12oz) per week Comment: occ Objective Physical Exam Constitutional: She is well-developed, well-nourished, and in no distress. HENT: Head: Normocephalic. Eyes: Conjunctivae are normal. Neck: Normal range of motion. Cardiovascular: Normal rate, regular rhythm and normal heart sounds. Pulmonary/Chest: Effort normal and breath sounds normal. Abdominal: Soft. She exhibits no distension. There is no tenderness. There is no rebound, no guarding and no CVA tenderness. Skin: Skin is warm and dry. No rash noted. Nursing note and vitals reviewed. ASSESSMENT/PLAN: 1. Dysuria - ICD9: 788.1, ICD10: R30.0 acute - UA positive for fermin esterase, hematuria, proteinuria and nitrates - Send urine for culture - Begin treatment with Ciprofloxacin 250 mg BID for 5 days, per pt request - Patient education for prevention given - UA DIP B/O - URINE CULTURE - F/u with pcp in 3-5 days or sooner if symptoms are not improving or worsening Prescription instructions reviewed with patient as applicable. Patient advised if symptoms do not improve or if symptoms worsen sooner, to contact their primary care physician. Potential red flag symptoms discussed with the patient. Reviewed appropriate action plan to take if red flag symptoms occur. Patient agreeable to treatment plan. Ayana Culp APRN.MACHINE PACKAGE SEALER Observed: 03/28/2018 Status: F Source: LEE URINE CULTURE 4:19 PM [facility] REPOSITORY Sp. Request/Comment: - Specimen received in preservative Culture Result - >=100,000 CFU/ml Escherichia coli --> ABNORMAL ALERT ORGANISM: Escherichia coli METHOD: Minimum inhibitory concentration(Vitek) Antibiotic Interp KAYLA Status Ampicillin RESISTANT >=32 F Gentamicin SUSCEPTIBLE <=1 F Trimeth sulfameth SUSCEPTIBLE <=20 F Cefazolin SUSCEPTIBLE <=4 F CLSI breakpoints for therapy of uncomplicated UTI's due to E.coli, K.pneumoniae, and P.mirabilis were applied and may be used to predict the activity of oral agents(cefaclor, cefdinir, cefpodoxime, cefp rozil, cefuroxime, cephalexin, loracarbef). Ciprofloxacin SUSCEPTIBLE <=0.25 F Nitrofurantoin SUSCEPTIBLE <=16 F Cefepime SUSCEPTIBLE <=1 F Piperacillin/Tazobac SUSCEPTIBLE <=4 F Ampicillin Sulbact RESISTANT >=32 F Ceftriaxone SUSCEPTIBLE <=1 F Meropenem SUSCEPTIBLE <=0.25 F Ertapenem SUSCEPTIBLE <=0.5 F Performed By: #### URCUL #### [facility] [address] [place], [place] [address] CNOV Observed: 03/28/2018 Status: COMPLETED Source: LEE 3:45 PM [facility] REPOSITORY Office Visit ([facility]STR) JAMSHID BYRD ([id number]) 1960 F Date Time Provider Department 03/28/18 3:45 PM AYANA CULP (CRM SPECIALIST) WSTR During your visit today, we recorded the following information about you: Temperature Pulse Respiration Blood pressure 98.8 degrees 74/minute 24/minute 100/80 Weight 75.3 kg Ayana Culp APRN.MACHINE PACKAGE SEALER 03/28/2018 4:00 PM Signed Patient Education for Female Urinary Tract Infections Possible complications: Pyelonehritis Renal abscess Expected course/prognosis: * symptoms resolve within 2-3 days after starting treatment in almost all patients * one-fourth of women with simple UTI experience a second UTI within 6 months, and half at some time during lifetime. * patients with multiple recurrent UTI and no underlying urinary tract abnormality may receive long-term prophylactic antibioitic treatment. Trimethoprim-sulfamethoxazole and nitrofurantoin common used. * women with frequent or intercourse-related UTI should empty bladder immediately before and following intercourse and consider postcoital antibiotic treament Instructions: * Maintain good hydration * Avoid sexual intercourse when symptoms present *Take antibiotic as directed * Return if symptoms not resolved or markedly improved within 48 hours * Return if fever, chills, or flank pain develop * If taking prophylactic antiobiotics, take at bedtime * Take showers instead of tub baths * Avoid feminine hygiene sprays and scented douches * Wipe urethra from front to back Please call or return to the office if you are not feeling better in 5-7 days. You can try taking OTC Uristat (pyridium) if needed for burning. Beware that it will turn your urine orange/red. Ayana Culp APRN.MACHINE PACKAGE SEALER 03/28/2018 4:22 PM Signed Subjective HPI Patient presents with: UTI x 1 week, dysuria and frequency. Hx of chronic UTIs Denies any otc treatment for symptoms. Review of Systems Constitutional: Negative for chills, fever and malaise/fatigue. Gastrointestinal: Negative for abdominal pain, nausea and vomiting. Genitourinary: Positive for dysuria and frequency. Negative for flank pain and hematuria. Denies vaginal discharge/itchiness Denies exposure to STD Musculoskeletal: Negative for back pain. All other systems reviewed and are negative. 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 - Diaphragmatic hernia without mention of obstruction or gangrene - Drug abuse and dependence (HCC) 10/24/2012 - Esophageal reflux - Esophagitis, unspecified - Gastroesophageal reflux disease with esophagitis 11/06/2015 - Genital warts - Herpes simplex labialis 06/12/2014 - Irritable bowel syndrome 09/05/2010 - Other forms of migraine - Snoring - Systemic lupus erythematosus (HCC) 10/24/2012 - TMJ syndrome 10/24/2012 - Tubular adenoma of colon 12/29/12 - Unspecified drug or medicinal substance causing adverse effect in therapeutic use(E947.9) PAST SURGICAL HISTORY Procedure Laterality Date - COLONOSCOP W/ OR W/O BRSH SPEC 12/28/2012 Colonoscopy - EGD W/O BRSH SPECIMEN W/BX 01/03/07 - EGD W/O OR W/BRUSH/WASH 12/28/2012 EGD - EXCISION OF LINGUAL TONSIL - PAST SURGICAL HISTORY OF tubal ligation - PAST SURGICAL HISTORY OF 08/22/2009 mid urethral sling ALLERGIES Macrodantin [Nitrofurantoin Macrocrystalline]; Bactrim [Sulfamethoxazole]; Estill MEDICATIONS omeprazole (PRILOSEC) 20 mg capsule TAKE 1 CAPSULE TWICE DAILY meloxicam (MOBIC) 15 mg tablet TAKE 1 TABLET BY MOUTH ONCE DAILY. TAKE WITH FOOD. atenolol (TENORMIN) 25 mg tablet TAKE 1 TABLET BY MOUTH ONCE DAILY. hydroxychloroquine (PLAQUENIL) 200 mg tablet TAKE 1 TABLET BY MOUTH TWICE DAILY. dicyclomine (BENTYL) 10 mg capsule Take 1 capsule by mouth three times daily. LORazepam (ATIVAN) 1 mg tablet acyclovir (ZOVIRAX) 400 mg tablet Take 1 tablet by mouth twice daily. divalproex DR 250 mg EC tablet Take 500 mg by mouth twice daily. DULoxetine (CYMBALTA) 60 mg capsule Take 1 capsule by mouth twice daily. ciprofloxacin HCl (CIPRO) 250 mg tablet Take 1 tablet by mouth twice daily. FAMILY HISTORY Problem Relation Age of Onset - Breast Cancer Mother - Other [OTHER] Father not in contact with father - Cancer Paternal Grandmother throat - Cancer Paternal Aunt STOMACH - Breast Cancer Maternal Aunt - Psychiatry Brother schizophrenia - Diabetes Brother - Colon Cancer Brother thyroid and liver - lung cancer [OTHER] Brother - Psychiatry Brother explosive personality - None Brother - obesity [OTHER] Sister Social History Substance Use Topics - Smoking status: Current Every Day Smoker Packs/day: 0.50 Years: 34.00 Types: Cigarettes - Smokeless tobacco: Never Used Comment: < 1 ppk - Alcohol use 1.5 - 12.0 oz/week 1 - 2 Cans of Beer (12oz) per week Comment: occ Objective Physical Exam Constitutional: She is well-developed, well-nourished, and in no distress. HENT: Head: Normocephalic. Eyes: Conjunctivae are normal. Neck: Normal range of motion. Cardiovascular: Normal rate, regular rhythm and normal heart sounds. Pulmonary/Chest: Effort normal and breath sounds normal. Abdominal: Soft. She exhibits no distension. There is no tenderness. There is no rebound, no guarding and no CVA tenderness. Skin: Skin is warm and dry. No rash noted. Nursing note and vitals reviewed. ASSESSMENT/PLAN: 1. Dysuria - ICD9: 788.1, ICD10: R30.0 acute - UA positive for fermin esterase, hematuria, proteinuria and nitrates - Send urine for culture - Begin treatment with Ciprofloxacin 250 mg BID for 5 days, per pt request - Patient education for prevention given - UA DIP B/O - URINE CULTURE - F/u with pcp in 3-5 days or sooner if symptoms are not improving or worsening Prescription instructions reviewed with patient as applicable. Patient advised if symptoms do not improve or if symptoms worsen sooner, to contact their primary care physician. Potential red flag symptoms discussed with the patient. Reviewed appropriate action plan to take if red flag symptoms occur. Patient agreeable to treatment plan. Ayana Culp, GERALD.MACHINE PACKAGE SEALER Referring Provider: SELF [[id number]] Allergies As of Date: 03/28/2018 Noted Allergy Reaction MACRODANTIN (NITROFURANTOIN MACRO*02/10/2010 10 - Anaphylaxis BACTRIM (SULFAMETHOXAZOLE) 09/25/2014 14 - Other: See Comments Comments: mouth sores--Paredes Dillon reaction LITHIUM 02/08/2012 2 - Rash Date Reviewed: 03/28/2018 Reviewed by: Ayana Sanders (Oncology Coordinator) Christoph - Fully Assessed Reason for Visit: UTI [116] Primary Visit Diagnosis:Dysuria [R30.0] Order(s):UA DIP B/O [[id number]] Order #: [id number] URINE CULTURE [SQURCUL] Order #: [id number] ciprofloxacin HCl (CIPRO) 250 mg tabletTake 1 tablet by mouth twice daily.Disp: 10 tabletRfl: 0 Prescriptions as of 03/28/2018 Sig: OMEPRAZOLE 20 MG CAPSULE,TAYE* TAKE 1 CAPSULE TWICE DAILY MELOXICAM 15 MG TABLET TAKE 1 TABLET BY MOUTH ONCE D* ATENOLOL 25 MG TABLET TAKE 1 TABLET BY MOUTH ONCE D* HYDROXYCHLOROQUINE 200 MG TAB* TAKE 1 TABLET BY MOUTH TWICE * DICYCLOMINE 10 MG CAPSULE Take 1 capsule by mouth three* LORAZEPAM 1 MG TABLET ACYCLOVIR 400 MG TABLET Take 1 tablet by mouth twice * DIVALPROEX 250 MG TABLET,TAYE* Take 500 mg by mouth twice da* DULOXETINE 60 MG CAPSULE,TAYE* Take 1 capsule by mouth twice* CIPROFLOXACIN 250 MG TABLET Take 1 tablet by mouth twice * Problem List As Of Date 03/28/2018 Noted Resolved MIGRAINE NOS W/O MENTN INTRACTABLE [G43.909] INVALID FOR* BIPOLAR - MOST RECENT EPISODE UNSPECIFIED [F31.*INVALID FOR* Open wound of knee, leg (except thigh), and ank*INVALID FOR*11/22/2012 Acute gastritis without mention of hemorrhage [*INVALID FOR*11/22/2012 DIAPHRAGMATIC HERNIA [K44.9] INVALID FOR* Lateral epicondylitis of elbow [M77.10] INVALID FOR*11/22/2012 ADJUSTMENT DISORDER WITH DEPRESSED MOOD [F43.21]INVALID FOR* Plantar fascial fibromatosis [M72.2] INVALID FOR*11/30/2016 Pain in limb [M79.609] INVALID FOR*03/21/2015 Female Stress Incontinence [N39.3] INVALID FOR*10/09/2009 Urge Incontinence [N39.41] INVALID FOR*10/09/2009 Other chronic cystitis [N30.20] INVALID FOR*06/04/2016 Irritable bowel syndrome [K58.9] INVALID FOR* Trochanteric bursitis of both hips [M70.61, M70*INVALID FOR* 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 Knee pain, bilateral [M25.561, M25.562] INVALID FOR*10/04/2017 Arthritis of knee, left [M17.12] INVALID FOR*10/04/2017 Herpes simplex labialis [B00.1] INVALID FOR*10/04/2017 Psoriasis with arthropathy (HCC) [L40.50] INVALID FOR* Benign essential tremor [G25.0] INVALID FOR* Tobacco use [Z72.0] INVALID FOR* SOB (shortness of breath) on exertion [R06.02] INVALID FOR* Chronic tension-type headache, not intractable *INVALID FOR* Nausea [R11.0] INVALID FOR*10/04/2017 Pyoderma (skin infection) [L08.0] INVALID FOR*10/04/2017 Gastroesophageal reflux disease with esophagiti*INVALID FOR* Muscle contraction headache [G44.209] INVALID FOR*10/04/2017 Upper back pain [M54.9] INVALID FOR* Vasomotor rhinitis [J30.0] INVALID FOR* Fibromyalgia [M79.7] INVALID FOR* Recurrent urinary tract infection [N39.0] INVALID FOR* Genital warts [A63.0] INVALID FOR*10/04/2017 History of hysterectomy [Z90.710] INVALID FOR*08/21/2016 Medication monitoring encounter [Z51.81] INVALID FOR*10/04/2017 Cutaneous lupus erythematosus [L93.2] INVALID FOR* KRISTINA I (cervical intraepithelial neoplasia I) [N*INVALID FOR* More... Other instructions from your clinician: Patient Education for Female Urinary Tract Infections Possible complications: Pyelonehritis Renal abscess Expected course/prognosis: * symptoms resolve within 2-3 days after starting treatment in almost all patients * one-fourth of women with simple UTI experience a second UTI within 6 months, and half at some time during lifetime. * patients with multiple recurrent UTI and no underlying urinary tract abnormality may receive long-term prophylactic antibioitic treatment. Trimethoprim-sulfamethoxazole and nitrofurantoin common used. * women with frequent or intercourse-related UTI should empty bladder immediately before and following intercourse and consider postcoital antibiotic treament Instructions: * Maintain good hydration * Avoid sexual intercourse when symptoms present *Take antibiotic as directed * Return if symptoms not resolved or markedly improved within 48 hours * Return if fever, chills, or flank pain develop * If taking prophylactic antiobiotics, take at bedtime * Take showers instead of tub baths * Avoid feminine hygiene sprays and scented douches * Wipe urethra from front to back Please call or return to the office if you are not feeling better in 5-7 days. You can try taking OTC Uristat (pyridium) if needed for burning. Beware that it will turn your urine orange/red. Prescriptions ordered this encounter Disp Refills Start End CIPROFLOXACIN 250 MG TABLET 10 t* 0 03/28/2018 Route: ORAL Sig: Take 1 tablet by mouth twice daily. Disposition: Return if symptoms worsen or fail to improve. Follow-up and Disposition History Recorded Encounter Status:Closed by AYANA CULP on 03/28/18 NURSING PROG Observed: 01/18/2018 Status: COMPLETED Source: [place] 11:15 AM [facility] REPOSITORY HNO ID: [id number] Author: Barbra Davila RN Service: (none) Author Type: Registered Nurse Type: Nursing Progress Note Filed: 01/18/2018 12:37 PM Note Text: Patient did not experience a fall prior to discharge. Patient did not experience a burn prior to discharge. Barbra Davila RN NURSING PROG Observed: 01/18/2018 Status: COMPLETED Source: LEE 11:10 AM [facility] REPOSITORY HNO ID: [id number] Author: Barbra Davila RN Service: (none) Author Type: Registered Nurse Type: Nursing Progress Note Filed: 01/18/2018 11:51 AM Note Text: Patient incontinent of large amount light brown soft stool. Assisted with cleanup and given disposable underwear for trip to her home. Patient to await phone call regarding reschedule. Barbra Davila RN NURSING PROG Observed: 01/18/2018 Status: COMPLETED Source: LEE 11:05 AM [facility] REPOSITORY HNO ID: [id number] Author: Barbra Davila RN Service: (none) Author Type: Registered Nurse Type: Nursing Progress Note Filed: 01/18/2018 11:47 AM Note Text: Patient admits to marijuana and cocaine use as of 01/17/18. Dr. Munoz to bedside to discuss treatment options with patient. Procedure to be rescheduled using MAC anesthesia. Barbra Davila RN NURSING PROG Observed: 01/18/2018 Status: COMPLETED Source: LEE 11:05 AM [facility] REPOSITORY HNO ID: [id number] Author: Barbra Davila RN Service: (none) Author Type: Registered Nurse Type: Nursing Progress Note Filed: 01/18/2018 12:42 PM Note Text: Patient states she used marijuana and cocaine 01/17/18. Dr. Munoz notified of same; to patient's bedside to discuss reschedule of procedure and treatment options. Barbra Davila RN PT ED Observed: 01/18/2018 Status: COMPLETED Source: LEE 10:43 AM [facility] REPOSITORY HNO ID: [id number] Author: Barbra Davila RN Service: (none) Author Type: Registered Nurse Type: Patient Education Filed: 01/18/2018 10:44 AM Note Text: Discharge Instructions were reviewed pre-operatively with the patient. All questions and concerns were addressed. Barbra Davila RN PRE OP LEARNING ASSESSMENT PROCEDURE/SURGERY: GI PROCEDURES: Colonoscopy and EGD READINESS TO LEARN COGNITIVE ABILITY: Alert and oriented MOTIVATION TO LEARN: Interested FAMILY SUPPORT: Unable to assess - Family not present PATIENT LEARNS BEST BY: Multiple Methods FACTORS AFFECTING LEARNING: None PHYSICAL LIMITATIONS AFFECTING LEARNING: None Electronically Signed By: Barbra Davila RN In Department: AMBULATORY SURGERY PROGRESS Observed: 01/14/2018 Status: COMPLETED Source: LEE 10:04 AM [facility] REPOSITORY O ID: [id number] Author: Nigel Munoz Service: (none) Author Type: Physician Type: Progress Notes Filed: 01/14/2018 10:08 AM Note Text: HISTORY AND PHYSICAL Jamshid Byrd 1960 REFERRING PHYSICIAN: Kyung Bates III, MD CHIEF COMPLAINT: colonoscopy consult HPI: The patient is a 57 year old female referred for endoscopy. Jamshid notes the following GI complaints: Jamshid notes abdominal pain. The pain occurs in the following locations: In the lower abdomen before and after bowel movements . Jamshid . Multiple loose stools per day, more so than diarrhea, but she notes approximately 6-7 bowel movements per day which are loose green and somewhat sticky. She denies blood in her stools. Jamshid denies constipation. Jamshid notes a change in bowel habits. Jamshid denies melena. Jamshid denies bright red blood per rectum. Jamshid denies hemorrhoids. The patient notes the following upper complaints: Jamshid notes heartburn if she does not take her proton pump inhibitor medication regularly. Jamshid denies dysphagia. Jamshid denies a history of ulcers/ peptic ulcer disease. Jamshid has undergone prior endoscopy. She had 2 adenomatous polyps removed in 2012. It was recommended she have follow-up colonoscopy in 3 years. The patient is being seen by me today at the request of Dr. Kyung Bates III MD for my opinion and advice regarding abdominal pain, change in bowel habits, history of adenomatous polyps and reflux. 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 - Diaphragmatic hernia without mention of obstruction or gangrene - Drug abuse and dependence (HCC) 10/24/2012 - Esophageal reflux - Esophagitis, unspecified - Gastroesophageal reflux disease with esophagitis 11/06/2015 - Genital warts - Herpes simplex labialis 06/12/2014 - Irritable bowel syndrome 09/05/2010 - Other forms of migraine - Systemic lupus erythematosus (HCC) 10/24/2012 - TMJ syndrome 10/24/2012 - Tubular adenoma of colon 12/29/12 - Unspecified drug or medicinal substance causing adverse effect in therapeutic use(E947.9) PAST SURGICAL HISTORY Procedure Laterality Date - COLONOSCOP W/ OR W/O BRSH SPEC 12/28/2012 Colonoscopy - EGD W/O BRSH SPECIMEN W/BX 01/03/07 - EGD W/O OR W/BRUSH/WASH 12/28/2012 EGD - EXCISION OF LINGUAL TONSIL - PAST SURGICAL HISTORY OF tubal ligation - PAST SURGICAL HISTORY OF 08/22/2009 mid urethral sling Current Outpatient Prescriptions: dicyclomine (BENTYL) 10 mg capsule Take 1 capsule by mouth three times daily. hydroxychloroquine (PLAQUENIL) 200 mg tablet TAKE 1 TABLET BY MOUTH TWICE DAILY. meloxicam (MOBIC) 15 mg tablet TAKE 1 TABLET BY MOUTH ONCE DAILY. TAKE WITH FOOD. atenolol (TENORMIN) 25 mg tablet TAKE 1 TABLET BY MOUTH ONCE DAILY. omeprazole (PRILOSEC) 20 mg capsule TAKE 1 CAPSULE TWICE DAILY LORazepam (ATIVAN) 1 mg tablet acyclovir (ZOVIRAX) 400 mg tablet Take 1 tablet by mouth twice daily. divalproex DR 250 mg EC tablet Take 500 mg by mouth twice daily. DULoxetine (CYMBALTA) 60 mg capsule Take 1 capsule by mouth twice daily. No current facility-administered medications for this visit. ALLERGIES: Macrodantin [Nitrofurantoin Macrocrystalline]; Bactrim [Sulfamethoxazole]; [facility] PERSONAL HISTORY: Social History Marital status: Spouse name: Years of education: 13 Number of children: 3 Social History Main Topics Smoking status: Current Every Day Smoker Packs/day: 0.50 Years: 34.00 Types: Cigarettes Smokeless status: Never Used Comment: < 1 ppk Alcohol use: Yes 1.5 - 12.0 oz/week 1 - 2 Cans of Beer (12oz) per week Comment: occ Drug use: Yes Comment: Occasional marijuana use, recovering:Jun 2012/alcohol, crack, gambling Sexual activity: Yes Partners with: Male control/protection: Tubal Ligation Comment: btl FAMILY HISTORY: FAMILY HISTORY Problem Relation Age of Onset - Breast Cancer Mother - Other [OTHER] Father not in contact with father - Cancer Paternal Grandmother throat - Cancer Paternal Aunt STOMACH - Breast Cancer Maternal Aunt - Psychiatry Brother schizophrenia - Diabetes Brother - Colon Cancer Brother thyroid and liver - lung cancer [OTHER] Brother - Psychiatry Brother explosive personality - None Brother - obesity [OTHER] Sister REVIEW OF SYMPTOMS: The review of systems data was entered by the nurse and reviewed by me There are no exam notes on file for this visit. PHYSICAL EXAMINATION: General: The patient is 57 year old female, well nourished, well hydrated in no acute distress. The patient is oriented to time, place, and person. VITALS: Blood pressure 114/64, pulse 64, height 158.8 cm (5' 2.5), weight 77.6 kg (171 lb), last menstrual period 09/08/2007. Body mass index is 30.78 kg/(m2). HEENT: Normal cephalic, ataumatic, pupils are equally round, sclera are anicteric, mucous membranes are moist, oropharynx is clear. Neck has no masses, asymmetry or lymphadenopathy. Thyroid is unremarkable. Respiratory: Clear to auscultation and percussion. Normal respiratory excursion and pattern. Cardiac: Examination is regular rate and rhythm. Abdominal exam: Soft, nontender, with no palpable masses. No hepatosplenomegaly. No palpable hernias. Rectal exam: exam deferred Extremities: no clubbing, cyanosis or edema. No adenopathy. Other: LABORATORY VALUES: As Noted RADIOLOGIC STUDIES: As Noted Assessment IMPRESSION: Change in bowel habits, diarrhea, crampy abdominal pain, reflux, history of colon polyps PLAN: I plan to perform upper and lower endoscopy. We discussed the risks and benefits of the planned endoscopy. I have informed the patient that complications can occur including failure to complete the endoscopy and perforation. The patient had the opportunity to ask questions concerning the planned endoscopy. My staff has also explained the procedure to the patient in understandable terms and has given the patient printed material concerning the procedure. The patient freely consents to surgery. I plan to use golytely bowel preparation for endoscopy Diagnoses: (R13.10) Dysphagia, unspecified type (primary encounter diagnosis) (K21.9) Gastroesophageal reflux disease, esophagitis presence not specified (Z86.010) Personal history of colonic polyps My findings have been communicated to Dr. Kyung Btaes III MD via shared medical record. This note will be forwarded to Dr. Kyung Bates III MD. Return to Clinic: The patient is instructed to follow-up with me after the testing has been completed. Nigel Munoz MD HOSP Observed: 01/14/2018 Status: COMPLETED Source: LEE 12:00 AM [facility] REPOSITORY Patient:Jamshid Byrd MRN: <[id number]> Height:5' 2.5(1.588 m) Weight:171 lb (77.565 kg) Outpatient Medications as of 01/18/18: dicyclomine (BENTYL) 10 mg capsule hydroxychloroquine (PLAQUENIL) 200 mg tablet meloxicam (MOBIC) 15 mg tablet atenolol (TENORMIN) 25 mg tablet omeprazole (PRILOSEC) 20 mg capsule LORazepam (ATIVAN) 1 mg tablet acyclovir (ZOVIRAX) [address] 250 mg EC tablet DULoxetine (CYMBALTA) 60 mg capsule Admission/Clinic Administered Medications as of 01/18/18: Patient has no admission medications. Problem List: Migraine, unspecified, without mention of intractable migraine without mention of status migrainosus [G43.909] Bipolar I disorder, most recent episode (or current) unspecified [F31.9] Diaphragmatic hernia without mention of obstruction or gangrene [K44.9] Adjustment disorder with depressed mood [F43.21] Irritable bowel syndrome [K58.9] Trochanteric bursitis of both hips [M70.61, M70.62] Drug abuse and dependence (HCC) [F19.20] Tubular adenoma of colon [D12.6] Lateral epicondylitis of elbow [M77.10] Cervical high risk HPV (human papillomavirus) test positive [R87.810] Psoriasis with arthropathy (HCC) [L40.50] Benign essential tremor [G25.0] Tobacco use [Z72.0] SOB (shortness of breath) on exertion [R06.02] Chronic tension-type headache, not intractable [G44.229] Gastroesophageal reflux disease with esophagitis [K21.0] Upper back pain [M54.9] Vasomotor rhinitis [J30.0] Fibromyalgia [M79.7] Recurrent urinary tract infection [N39.0] Cutaneous lupus erythematosus [L93.2] KRISTINA I (cervical intraepithelial neoplasia I) [N87.0] Allergies: Macrodantin [Nitrofurantoin Macrocrystalline] Bactrim [Sulfamethoxazole] [facility] Date Verified: 01/14/18 Lab Values No results within the last 30 days for the following basenames: K,HCT Progress Notes ([facility]): Vazquez Pritchett Surg Coord 01/14/2018 2:58 PM Signed 01-18-2018 Colon/EGD [facility] Vazquez Pritchett Surg Coord Progress Notes ([facility]): Nigel Munoz MD 01/14/2018 10:08 AM Signed HISTORY AND PHYSICAL Jamshid Gonzalez Tony 1960 REFERRING PHYSICIAN: Kyung Bates III, MD CHIEF COMPLAINT: colonoscopy consult HPI: The patient is a 57 year old female referred for endoscopy. Jamshid notes the following GI complaints: Jamshid notes abdominal pain. The pain occurs in the following locations: In the lower abdomen before and after bowel movements . Jamshid . Multiple loose stools per day, more so than diarrhea, but she notes approximately 6-7 bowel movements per day which are loose green and somewhat sticky. She denies blood in her stools. Jamshid denies constipation. Jamshid notes a change in bowel habits. Jamshid denies melena. Jamshid denies bright red blood per rectum. Jamshid denies hemorrhoids. The patient notes the following upper complaints: Jamshid notes heartburn if she does not take her proton pump inhibitor medication regularly. Jamshid denies dysphagia. Jamshid denies a history of ulcers/ peptic ulcer disease. Jamshid has undergone prior endoscopy. She had 2 adenomatous polyps removed in 2012. It was recommended she have follow-up colonoscopy in 3 years. The patient is being seen by me today at the request of Dr. Kyung Bates, III MD for my opinion and advice regarding abdominal pain, change in bowel habits, history of adenomatous polyps and reflux. 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 - Diaphragmatic hernia without mention of obstruction or gangrene - Drug abuse and dependence (HCC) 10/24/2012 - Esophageal reflux - Esophagitis, unspecified - Gastroesophageal reflux disease with esophagitis 11/06/2015 - Genital warts - Herpes simplex labialis 06/12/2014 - Irritable bowel syndrome 09/05/2010 - Other forms of migraine - Systemic lupus erythematosus (HCC) 10/24/2012 - TMJ syndrome 10/24/2012 - Tubular adenoma of colon 12/29/12 - Unspecified drug or medicinal substance causing adverse effect in therapeutic use(E947.9) PAST SURGICAL HISTORY Procedure Laterality Date - COLONOSCOP W/ OR W/O BRSH SPEC 12/28/2012 Colonoscopy - EGD W/O BRSH SPECIMEN W/BX 01/03/07 - EGD W/O OR W/BRUSH/WASH 12/28/2012 EGD - EXCISION OF LINGUAL TONSIL - PAST SURGICAL HISTORY OF tubal ligation - PAST SURGICAL HISTORY OF 08/22/2009 mid urethral sling Current Outpatient Prescriptions: dicyclomine (BENTYL) 10 mg capsule Take 1 capsule by mouth three times daily. hydroxychloroquine (PLAQUENIL) 200 mg tablet TAKE 1 TABLET BY MOUTH TWICE DAILY. meloxicam (MOBIC) 15 mg tablet TAKE 1 TABLET BY MOUTH ONCE DAILY. TAKE WITH FOOD. atenolol (TENORMIN) 25 mg tablet TAKE 1 TABLET BY MOUTH ONCE DAILY. omeprazole (PRILOSEC) 20 mg capsule TAKE 1 CAPSULE TWICE DAILY LORazepam (ATIVAN) 1 mg tablet acyclovir (ZOVIRAX) 400 mg tablet Take 1 tablet by mouth twice daily. divalproex DR 250 mg EC tablet Take 500 mg by mouth twice daily. DULoxetine (CYMBALTA) 60 mg capsule Take 1 capsule by mouth twice daily. No current facility-administered medications for this visit. ALLERGIES: Macrodantin [Nitrofurantoin Macrocrystalline]; Bactrim [Sulfamethoxazole]; [facility] PERSONAL HISTORY: Social History Marital status: Spouse name: Years of education: 13 Number of children: 3 Social History Main Topics Smoking status: Current Every Day Smoker Packs/day: 0.50 Years: 34.00 Types: Cigarettes Smokeless status: Never Used Comment: < 1 ppk Alcohol use: Yes 1.5 - 12.0 oz/week 1 - 2 Cans of Beer (12oz) per week Comment: occ Drug use: Yes Comment: Occasional marijuana use, recovering:Jun 2012/alcohol, crack, gambling Sexual activity: Yes Partners with: Male control/protection: Tubal Ligation Comment: btl FAMILY HISTORY: FAMILY HISTORY Problem Relation Age of Onset - Breast Cancer Mother - Other [OTHER] Father not in contact with father - Cancer Paternal Grandmother throat - Cancer Paternal Aunt STOMACH - Breast Cancer Maternal Aunt - Psychiatry Brother schizophrenia - Diabetes Brother - Colon Cancer Brother thyroid and liver - lung cancer [OTHER] Brother - Psychiatry Brother explosive personality - None Brother - obesity [OTHER] Sister REVIEW OF SYMPTOMS: The review of systems data was entered by the nurse and reviewed by me There are no exam notes on file for this visit. PHYSICAL EXAMINATION: General: The patient is 57 year old female, well nourished, well hydrated in no acute distress. The patient is oriented to time, place, and person. VITALS: Blood pressure 114/64, pulse 64, height 158.8 cm (5' 2.5), weight 77.6 kg (171 lb), last menstrual period 09/08/2007. Body mass index is 30.78 kg/(m2). HEENT: Normal cephalic, ataumatic, pupils are equally round, sclera are anicteric, mucous membranes are moist, oropharynx is clear. Neck has no masses, asymmetry or lymphadenopathy. Thyroid is unremarkable. Respiratory: Clear to auscultation and percussion. Normal respiratory excursion and pattern. Cardiac: Examination is regular rate and rhythm. Abdominal exam: Soft, nontender, with no palpable masses. No hepatosplenomegaly. No palpable hernias. Rectal exam: exam deferred Extremities: no clubbing, cyanosis or edema. No adenopathy. Other: LABORATORY VALUES: As Noted RADIOLOGIC STUDIES: As Noted Assessment IMPRESSION: Change in bowel habits, diarrhea, crampy abdominal pain, reflux, history of colon polyps PLAN: I plan to perform upper and lower endoscopy. We discussed the risks and benefits of the planned endoscopy. I have informed the patient that complications can occur including failure to complete the endoscopy and perforation. The patient had the opportunity to ask questions concerning the planned endoscopy. My staff has also explained the procedure to the patient in understandable terms and has given the patient printed material concerning the procedure. The patient freely consents to surgery. I plan to use golytely bowel preparation for endoscopy Diagnoses: (R13.10) Dysphagia, unspecified type (primary encounter diagnosis) (K21.9) Gastroesophageal reflux disease, esophagitis presence not specified (Z86.010) Personal history of colonic polyps My findings have been communicated to Dr. Kyung Bates III MD via shared medical record. This note will be forwarded to Dr. Kyung Bates III MD. Return to Clinic: The patient is instructed to follow-up with me after the testing has been completed. MD Nigel Glover MD 01/14/2018 10:07 AM Signed The following instructions are important for you related to your office visit today with the [facility]. INSTRUCTIONS FOR YOUR COLONOSCOPY You were given handouts with instructions for your bowel preparation. It is important that should follow these instructions closely. If you do not feel you are becoming adequately clean after your bowel preparation, contact our office. Make sure to drink plenty of clear liquids with your bowel cleansing. This well help to better clean your colon and prevent dehydration. Do not eat or drink liquids after midnight. Do not eat or drink red liquids as this may interfere with the procedure. You will be given sedation for your procedure. Please make sure to have a ride home from the endoscopy suite. You should not plan to drive or return to work the day of your procedure. If you are of childbearing age, we will need to do a urine test the morning of your procedure before you have conscious sedation. So please do not void the morning of your procedure prior to arrival. If you have any difficulties or concerns, you should contact our office immediately. If you note any additional difficulties, questions, or concerns, you should contact our office immediately @ [phone] and ask to be transferred to the General Surgery department. MOSHE Observed: 01/13/2018 Status: COMPLETED Source: LEE 3:40 PM [facility] REPOSITORY Office Visit (GENSWS) JAMSHID BYRD ([id number]) 1960 F Date Time Provider Department 01/13/18 3:40 PM NIGEL MUNOZ During your visit today, we recorded the following information about you: Pulse Blood pressure Weight Height 64/minute 114/64 77.6 kg 1.588 m Nigel Munoz MD 01/14/2018 10:08 AM Signed HISTORY AND PHYSICAL Jamshid Gonzalez Tony 1960 REFERRING PHYSICIAN: Kyung Bates III, MD CHIEF COMPLAINT: colonoscopy consult HPI: The patient is a 57 year old female referred for endoscopy. Jamshid notes the following GI complaints: Jamshid notes abdominal pain. The pain occurs in the following locations: In the lower abdomen before and after bowel movements . Jamshid . Multiple loose stools per day, more so than diarrhea, but she notes approximately 6-7 bowel movements per day which are loose green and somewhat sticky. She denies blood in her stools. Jamshid denies constipation. Jamshid notes a change in bowel habits. Jamshid denies melena. Jamshid denies bright red blood per rectum. Jamshid denies hemorrhoids. The patient notes the following upper complaints: Jamshid notes heartburn if she does not take her proton pump inhibitor medication regularly. Jamshid denies dysphagia. Jamshid denies a history of ulcers/ peptic ulcer disease. Jamshid has undergone prior endoscopy. She had 2 adenomatous polyps removed in 2012. It was recommended she have follow-up colonoscopy in 3 years. The patient is being seen by me today at the request of Dr. Kyung Bates III MD for my opinion and advice regarding abdominal pain, change in bowel habits, history of adenomatous polyps and reflux. 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 - Diaphragmatic hernia without mention of obstruction or gangrene - Drug abuse and dependence (HCC) 10/24/2012 - Esophageal reflux - Esophagitis, unspecified - Gastroesophageal reflux disease with esophagitis 11/06/2015 - Genital warts - Herpes simplex labialis 06/12/2014 - Irritable bowel syndrome 09/05/2010 - Other forms of migraine - Systemic lupus erythematosus (HCC) 10/24/2012 - TMJ syndrome 10/24/2012 - Tubular adenoma of colon 12/29/12 - Unspecified drug or medicinal substance causing adverse effect in therapeutic use(E947.9) PAST SURGICAL HISTORY Procedure Laterality Date - COLONOSCOP W/ OR W/O BRSH SPEC 12/28/2012 Colonoscopy - EGD W/O BRSH SPECIMEN W/BX 01/03/07 - EGD W/O OR W/BRUSH/WASH 12/28/2012 EGD - EXCISION OF LINGUAL TONSIL - PAST SURGICAL HISTORY OF tubal ligation - PAST SURGICAL HISTORY OF 08/22/2009 mid urethral sling Current Outpatient Prescriptions: dicyclomine (BENTYL) 10 mg capsule Take 1 capsule by mouth three times daily. hydroxychloroquine (PLAQUENIL) 200 mg tablet TAKE 1 TABLET BY MOUTH TWICE DAILY. meloxicam (MOBIC) 15 mg tablet TAKE 1 TABLET BY MOUTH ONCE DAILY. TAKE WITH FOOD. atenolol (TENORMIN) 25 mg tablet TAKE 1 TABLET BY MOUTH ONCE DAILY. omeprazole (PRILOSEC) 20 mg capsule TAKE 1 CAPSULE TWICE DAILY LORazepam (ATIVAN) 1 mg tablet acyclovir (ZOVIRAX) 400 mg tablet Take 1 tablet by mouth twice daily. divalproex DR 250 mg EC tablet Take 500 mg by mouth twice daily. DULoxetine (CYMBALTA) 60 mg capsule Take 1 capsule by mouth twice daily. No current facility-administered medications for this visit. ALLERGIES: Macrodantin [Nitrofurantoin Macrocrystalline]; Bactrim [Sulfamethoxazole]; [facility] PERSONAL HISTORY: Social History Marital status: Spouse name: Years of education: 13 Number of children: 3 Social History Main Topics Smoking status: Current Every Day Smoker Packs/day: 0.50 Years: 34.00 Types: Cigarettes Smokeless status: Never Used Comment: ANDlt; 1 ppk Alcohol use: Yes 1.5 - 12.0 oz/week 1 - 2 Cans of Beer (12oz) per week Comment: occ Drug use: Yes Comment: Occasional marijuana use, recovering:Jun 2012/alcohol, crack, gambling Sexual activity: Yes Partners with: Male control/protection: Tubal Ligation Comment: btl FAMILY HISTORY: FAMILY HISTORY Problem Relation Age of Onset - Breast Cancer Mother - Other [OTHER] Father not in contact with father - Cancer Paternal Grandmother throat - Cancer Paternal Aunt STOMACH - Breast Cancer Maternal Aunt - Psychiatry Brother schizophrenia - Diabetes Brother - Colon Cancer Brother thyroid and liver - lung cancer [OTHER] Brother - Psychiatry Brother explosive personality - None Brother - obesity [OTHER] Sister REVIEW OF SYMPTOMS: The review of systems data was entered by the nurse and reviewed by me There are no exam notes on file for this visit. PHYSICAL EXAMINATION: General: The patient is 57 year old female, well nourished, well hydrated in no acute distress. The patient is oriented to time, place, and person. VITALS: Blood pressure 114/64, pulse 64, height 158.8 cm (5' 2.5ANDquot;), weight 77.6 kg (171 lb), last menstrual period 09/08/2007. Body mass index is 30.78 kg/(m2). HEENT: Normal cephalic, ataumatic, pupils are equally round, sclera are anicteric, mucous membranes are moist, oropharynx is clear. Neck has no masses, asymmetry or lymphadenopathy. Thyroid is unremarkable. Respiratory: Clear to auscultation and percussion. Normal respiratory excursion and pattern. Cardiac: Examination is regular rate and rhythm. Abdominal exam: Soft, nontender, with no palpable masses. No hepatosplenomegaly. No palpable hernias. Rectal exam: exam deferred Extremities: no clubbing, cyanosis or edema. No adenopathy. Other: LABORATORY VALUES: As Noted RADIOLOGIC STUDIES: As Noted Assessment IMPRESSION: Change in bowel habits, diarrhea, crampy abdominal pain, reflux, history of colon polyps PLAN: I plan to perform upper and lower endoscopy. We discussed the risks and benefits of the planned endoscopy. I have informed the patient that complications can occur including failure to complete the endoscopy and perforation. The patient had the opportunity to ask questions concerning the planned endoscopy. My staff has also explained the procedure to the patient in understandable terms and has given the patient printed material concerning the procedure. The patient freely consents to surgery. I plan to use golytely bowel preparation for endoscopy Diagnoses: (R13.10) Dysphagia, unspecified type (primary encounter diagnosis) (K21.9) Gastroesophageal reflux disease, esophagitis presence not specified (Z86.010) Personal history of colonic polyps My findings have been communicated to Dr. Kyung Bates III MD via shared medical record. This note will be forwarded to Dr. Kyung Bates III MD. Return to Clinic: The patient is instructed to follow-up with me after the testing has been completed. MD Nigel Glover MD 01/14/2018 10:07 AM Signed The following instructions are important for you related to your office visit today with the [facility]. INSTRUCTIONS FOR YOUR COLONOSCOPY You were given handouts with instructions for your bowel preparation. It is important that should follow these instructions closely. If you do not feel you are becoming adequately clean after your bowel preparation, contact our office. Make sure to drink plenty of clear liquids with your bowel cleansing. This well help to better clean your colon and prevent dehydration. Do not eat or drink liquids after midnight. Do not eat or drink red liquids as this may interfere with the procedure. You will be given sedation for your procedure. Please make sure to have a ride home from the endoscopy suite. You should not plan to drive or return to work the day of your procedure. If you are of childbearing age, we will need to do a urine test the morning of your procedure before you have conscious sedation. So please do not void the morning of your procedure prior to arrival. If you have any difficulties or concerns, you should contact our office immediately. If you note any additional difficulties, questions, or concerns, you should contact our office immediately @ [phone] and ask to be transferred to the General Surgery department. Referring Provider: KYUNG BATES III [[id number]] Allergies As of Date: 01/13/2018 Noted Allergy Reaction MACRODANTIN (NITROFURANTOIN MACRO*02/10/2010 10 - Anaphylaxis BACTRIM (SULFAMETHOXAZOLE) 09/25/2014 14 - Other: See Comments Comments: mouth sores--Paredes Dillon reaction LITHIUM 02/08/2012 2 - Rash Date Reviewed: 01/13/2018 Reviewed by: Rachel De León Ma - Fully Assessed Reason for Visit: colonoscopy consult [Other] Primary Visit Diagnosis:Dysphagia, unspecified type [R13.10] Other Visit Diagnoses:Gastroesophageal reflux disease, esophagitis presence not specified [K21.9] Personal history of colonic polyps [Z86.010] Order(s):THANG PT ED DIGESTIVE DISEASES [[id number]] Order #: [id number]. #:[id number]: 1 [] peg 3350-Electrolytes (GOLYTELY) 236-22.74-6.74 -5.86 gram suspensionTake 4,000 mL by mouth one time only for 1 dose. Refer to printed prep instructions from your doctor.Disp: 1 BottleRfl: 0 EGD [[id number]] Order #: [id number] FUTURE COLONOSCOPY, SCREENING, HIGH RISK [[id number]] Order #: [id number] FUTURE Prescriptions as of 01/13/2018 Sig: DICYCLOMINE 10 MG CAPSULE Take 1 capsule by mouth three* HYDROXYCHLOROQUINE 200 MG TAB* TAKE 1 TABLET BY MOUTH TWICE * MELOXICAM 15 MG TABLET TAKE 1 TABLET BY MOUTH ONCE D* ATENOLOL 25 MG TABLET TAKE 1 TABLET BY MOUTH ONCE D* OMEPRAZOLE 20 MG CAPSULE,TAYE* TAKE 1 CAPSULE TWICE DAILY LORAZEPAM 1 MG TABLET ACYCLOVIR 400 MG TABLET Take 1 tablet by mouth twice * DIVALPROEX 250 MG TABLET,TAYE* Take 500 mg by mouth twice da* DULOXETINE 60 MG CAPSULE,TAYE* Take 1 capsule by mouth twice* PEG 3350-ELECTROLYTES 236 GRA* Take 4,000 mL by mouth one ti* Problem List As Of Date 01/13/2018 Noted Resolved MIGRAINE NOS W/O MENTN INTRACTABLE [G43.909] INVALID FOR* BIPOLAR - MOST RECENT EPISODE UNSPECIFIED [F31.*INVALID FOR* Open wound of knee, leg (except thigh), and ank*INVALID FOR*11/22/2012 Acute gastritis without mention of hemorrhage [*INVALID FOR*11/22/2012 DIAPHRAGMATIC HERNIA [K44.9] INVALID FOR* Lateral epicondylitis of elbow [M77.10] INVALID FOR*11/22/2012 ADJUSTMENT DISORDER WITH DEPRESSED MOOD [F43.21]INVALID FOR* Plantar fascial fibromatosis [M72.2] INVALID FOR*11/30/2016 Pain in limb [M79.609] INVALID FOR*03/21/2015 Female Stress Incontinence [N39.3] INVALID FOR*10/09/2009 Urge Incontinence [N39.41] INVALID FOR*10/09/2009 Other chronic cystitis [N30.20] INVALID FOR*06/04/2016 Irritable bowel syndrome [K58.9] INVALID FOR* Trochanteric bursitis of both hips [M70.61, M70*INVALID FOR* 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 Knee pain, bilateral [M25.561, M25.562] INVALID FOR*10/04/2017 Arthritis of knee, left [M17.12] INVALID FOR*10/04/2017 Herpes simplex labialis [B00.1] INVALID FOR*10/04/2017 Psoriasis with arthropathy (HCC) [L40.50] INVALID FOR* Benign essential tremor [G25.0] INVALID FOR* Tobacco use [Z72.0] INVALID FOR* SOB (shortness of breath) on exertion [R06.02] INVALID FOR* Chronic tension-type headache, not intractable *INVALID FOR* Nausea [R11.0] INVALID FOR*10/04/2017 Pyoderma (skin infection) [L08.0] INVALID FOR*10/04/2017 Gastroesophageal reflux disease with esophagiti*INVALID FOR* Muscle contraction headache [G44.209] INVALID FOR*10/04/2017 Upper back pain [M54.9] INVALID FOR* Vasomotor rhinitis [J30.0] INVALID FOR* Fibromyalgia [M79.7] INVALID FOR* Recurrent urinary tract infection [N39.0] INVALID FOR* Genital warts [A63.0] INVALID FOR*10/04/2017 History of hysterectomy [Z98.890, Z90.710] INVALID FOR*08/21/2016 Medication monitoring encounter [Z51.81] INVALID FOR*10/04/2017 Cutaneous lupus erythematosus [L93.2] INVALID FOR* KRISTINA I (cervical intraepithelial neoplasia I) [N*INVALID FOR* More... Other instructions from your clinician: The following instructions are important for you related to your office visit today with the [facility] Surgeons. INSTRUCTIONS FOR YOUR COLONOSCOPY You were given handouts with instructions for your bowel preparation. It is important that should follow these instructions closely. If you do not feel you are becoming adequately clean after your bowel preparation, contact our office. Make sure to drink plenty of clear liquids with your bowel cleansing. This well help to better clean your colon and prevent dehydration. Do not eat or drink liquids after midnight. Do not eat or drink red liquids as this may interfere with the procedure. You will be given sedation for your procedure. Please make sure to have a ride home from the endoscopy suite. You should not plan to drive or return to work the day of your procedure. If you are of childbearing age, we will need to do a urine test the morning of your procedure before you have conscious sedation. So please do not void the morning of your procedure prior to arrival. If you have any difficulties or concerns, you should contact our office immediately. If you note any additional difficulties, questions, or concerns, you should contact our office immediately @ [phone] and ask to be transferred to the General Surgery department. Prescriptions ordered this encounter Disp Refills Start End PEG 3350-ELECTROLYTES 236 GRAM-22.74* 1 Foster* 0 01/13/2018 01/13/2018 Route: ORAL Sig: Take 4,000 mL by mouth one time only for 1 dose. Refer to printed prep instructions from your doctor. Follow-up and Disposition History Recorded Encounter Status:Closed by NIGEL MUNOZ MD on 01/14/18 PROGRESS Observed: 01/03/2018 Status: COMPLETED Source: LEE 5:11 PM [facility] REPOSITORY HNO ID: [id number] Author: Kyung Bates III Service: (none) Author Type: Physician Type: Progress Notes Filed: 01/03/2018 7:51 PM Note Text: SUBJECTIVE: This is a 57 year old female that is here today for 1. pain in neck and lower back since recent fall 2. IBS: variable BM from liquid to constipation. 4 BMs/day. 3. Review of colonoscopy report from 2012 shows the patient had tubular adenoma. Patient states that she was not notified that she needed a colonoscopy every 3 years. She is now 2 years overdue. She has not had any rectal bleeding. 4. Unfortunately her brother (who is one year younger than she is at age 55) has been diagnosed with stage III colon cancer recently. He also has been diagnosed with stage IV lung cancer which possibly has been resistant to treatment. [facility] Patient Name: Jamshid Silva Procedure Date: 12/27/2012 3:41 PM Date of : 1960 Admit Type: Ambulatory Age: 52 Gender: Female Note Status: Finalized Procedure: ? Colonoscopy Indications: ? Screening for colorectal malignant neoplasm Providers: ? Elvin Flores MD Referring Physician: Kyung Bates III, MD Medicines: ? Fentanyl 100 micrograms IV, Midazolam 6 mg IV Complications: ? ? ? No immediate complications. Requesting Provider: Procedure: ? After I obtained informed consent, the scope was passed ? under direct vision. Throughout the procedure, the ? patient's blood pressure, pulse, and oxygen saturations ? were monitored continuously. The Colonoscope was ? introduced through the anus and advanced to the cecum, ? identified by appendiceal orifice AND ileocecal valve. The ? colonoscopy was performed without difficulty. The ? patient tolerated the procedure well. The quality of the ? bowel preparation was good. Findings: ?? ? A sessile polyp was found at the splenic flexure. The polyp was 5 mm in ?? ? size. The polyp was removed with a cold biopsy forceps. Resection and ?? ? retrieval were complete. A pedunculated polyp was found in the rectum. ?? ? The polyp was 10 mm in size. The polyp was removed with a hot snare. ?? ? Resection and retrieval were complete. Impression: ?- One 5 mm polyp at the splenic flexure. Resected and ? retrieved. ? - One 10 mm polyp in the rectum. Resected and retrieved. Recommendation: ? ? ?- Discharge patient to home (ambulatory). ? - Continue present medications. ? - Await pathology results. ? - Return to primary care physician PRN. ? - Return to physician service center assistant in 1 month. ? - Telephone GI clinic for pathology results in 1 week. MD Elvin Kemp MD 12/27/2012 4:24 PM This report has been signed electronically. Number of Addenda: 0 Note Initiated On: 12/27/2012 3:41 PM Result Date - 12/30/2012 Results Specimen #: [id number] Submitting Physician: ELVIN FLORES MD FINAL DIAGNOSIS 1. Antrum, biopsy (A) - Reactive gastropathy. - No evidence of H. pylori. 2. Stomach flexure, biopsy (B) - Tubular adenoma. - Separate fragment of colonic mucosa with melanosis coli.. 3. Rectum, polypectomy (C) - Tubular adenoma. ANUEL/joseph 12/29/2012 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 - Diaphragmatic hernia without mention of obstruction or gangrene - Drug abuse and dependence (HCC) 10/24/2012 - Esophageal reflux - Esophagitis, unspecified - Gastroesophageal reflux disease with esophagitis 11/06/2015 - Genital warts - Herpes simplex labialis 06/12/2014 - Irritable bowel syndrome 09/05/2010 - Other forms of migraine - Systemic lupus erythematosus (HCC) 10/24/2012 - TMJ syndrome 10/24/2012 - Tubular adenoma of colon 12/29/12 - Unspecified drug or medicinal substance causing adverse effect in therapeutic use(E947.9) Current Outpatient Prescriptions on File Prior to Visit: hydroxychloroquine (PLAQUENIL) 200 mg tablet TAKE 1 TABLET BY MOUTH TWICE DAILY. meloxicam (MOBIC) 15 mg tablet TAKE 1 TABLET BY MOUTH ONCE DAILY. TAKE WITH FOOD. atenolol (TENORMIN) 25 mg tablet TAKE 1 TABLET BY MOUTH ONCE DAILY. omeprazole (PRILOSEC) 20 mg capsule TAKE 1 CAPSULE TWICE DAILY LORazepam (ATIVAN) 1 mg tablet acyclovir (ZOVIRAX) 400 mg tablet Take 1 tablet by mouth twice daily. divalproex DR 250 mg EC tablet Take 500 mg by mouth twice daily. DULoxetine (CYMBALTA) 60 mg capsule Take 1 capsule by mouth twice daily. No current facility-administered medications on file prior to visit. FAMILY HISTORY Problem Relation Age of Onset - Breast Cancer Mother - Other [OTHER] Father not in contact with father - Cancer Paternal Grandmother throat - Cancer Paternal Aunt STOMACH - Breast Cancer Maternal Aunt - Psychiatry Brother schizophrenia - Diabetes Brother - Colon Cancer Brother thyroid and liver - Psychiatry Brother explosive personality - None Brother - obesity [OTHER] Sister Social History Substance Use Topics - Smoking status: Current Every Day Smoker Packs/day: 0.50 Years: 34.00 Types: Cigarettes - Smokeless tobacco: Never Used Comment: < 1 ppk - Alcohol use 1.5 - 12.0 oz/week 1 - 2 Cans of Beer (12oz) per week Comment: occ BP 139/79 Pulse (!) 54 Resp 16 Wt 76.2 kg (168 lb) LMP 09/08/2007 BMI 30.24 kg/m2 . OBJECTIVE: APPEARANCE Well appearing, alert, in no acute distress, well-hydrated, well nourished. NECK Supple, no adenopathy; thyroid symmetric, normal size, no bruits HEART RRR with normal S1 and S2, no murmurs, no gallops, no JVD appreciated LUNG clear to auscultation ABDOMEN Soft with mild tenderness in the left lower quadrant and right lower quadrant without rigidity, rebound, mass BACK: Tenderness over the sacrum and coccyx but no paravertebral LS muscle tenderness or spasm. Straight leg raising negative bilaterally NEURO Awake, alert and oriented x 3, Normal gait and No involuntary motions. ASSESSMENT: Irritable bowel syndrome History of tubular adenoma of the colon (2012) Acute lumbar strain and contusion of the coccyx from recent fall History of bipolar disorder PLAN: surgery referral for colonoscopy dicyclomine 10mg three times/day for irritable bowel syndrome careful activity and careful lifting tylenol 1000 mg three times/day as needed for pain follow up with psychiatrist and disability physician same other medications labs as ordered Flu shot given Kyung Bates III MD PROGRESS Observed: 01/03/2018 Status: COMPLETED Source: LEE 5:00 PM [facility] REPOSITORY HNO ID: [id number] Author: Jaleesa ([facility]) EMILY Keen Service: (none) Author Type: Continuous Improvement Intern Type: Progress Notes Filed: 01/03/2018 7:51 PM Note Text: 57 year old female here for INACTIVATED INFLUENZA VACCINE. [id number] Season Patient is identified by name and date of : Yes [] CONTRAINDICATIONS color enhanced section Age less than 6 months? No Allergy to eggs, chicken, chicken feathers, or chicken dander? No Allergy to thimerosal (a preservative) or formaldehyde? No History of severe reaction to any vaccine component or a previous dose of influenza vaccination? No History of Guillain-Orange Syndrome within 6 weeks after a previous influenza vaccine? No Current moderate or severe illness? No Current temperature greater or equal to 100.4F? No History of Bone Marrow Transplant in past 6 months or solid organ transplant in the past 3 months ? No [] VERIFICATION color enhanced section Was the answer Yes for any of the above contraindications? No contraindications present. Acceptable to proceed with vaccine. Patient/guardian agrees the above answers are true to the best of their knowledge? Yes Flu vaccine information sheet given? Yes See immunization activity in [facility] for details of immunizations adminstered today. Patient age: [age] year old For The [id number] Flu Season 6-35 months old: Fluzone 0.25 ml - IM (Preservative Free) 3 years of age: Fluzone 0.5 ml - IM (Preservative Free) 3 years and older: Fluzone 0.5 ml- IM-(with Preservatives) 65+ years old: Fluzone High-Dose 0.5 ml - IM (Preservative Free) REMEMBER: If patient is less than 9 years of age and this is the first vaccine of Influenza to be received in any flu season, they should receive a second dose in one months time. XR SPINE CERVICAL Observed: 12/30/2017 Status: F Source: [facility]'m[facility] MINIMUM 4 VIEWS 11:14 AM [facility] REPOSITORY ORIGINAL XR SPINE CERVICAL WITH OBLIQUES 5 VIEWS CLINICAL STATEMENT: NECK PAIN COMPARISON: None FINDINGS: Cervical alignment is normal. There is mild disc space narrowing at C5-C6 and C6-C7 with anterior and posterior spondylosis. There is questionable LEFT C5-C6 foraminal stenosis. Multilevel mod erate facet arthropathy. Normal atlantoaxial relationship and prevertebral soft tissue space. IMPRESSION: Degenerative changes. Interpreted By: Jaspal Smith MD Preliminary Report By: Jaspal Smith MD Electronically Signed By: Jaspal Smith MD Dictated Date: 12/30/2017 11:47:59 AM Prelim Date: 12/30/2017 11:47:59 AM Sign Date: 12/30/2017 11:49:21 AM XR HIP MINIMUM 2 Observed: 12/30/2017 Status: F Source: [facility] VIEWS LEFT 11:13 AM [facility] ORIG[facility]AL XR HIP MINIMUM 2 VIEWS LEFT CLINICAL STATEMENT: LT HIP PAIN COMPARISON: None FINDINGS:2 images of the left hip reveal no fracture or dislocation. Soft tissue structures are unremarkable. IMPRESSION:Normal exam Interpreted By: Yumi Avila MD Preliminary Report By: Yumi Avila MD Electronically Signed By: Yumi Avila MD Dictated Date: 12/30/2017 11:25:59 AM Prelim Date: 12/30/2017 11:25:59 AM Sign Date: 12/30/2017 11:26:19 AM OBSOLETE Observed: 12/02/2017 Status: COMPLETED Source: LEE 12:00 AM [facility] REPOSITORY Refill (FAMPWS) JAMSHID BYRD ([id number]) 1960 F Date Time Provider Department 12/02/17 KYUNG BATES III During your visit today, we recorded the following information about you: Kyung Bates III MD 12/02/2017 6:10 PM Signed Staff please remind patient that lab orders have been entered. Patient needs labs to monitor ongoing prescription of her medications. She needs to keep the upcoming appointment. Kyung Bates III, MD, FAAFP Jaleesa Keen CMA, [place] 12/02/2017 6:30 PM Signed Patient notified via My Chart message. Jaleesa Keen CMA Allergies As of Date: 12/02/2017 Noted Allergy Reaction MACRODANTIN (NITROFURANTOIN MACRO*02/10/2010 10 - Anaphylaxis BACTRIM (SULFAMETHOXAZOLE) 09/25/2014 14 - Other: See Comments Comments: mouth sores--Paredes Dillon reaction LITHIUM 02/08/2012 2 - Rash Date Reviewed: 11/16/2017 Reviewed by: Jersey Brownlee - Fully Assessed Reason for Visit: Refill Request [94] Order(s):hydroxychloroquine (PLAQUENIL) 200 mg tabletTAKE 1 TABLET BY MOUTH TWICE DAILY.Disp: 56 tabletRfl: 2 meloxicam (MOBIC) 15 mg tabletTAKE 1 TABLET BY MOUTH ONCE DAILY. TAKE WITH FOOD.Disp: 28 tabletRfl: 2 atenolol (TENORMIN) 25 mg tabletTAKE 1 TABLET BY MOUTH ONCE DAILY.Disp: 28 tabletRfl: 2 omeprazole (PRILOSEC) 20 mg capsuleTAKE 1 CAPSULE TWICE DAILYDisp: 56 capsuleRfl: 2 Prescriptions as of 12/02/2017 Sig: HYDROXYCHLOROQUINE 200 MG TAB* TAKE 1 TABLET BY MOUTH TWICE * MELOXICAM 15 MG TABLET TAKE 1 TABLET BY MOUTH ONCE D* ATENOLOL 25 MG TABLET TAKE 1 TABLET BY MOUTH ONCE D* OMEPRAZOLE 20 MG CAPSULE,TAYE* TAKE 1 CAPSULE TWICE DAILY CIPROFLOXACIN 500 MG TABLET Take 1 tablet by mouth twice * LORAZEPAM 1 MG TABLET ACYCLOVIR 400 MG TABLET Take 1 tablet by mouth twice * DIVALPROEX 250 MG TABLET,TAYE* Take 500 mg by mouth twice da* DULOXETINE 60 MG CAPSULE,TAYE* Take 1 capsule by mouth twice* Problem List As Of Date 12/02/2017 Noted Resolved MIGRAINE NOS W/O MENTN INTRACTABLE [G43.909] INVALID FOR* BIPOLAR - MOST RECENT EPISODE UNSPECIFIED [F31.*INVALID FOR* Open wound of knee, leg (except thigh), and ank*INVALID FOR*11/22/2012 Acute gastritis without mention of hemorrhage [*INVALID FOR*11/22/2012 DIAPHRAGMATIC HERNIA [K44.9] INVALID FOR* Lateral epicondylitis of elbow [M77.10] INVALID FOR*11/22/2012 ADJUSTMENT DISORDER WITH DEPRESSED MOOD [F43.21]INVALID FOR* Plantar fascial fibromatosis [M72.2] INVALID FOR*11/30/2016 Pain in limb [M79.609] INVALID FOR*03/21/2015 Female Stress Incontinence [N39.3] INVALID FOR*10/09/2009 Urge Incontinence [N39.41] INVALID FOR*10/09/2009 Other chronic cystitis [N30.20] INVALID FOR*06/04/2016 Irritable bowel syndrome [K58.9] INVALID FOR* Trochanteric bursitis of both hips [M70.61, M70*INVALID FOR* 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 Knee pain, bilateral [M25.561, M25.562] INVALID FOR*10/04/2017 Arthritis of knee, left [M17.12] INVALID FOR*10/04/2017 Herpes simplex labialis [B00.1] INVALID FOR*10/04/2017 Psoriasis with arthropathy (HCC) [L40.50] INVALID FOR* Benign essential tremor [G25.0] INVALID FOR* Tobacco use [Z72.0] INVALID FOR* SOB (shortness of breath) on exertion [R06.02] INVALID FOR* Chronic tension-type headache, not intractable *INVALID FOR* Nausea [R11.0] INVALID FOR*10/04/2017 Pyoderma (skin infection) [L08.0] INVALID FOR*10/04/2017 Gastroesophageal reflux disease with esophagiti*INVALID FOR* Muscle contraction headache [G44.209] INVALID FOR*10/04/2017 Upper back pain [M54.9] INVALID FOR* Vasomotor rhinitis [J30.0] INVALID FOR* Fibromyalgia [M79.7] INVALID FOR* Recurrent urinary tract infection [N39.0] INVALID FOR* Genital warts [A63.0] INVALID FOR*10/04/2017 History of hysterectomy [Z98.890, Z90.710] INVALID FOR*08/21/2016 Medication monitoring encounter [Z51.81] INVALID FOR*10/04/2017 Cutaneous lupus erythematosus [L93.2] INVALID FOR* KRISTINA I (cervical intraepithelial neoplasia I) [N*INVALID FOR* More... Prescriptions ordered this encounter Disp Refills Start End HYDROXYCHLOROQUINE 200 MG TABLET 56 t* 2 12/02/2017 Sig: TAKE 1 TABLET BY MOUTH TWICE DAILY. MELOXICAM 15 MG TABLET 28 t* 2 12/02/2017 Sig: TAKE 1 TABLET BY MOUTH ONCE DAILY. TAKE WITH FOOD. ATENOLOL 25 MG TABLET 28 t* 2 12/02/2017 Sig: TAKE 1 TABLET BY MOUTH ONCE DAILY. OMEPRAZOLE 20 MG CAPSULE,DELAYED REL* 56 c* 2 12/02/2017 Sig: TAKE 1 CAPSULE TWICE DAILY Medications Discontinued During This Encounter hydroxychloroquine (PLAQUENIL) 200 m* 56 t* 1 10/07/2017 12/02/2017 Sig: TAKE 1 TABLET BY MOUTH TWICE DAILY. Disc: Reason for discontinue is not on file. meloxicam (MOBIC) 15 mg tablet 28 t* 11 11/30/2016 12/02/2017 Sig: TAKE 1 TABLET BY MOUTH ONCE DAILY. TAKE WITH FOOD. Disc: Reason for discontinue is not on file. atenolol (TENORMIN) 25 mg tablet 90 t* 3 11/30/2016 12/02/2017 Route: ORAL Sig: Take 1 tablet by mouth once daily. Disc: Reason for discontinue is not on file. omeprazole (PRILOSEC) 20 mg capsule 180 * 3 11/30/2016 12/02/2017 Route: ORAL Sig: Take 1 capsule by mouth twice daily. Disc: Reason for discontinue is not on file. Encounter Status:Closed by JALEESA KEEN CMA on 12/02/17 SURGICAL PATHOLOGY Observed: 11/16/2017 Status: F Source: LEE 3:26 PM [facility] REPOSITORY Specimen originated from [facility] Specimen #: [id number] Submitting Physician: JERSEY BROWNLEE M.D. ([id number]) FINAL DIAGNOSIS Cervix, 6 o'clock, biopsy - Low-grade squamous intraepithelial lesion (KRISTINA 1). TLP 11/18/2017 Anastacia Bar M.D. (Electronic Signature) SPECIMEN SUBMITTED A: CERVIX, BIOPSY 6:00 CLINICAL DATA ascus, +HRHPV GROSS DESCRIPTION A. Received in alcoholic formalin are two segments of irregular brownish white mucosal covered tissue aggregating to 0.5 x 0.2 x 0.2 cm. Totally submitted in one cassette. Gross examination performed at [facility], [address] [place] [address] 11/18/2017 2:29:08 AM Date of Report: 11/18/2017 Date of Procedure: 11/16/2017 Date of Receipt: 11/17/2017 Submitted by: JERSEY BROWNLEE M.D. ([id number]) Location: [facility] Diagnostic interpretation performed at [facility], [address] [place] [address]. PROGRESS Observed: 11/16/2017 Status: COMPLETED Source: LEE 3:00 PM [facility] REPOSITORY HNO ID: [id number] Author: Jersey Brownlee Service: (none) Author Type: Physician Type: Progress Notes Filed: 11/16/2017 3:26 PM Note Text: Jamshid Byrd is a 56 year old female who presents today for a colposcopy. Her last pap smear was ASCUS with positive HPV from September 2017. Patient has a history of abnormal pap: Yes. She has had prior treatment: cone biopsy. test: n/a UNIVERSAL PROTOCOL / SAFETY CHECKLIST Procedure to be performed: colposcopy w/ possible biopsy Sign in Communication: Completed Time Out: Team Confirms the Correct Patient, Correct Procedure, Correct Site and Site Marking, Correct Position (if applicable), Prep and Dry Time (if applicable). Time: 1517 Affirmation of Time Out: YES Sign Out Discussion: Completed Jersey Brownlee MD PROCEDURE: EXTERNAL GENITALIA: Normal in appearance without lesions VAGINA: Normal in appearance without lesions CERVIX: Speculum placed in vagina and excellent visualization of cervix achieved. Cervix swabbed x 3 with 3% acetic acid solution. Cervix grossly normal. Squamocolumnar junction visualized. acetowhite changes noted 6-7, punctations noted -none, mosaicism noted none and atypical vasculature noted none. BIOPSY: Done at 6:00 ECC: not done HEMOSTASIS: Obtained with silver nitrate Procedure Summary: Patient tolerated procedure well and colposcopy was adequate. ASSESSMENT: ASCUS pap PLAN: Specimens labeled and sent to Pathology. Will notify patient of results in 1-2 weeks. Post-procedure instructions reviewed and written material given to the patient. Jersey Brownlee MD CNOV Observed: 11/16/2017 Status: COMPLETED Source: LEE 2:40 PM [facility] REPOSITORY Office Visit (WOOB) JAMSHID BYRD ([id number]) 1960 F Date Time Provider Department 11/16/17 2:40 PM JERSEY BROWNLEE During your visit today, we recorded the following information about you: Blood pressure Weight 114/68 78.9 kg Amalia Cody Ma 11/16/2017 3:00 PM Signed YOUR RECOVERY It may take a few weeks for your cervix to heal. While your cervix heals, you may have: - Vaginal bleeding (less than a normal menstrual period) - Mild cramping - A brown-black vaginal discharge (similar to coffee grounds) which is a result of the paste used to help stop bleeding from the procedure Do NOT put anything in the vagina for 1 week after your colposcopy if your doctor does a biopsy of your cervix. This includes sex, tampons, and douches. If you have any discomfort, you may take an over the counter pain medication (motrin, advil, ibuprofen, tylenol, etc). If this does not relieve your discomfort, contact your doctor's office for a prescription strength pain medication. It is okay to wear a sanitary pad until the discharge and spotting stops. RISKS Although problems seldom occur with colposcopy, there can be some complications. You may feel faint during and shortly after the procedure as well as have some bleeding and vaginal discharge after the procedure. There is also a risk of infection after the procedure. These complications are rare and can be easily treated. You should contact you doctor is you have any of the following: - Heavy bleeding (more than your normal period) - Bleeding with clots - Severe abdominal pain - Fever (more than 100.4F) - Foul smelling vaginal discharge RESULTS If a biopsy was taken, we will have the results of your biopsy in 1-2 weeks. If you do not hear the results of your biopsy after 2 weeks, please contact your physicians office for the results. Depending on the biopsy results, your doctor will determine your follow up plan which may include further testing or treatments. STAYING HEALTHY After the procedure, you will need to see your doctor for follow up visits during the year. At these visits your doctor will check the health of your cervix with a pap smear. After three normal pap smears, your doctor will allow you to return to having exams once a year. If you have another abnormal pap smear, you may need closer follow up for longer or you may need additional treatment. By making a few lifestyle changes after the procedure, you can help protect the health of your cervix: - Have regular pelvic exams and pap smears as ordered by your doctor. - Stop smoking as smoking increases your risk of developing a cancer of the cervix - If you have more than one sexual partner, limit your number of partners and use condoms to reduce your risks of STDs. If you have any additional questions, please contact your doctor's office. Jersey Brownlee MD 11/16/2017 3:26 PM Signed Jamshid Byrd is a 56 year old female who presents today for a colposcopy. Her last pap smear was ASCUS with positive HPV from September 2017. Patient has a history of abnormal pap: Yes. She has had prior treatment: cone biopsy. test: n/a UNIVERSAL PROTOCOL / SAFETY CHECKLIST Procedure to be performed: colposcopy w/ possible biopsy Sign in Communication: Completed Time Out: Team Confirms the Correct Patient, Correct Procedure, Correct Site and Site Marking, Correct Position (if applicable), Prep and Dry Time (if applicable). Time: 1517 Affirmation of Time Out: YES Sign Out Discussion: Completed Jersey Brownlee MD PROCEDURE: EXTERNAL GENITALIA: Normal in appearance without lesions VAGINA: Normal in appearance without lesions CERVIX: Speculum placed in vagina and excellent visualization of cervix achieved. Cervix swabbed x 3 with 3% acetic acid solution. Cervix grossly normal. Squamocolumnar junction visualized. acetowhite changes noted 6-7, punctations noted -none, mosaicism noted none and atypical vasculature noted none. BIOPSY: Done at 6:00 ECC: not done HEMOSTASIS: Obtained with silver nitrate Procedure Summary: Patient tolerated procedure well and colposcopy was adequate. ASSESSMENT: ASCUS pap PLAN: Specimens labeled and sent to Pathology. Will notify patient of results in 1-2 weeks. Post-procedure instructions reviewed and written material given to the patient. Jersey Brownlee MD Referring Provider: JERSEY BROWNLEE [[id number]] Allergies As of Date: 11/16/2017 Noted Allergy Reaction MACRODANTIN (NITROFURANTOIN MACRO*02/10/2010 10 - Anaphylaxis BACTRIM (SULFAMETHOXAZOLE) 09/25/2014 14 - Other: See Comments Comments: mouth sores--Paredes Dillon reaction LITHIUM 02/08/2012 2 - Rash Date Reviewed: 11/16/2017 Reviewed by: Jersey Brownlee - Fully Assessed Reason for Visit: Colposcopy [1551] Cmt: ASCUS HPV ++ Visit Diagnoses:Papanicolaou smear of cervix with atypical squamous cells of undetermined significance (ASC-US) [R87.610] Cervical high risk human papillomavirus (HPV) DNA test positive [R87.810] Order(s):COLPOSCOPY [[id number]] Order #: [id number] SURGICAL PATHOLOGY [[id number]] Order #: [id number] Prescriptions as of 11/16/2017 Sig: HYDROXYCHLOROQUINE 200 MG TAB* TAKE 1 TABLET BY MOUTH TWICE * LORAZEPAM 1 MG TABLET OMEPRAZOLE 20 MG CAPSULE,TAYE* Take 1 capsule by mouth twice* ATENOLOL 25 MG TABLET Take 1 tablet by mouth once d* MELOXICAM 15 MG TABLET TAKE 1 TABLET BY MOUTH ONCE D* ACYCLOVIR 400 MG TABLET Take 1 tablet by mouth twice * DIVALPROEX 250 MG TABLET,TAYE* Take 500 mg by mouth twice da* DULOXETINE 60 MG CAPSULE,TAYE* Take 1 capsule by mouth twice* CIPROFLOXACIN 500 MG TABLET Take 1 tablet by mouth twice * Problem List As Of Date 11/16/2017 Noted Resolved MIGRAINE NOS W/O MENTN INTRACTABLE [G43.909] INVALID FOR* BIPOLAR - MOST RECENT EPISODE UNSPECIFIED [F31.*INVALID FOR* Open wound of knee, leg (except thigh), and ank*INVALID FOR*11/22/2012 Acute gastritis without mention of hemorrhage [*INVALID FOR*11/22/2012 DIAPHRAGMATIC HERNIA [K44.9] INVALID FOR* Lateral epicondylitis of elbow [M77.10] INVALID FOR*11/22/2012 ADJUSTMENT DISORDER WITH DEPRESSED MOOD [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]INVALID FOR* Plantar fascial fibromatosis [M72.2] INVALID FOR*11/30/2016 Pain in limb [M79.609] INVALID FOR*03/21/2015 Female Stress Incontinence [N39.3] INVALID FOR*10/09/2009 Urge Incontinence [N39.41] INVALID FOR*10/09/2009 Other chronic cystitis [N30.20] INVALID FOR*06/04/2016 Irritable bowel syndrome [K58.9] INVALID FOR* Trochanteric bursitis of both hips [M70.61, M70*INVALID FOR* 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 Knee pain, bilateral [M25.561, M25.562] INVALID FOR*10/04/2017 Arthritis of knee, left [M17.12] INVALID FOR*10/04/2017 Herpes simplex labialis [B00.1] INVALID FOR*10/04/2017 Psoriasis with arthropathy (HCC) [L40.50] INVALID FOR* Benign essential tremor [G25.0] INVALID FOR* Tobacco use [Z72.0] INVALID FOR* SOB (shortness of breath) on exertion [R06.02] INVALID FOR* Chronic tension-type headache, not intractable *INVALID FOR* Nausea [R11.0] INVALID FOR*10/04/2017 Pyoderma (skin infection) [L08.0] INVALID FOR*10/04/2017 Gastroesophageal reflux disease with esophagiti*INVALID FOR* Muscle contraction headache [G44.209] INVALID FOR*10/04/2017 Upper back pain [M54.9] INVALID FOR* Vasomotor rhinitis [J30.0] INVALID FOR* Fibromyalgia [M79.7] INVALID FOR* Recurrent urinary tract infection [N39.0] INVALID FOR* Genital warts [A63.0] INVALID FOR*10/04/2017 History of hysterectomy [Z98.890, Z90.710] INVALID FOR*08/21/2016 Medication monitoring encounter [Z51.81] INVALID FOR*10/04/2017 Cutaneous lupus erythematosus [L93.2] INVALID FOR* Other instructions from your clinician: YOUR RECOVERY It may take a few weeks for your cervix to heal. While your cervix heals, you may have: - Vaginal bleeding (less than a normal menstrual period) - Mild cramping - A brown-black vaginal discharge (similar to coffee grounds) which is a result of the paste used to help stop bleeding from the procedure Do NOT put anything in the vagina for 1 week after your colposcopy if your doctor does a biopsy of your cervix. This includes sex, tampons, and douches. If you have any discomfort, you may take an over the counter pain medication (motrin, advil, ibuprofen, tylenol, etc). If this does not relieve your discomfort, contact your doctor's office for a prescription strength pain medication. It is okay to wear a sanitary pad until the discharge and spotting stops. RISKS Although problems seldom occur with colposcopy, there can be some complications. You may feel faint during and shortly after the procedure as well as have some bleeding and vaginal discharge after the procedure. There is also a risk of infection after the procedure. These complications are rare and can be easily treated. You should contact you doctor is you have any of the following: - Heavy bleeding (more than your normal period) - Bleeding with clots - Severe abdominal pain - Fever (more than 100.4F) - Foul smelling vaginal discharge RESULTS If a biopsy was taken, we will have the results of your biopsy in 1-2 weeks. If you do not hear the results of your biopsy after 2 weeks, please contact your physicians office for the results. Depending on the biopsy results, your doctor will determine your follow up plan which may include further testing or treatments. STAYING HEALTHY After the procedure, you will need to see your doctor for follow up visits during the year. At these visits your doctor will check the health of your cervix with a pap smear. After three normal pap smears, your doctor will allow you to return to having exams once a year. If you have another abnormal pap smear, you may need closer follow up for longer or you may need additional treatment. By making a few lifestyle changes after the procedure, you can help protect the health of your cervix: - Have regular pelvic exams and pap smears as ordered by your doctor. - Stop smoking as smoking increases your risk of developing a cancer of the cervix - If you have more than one sexual partner, limit your number of partners and use condoms to reduce your risks of STDs. If you have any additional questions, please contact your doctor's office. Encounter Status:Closed by JERSEY BROWNLEE MD on 11/16/17 SUZAN Observed: 10/29/2017 Status: COMPLETED Source: LEE 12:00 AM [facility] JAMSHID BYRD ([id number]) 1960 F Date Time Provider Department 10/29/17 DAVEY CARABALLO) [facility] During your visit today, we recorded the following information about you: Davey Caraballo CNP 10/29/2017 6:28 AM Signed Please notify that the urine culture showed no infection. May continue taking the antibiotic if symptoms are improving. If symptoms persist/worsen f/u with primary care. Hematuria noted on ua, patient should have urine retested with pcp in 2-4 weeks to see if persisting. Daja Mays LPN 10/29/2017 9:31 AM Signed Patient given result note and verbalized an understanding. Allergies As of Date: 10/29/2017 Noted Allergy Reaction MACRODANTIN (NITROFURANTOIN MACRO*02/10/2010 10 - Anaphylaxis BACTRIM (SULFAMETHOXAZOLE) 09/25/2014 14 - Other: See Comments Comments: mouth sores--Paredes Dillon reaction LITHIUM 02/08/2012 2 - Rash Date Reviewed: 10/26/2017 Reviewed by: Davey Caraballo - Fully Assessed Reason for Visit: Results [95] Prescriptions as of 10/29/2017 Sig: CEPHALEXIN 500 MG CAPSULE Take 1 capsule by mouth three* CIPROFLOXACIN 500 MG TABLET Take 1 tablet by mouth twice * HYDROXYCHLOROQUINE 200 MG TAB* TAKE 1 TABLET BY MOUTH TWICE * LORAZEPAM 1 MG TABLET OMEPRAZOLE 20 MG CAPSULE,TAYE* Take 1 capsule by mouth twice* ATENOLOL 25 MG TABLET Take 1 tablet by mouth once d* MELOXICAM 15 MG TABLET TAKE 1 TABLET BY MOUTH ONCE D* ACYCLOVIR 400 MG TABLET Take 1 tablet by mouth twice * DIVALPROEX 250 MG TABLET,TAYE* Take 500 mg by mouth twice da* DULOXETINE 60 MG CAPSULE,TAYE* Take 1 capsule by mouth twice* Problem List As Of Date 10/29/2017 Noted Resolved MIGRAINE NOS W/O MENTN INTRACTABLE [G43.909] INVALID FOR* BIPOLAR - MOST RECENT EPISODE UNSPECIFIED [F31.*INVALID FOR* Open wound of knee, leg (except thigh), and ank*INVALID FOR*11/22/2012 Acute gastritis without mention of hemorrhage [*INVALID FOR*11/22/2012 DIAPHRAGMATIC HERNIA [K44.9] INVALID FOR* Lateral epicondylitis of elbow [M77.10] INVALID FOR*11/22/2012 ADJUSTMENT DISORDER WITH DEPRESSED MOOD [F43.21]INVALID FOR* Plantar fascial fibromatosis [M72.2] INVALID FOR*11/30/2016 Pain in limb [M79.609] INVALID FOR*03/21/2015 Female Stress Incontinence [N39.3] INVALID FOR*10/09/2009 Urge Incontinence [N39.41] INVALID FOR*10/09/2009 Other chronic cystitis [N30.20] INVALID FOR*06/04/2016 Irritable bowel syndrome [K58.9] INVALID FOR* Trochanteric bursitis of both hips [M70.61, M70*INVALID FOR* 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 Knee pain, bilateral [M25.561, M25.562] INVALID FOR*10/04/2017 Arthritis of knee, left [M17.12] INVALID FOR*10/04/2017 Herpes simplex labialis [B00.1] INVALID FOR*10/04/2017 Psoriasis with arthropathy (HCC) [L40.50] INVALID FOR* Benign essential tremor [G25.0] INVALID FOR* Tobacco use [Z72.0] INVALID FOR* SOB (shortness of breath) on exertion [R06.02] INVALID FOR* Chronic tension-type headache, not intractable *INVALID FOR* Nausea [R11.0] INVALID FOR*10/04/2017 Pyoderma (skin infection) [L08.0] INVALID FOR*10/04/2017 Gastroesophageal reflux disease with esophagiti*INVALID FOR* Muscle contraction headache [G44.209] INVALID FOR*10/04/2017 Upper back pain [M54.9] INVALID FOR* Vasomotor rhinitis [J30.0] INVALID FOR* Fibromyalgia [M79.7] INVALID FOR* Recurrent urinary tract infection [N39.0] INVALID FOR* Genital warts [A63.0] INVALID FOR*10/04/2017 History of hysterectomy [Z90.710] INVALID FOR*08/21/2016 Medication monitoring encounter [Z51.81] INVALID FOR*10/04/2017 Cutaneous lupus erythematosus [L93.2] INVALID FOR* Encounter Status:Closed by DAJA MAYS LPN on 10/29/17 PROGRESS Observed: 10/28/2017 Status: COMPLETED Source: L[facility] 1:22 PM [facility] HNO ID: [id number] Author: Kyung Bates III Service: (none) Author Type: Physician Type: Progress Notes Filed: 10/28/2017 1:22 PM Note Text: Jamshid, Your lab results are stable. Stable kidney function and electrolytes. Blood sugar is a little higher than where we would like it though not at the diabetic range. I do recommend an appointment within the next 3 months to manage the prescription of the Cymbalta. Kyung Bates III, MD, FAAFP Observed: 10/26/2017 Status: F Source: L[facility] URINE CULTURE 4:47 PM [facility] Sp. Request/Comment: - Specimen received in preservative Culture Result - 10,000 - <50,000 CFU/ml Normal urogenital astrid Performed By: #### URCUL #### [facility] [address] [id number] PROGRESS Observed: 10/26/2017 Status: COMPLETED Source: LEE 4:29 PM [facility] HNO ID: [id number] Author: Davey Caraballo Service: (none) Author Type: Nurse Practitioner Type: Progress Notes Filed: 10/26/2017 4:55 PM Note Text: HPI HPI Jamshid Byrd is a 56 year old female who presents today for CC of urinary burning, frequency. This started 7 days ago. Has tried nothing. Symptoms are made relieved by nothing. Symptoms are worsened by nothing. Risk factors gets frequency. Review of Systems Constitutional: Negative for chills, fever and weight loss. Respiratory: Negative for cough, shortness of breath and wheezing. Cardiovascular: Negative for chest pain and palpitations. Gastrointestinal: Negative for abdominal pain, blood in stool, constipation, diarrhea, heartburn, melena, nausea and vomiting. Genitourinary: Positive for dysuria, frequency and urgency. Negative for flank pain and hematuria. Musculoskeletal: Positive for myalgias. 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 - Diaphragmatic hernia without mention of obstruction or gangrene - Drug abuse and dependence (HCC) 10/24/2012 - Esophageal reflux - Esophagitis, unspecified - Gastroesophageal reflux disease with esophagitis 11/06/2015 - Genital warts - Herpes simplex labialis 06/12/2014 - Irritable bowel syndrome 09/05/2010 - Other forms of migraine - Systemic lupus erythematosus (HCC) 10/24/2012 - TMJ syndrome 10/24/2012 - Tubular adenoma of colon 12/29/12 - Unspecified drug or medicinal substance causing adverse effect in therapeutic use(E947.9) PAST SURGICAL HISTORY Procedure Laterality Date - COLONOSCOP W/ OR W/O BRSH SPEC 12/28/2012 Colonoscopy - EGD W/O BRSH SPECIMEN W/BX 01/03/07 - EGD W/O OR W/BRUSH/WASH 12/28/2012 EGD - EXCISION OF LINGUAL TONSIL - PAST SURGICAL HISTORY OF tubal ligation - PAST SURGICAL HISTORY OF 08/22/2009 mid urethral sling ALLERGIES Macrodantin [Nitrofurantoin Macrocrystalline]; Bactrim [Sulfamethoxazole]; [employer] MEDICATIONS hydroxychloroquine (PLAQUENIL) 200 mg tablet TAKE 1 TABLET BY MOUTH TWICE DAILY. LORazepam (ATIVAN) 1 mg tablet omeprazole (PRILOSEC) 20 mg capsule Take 1 capsule by mouth twice daily. atenolol (TENORMIN) 25 mg tablet Take 1 tablet by mouth once daily. meloxicam (MOBIC) 15 mg tablet TAKE 1 TABLET BY MOUTH ONCE DAILY. TAKE WITH FOOD. acyclovir (ZOVIRAX) 400 mg tablet Take 1 tablet by mouth twice daily. divalproex DR 250 mg EC tablet Take 500 mg by mouth twice daily. DULoxetine (CYMBALTA) 60 mg capsule Take 1 capsule by mouth twice daily. ciprofloxacin HCl (CIPRO) 500 mg tablet Take 1 tablet by mouth twice daily. FAMILY HISTORY Problem Relation Age of Onset - Breast Cancer Mother - Other [OTHER] Father not in contact with father - Cancer Paternal Grandmother throat - Cancer Paternal Aunt STOMACH - Breast Cancer Maternal Aunt - Psychiatry Brother schizophrenia - Diabetes Brother - Colon Cancer Brother thyroid and liver - Psychiatry Brother explosive personality - None Brother - obesity [OTHER] Sister Social History Substance Use Topics - Smoking status: Current Every Day Smoker Packs/day: 0.50 Years: 34.00 Types: Cigarettes - Smokeless tobacco: Never Used Comment: < 1 ppk - Alcohol use 1.5 - 12.0 oz/week 1 - 2 Cans of Beer (12oz) per week Comment: occ Blood pressure 110/72, pulse 64, temperature 36.3 ?C (97.3 ?F), temperature source Left Tympanic, resp. rate 16, weight 80.3 kg (177 lb), last menstrual period 06/20/2007. Physical Exam Constitutional: She is well-developed, well-nourished, and in no distress. Non-toxic appearance. She does not have a sickly appearance. No distress. Cardiovascular: Normal rate, regular rhythm and normal heart sounds. Pulmonary/Chest: Effort normal and breath sounds normal. Abdominal: Soft. Normal appearance and bowel sounds are normal. There is no hepatosplenomegaly. There is no tenderness. There is no CVA tenderness. Skin: Skin is warm and dry. ASSESSMENT/PLAN: 1. Frequent urination - ICD9: 788.41, ICD10: R35.0 Acute -per last 2 cultures cephalexin would be a good candidate, patient requesting cipro - UA positive for fermin esterase, hematuria and proteinuria - Send urine for culture - Begin treatment with cephalexin for 7 days - Patient education for prevention given - UA DIP B/O - URINE CULTURE - CEPHALEXIN 500 MG CAPSULE Prescription instructions reviewed with patient as applicable. Patient advised if symptoms do not improve or if symptoms worsen sooner, to contact the office for further evaluation by either myself or their primary care physician. Potential red flag symptoms discussed with the patient. Reviewed appropriate action plan to take if red flag symptoms occur. Patient agreeable to treatment plan. Davey Caraballo CNP CNOV Observed: 10/26/2017 Status: COMPLETED Source: LEE 4:15 PM [facility] Office Visit ([facility]) JAMSHID BYRD ([id number]) 1960 F Date Time Provider Department 10/26/17 4:15 PM DAVEY CARABALLO ([facility]) [facility] During your visit today, we recorded the following information about you: Temperature Pulse Respiration Blood pressure 97.3 degrees 64/minute 16/minute 110/72 Weight 80.3 kg Davey Caraballo CNP 10/26/2017 4:55 PM Signed HPI HPI Jamshidanoop Byrd is a 56 year old female who presents today for CC of urinary burning, frequency. This started 7 days ago. Has tried nothing. Symptoms are made relieved by nothing. Symptoms are worsened by nothing. Risk factors gets frequency. Review of Systems Constitutional: Negative for chills, fever and weight loss. Respiratory: Negative for cough, shortness of breath and wheezing. Cardiovascular: Negative for chest pain and palpitations. Gastrointestinal: Negative for abdominal pain, blood in stool, constipation, diarrhea, heartburn, melena, nausea and vomiting. Genitourinary: Positive for dysuria, frequency and urgency. Negative for flank pain and hematuria. Musculoskeletal: Positive for myalgias. 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 - Diaphragmatic hernia without mention of obstruction or gangrene - Drug abuse and dependence (HCC) 10/24/2012 - Esophageal reflux - Esophagitis, unspecified - Gastroesophageal reflux disease with esophagitis 11/06/2015 - Genital warts - Herpes simplex labialis 06/12/2014 - Irritable bowel syndrome 09/05/2010 - Other forms of migraine - Systemic lupus erythematosus (HCC) 10/24/2012 - TMJ syndrome 10/24/2012 - Tubular adenoma of colon 12/29/12 - Unspecified drug or medicinal substance causing adverse effect in therapeutic use(E947.9) PAST SURGICAL HISTORY Procedure Laterality Date - COLONOSCOP W/ OR W/O BRSH SPEC 12/28/2012 Colonoscopy - EGD W/O BRSH SPECIMEN W/BX 01/03/07 - EGD W/O OR W/BRUSH/WASH 12/28/2012 EGD - EXCISION OF LINGUAL TONSIL - PAST SURGICAL HISTORY OF tubal ligation - PAST SURGICAL HISTORY OF 08/22/2009 mid urethral sling ALLERGIES Macrodantin [Nitrofurantoin Macrocrystalline]; Bactrim [Sulfamethoxazole]; [employer] MEDICATIONS hydroxychloroquine (PLAQUENIL) 200 mg tablet TAKE 1 TABLET BY MOUTH TWICE DAILY. LORazepam (ATIVAN) 1 mg tablet omeprazole (PRILOSEC) 20 mg capsule Take 1 capsule by mouth twice daily. atenolol (TENORMIN) 25 mg tablet Take 1 tablet by mouth once daily. meloxicam (MOBIC) 15 mg tablet TAKE 1 TABLET BY MOUTH ONCE DAILY. TAKE WITH FOOD. acyclovir (ZOVIRAX) 400 mg tablet Take 1 tablet by mouth twice daily. divalproex DR 250 mg EC tablet Take 500 mg by mouth twice daily. DULoxetine (CYMBALTA) 60 mg capsule Take 1 capsule by mouth twice daily. ciprofloxacin HCl (CIPRO) 500 mg tablet Take 1 tablet by mouth twice daily. FAMILY HISTORY Problem Relation Age of Onset - Breast Cancer Mother - Other [OTHER] Father not in contact with father - Cancer Paternal Grandmother throat - Cancer Paternal Aunt STOMACH - Breast Cancer Maternal Aunt - Psychiatry Brother schizophrenia - Diabetes Brother - Colon Cancer Brother thyroid and liver - Psychiatry Brother explosive personality - None Brother - obesity [OTHER] Sister Social History Substance Use Topics - Smoking status: Current Every Day Smoker Packs/day: 0.50 Years: 34.00 Types: Cigarettes - Smokeless tobacco: Never Used Comment: ANDlt; 1 ppk - Alcohol use 1.5 - 12.0 oz/week 1 - 2 Cans of Beer (12oz) per week Comment: occ Blood pressure 110/72, pulse 64, temperature 36.3 ?C (97.3 ?F), temperature source Left Tympanic, resp. rate 16, weight 80.3 kg (177 lb), last menstrual period 06/20/2007. Physical Exam Constitutional: She is well-developed, well-nourished, and in no distress. Non-toxic appearance. She does not have a sickly appearance. No distress. Cardiovascular: Normal rate, regular rhythm and normal heart sounds. Pulmonary/Chest: Effort normal and breath sounds normal. Abdominal: Soft. Normal appearance and bowel sounds are normal. There is no hepatosplenomegaly. There is no tenderness. There is no CVA tenderness. Skin: Skin is warm and dry. ASSESSMENT/PLAN: 1. Frequent urination - ICD9: 788.41, ICD10: R35.0 Acute -per last 2 cultures cephalexin would be a good candidate, patient requesting cipro - UA positive for fermin esterase, hematuria and proteinuria - Send urine for culture - Begin treatment with cephalexin for 7 days - Patient education for prevention given - UA DIP B/O - URINE CULTURE - CEPHALEXIN 500 MG CAPSULE Prescription instructions reviewed with patient as applicable. Patient advised if symptoms do not improve or if symptoms worsen sooner, to contact the office for further evaluation by either myself or their primary care physician. Potential red flag symptoms discussed with the patient. Reviewed appropriate action plan to take if red flag symptoms occur. Patient agreeable to treatment plan. SIN Lambert CNP 10/26/2017 4:47 PM Signed URINARY TRACT INFECTION GENERAL INFORMATION: A urinary tract infection (UTI) is an infection of the bladder or kidneys. A bladder infection, called cystitis, is the more common type. If the infection travels up to the kidneys, it is called pyelonephritis. This can be more serious. UTIs are a common problem in women. Having sexual relations can leave a woman more susceptible to developing a UTI, but it is not sexually transmitted like gonorrhea. Some women have a problem with recurrent UTIs. INSTRUCTIONS: 1. Your doctor prescribed an antibiotic to treat the UTI. Take exactly as directed. Be sure to take all the medication prescribed, even if your symptoms disappear. If you stop treatment early, the infection may not be fully treated and the symptoms could come back again. 2. Get plenty of rest. You may take acetaminophen for fever and aches. 3. Drink 6 to 8 glasses of fluids, especially water, every day. This helps wash out germs from your urinary tract. Cranberry juice or other sources of vitamin C are also good for you. 4. Urinate often, as soon as you feel the urge. Empty your bladder completely. Urinate before and after you have sex. 5. Always wipe from front to back after going to the bathroom. This pushes germs away from your bladder, rather than towards it. 6. Showers are better than baths, and you should wash the genital area daily. Avoid bubble bath or bath oils if you do take a bath. 7. Wear underwear and pantyhose with a cotton crotch. CONTACT YOUR DOCTOR: 1. You have a temperature over 102F (38.8C) after 48 hours on medication. 2. You notice blood in your urine. 3. Your symptoms don't improve in 2 days. 4. You develop nausea, vomiting, diarrhea, or a rash. 5. You develop new or unexplained symptoms. These may be related to the medication you are taking. 6. Your symptoms return after you finish treatment. RETURN TO THE EMERGENCY DEPARTMENT IF: You develop vomiting and can't keep your medication or fluids down. Referring Provider: SELF [[id number]] Allergies As of Date: 10/26/2017 Noted Allergy Reaction MACRODANTIN (NITROFURANTOIN MACRO*02/10/2010 10 - Anaphylaxis BACTRIM (SULFAMETHOXAZOLE) 09/25/2014 14 - Other: See Comments Comments: mouth sores--Paredes Dillon reaction LITHIUM 02/08/2012 2 - Rash Date Reviewed: 10/26/2017 Reviewed by: Davey ([facility]) - Fully Assessed Reason for Visit: Urinary Problem [252] Cmt: x 1 week burning with urination, frequent urination and pressure in [place]-area Primary Visit Diagnosis:Frequent urination [R35.0] Order(s):UA DIP B/O [1121116] Order #: [id number] URINE CULTURE [SQURCUL] Order #: [id number] cephALEXin (KEFLEX) 500 mg capsuleTake 1 capsule by mouth three times daily for 7 days.Disp: 21 capsuleRfl: 0 Prescriptions as of 10/26/2017 Sig: HYDROXYCHLOROQUINE 200 MG TAB* TAKE 1 TABLET BY MOUTH TWICE * LORAZEPAM 1 MG TABLET OMEPRAZOLE 20 MG CAPSULE,TAYE* Take 1 capsule by mouth twice* ATENOLOL 25 MG TABLET Take 1 tablet by mouth once d* MELOXICAM 15 MG TABLET TAKE 1 TABLET BY MOUTH ONCE D* ACYCLOVIR 400 MG TABLET Take 1 tablet by mouth twice * DIVALPROEX 250 MG TABLET,TAYE* Take 500 mg by mouth twice da* DULOXETINE 60 MG CAPSULE,TAYE* Take 1 capsule by mouth twice* CEPHALEXIN 500 MG CAPSULE Take 1 capsule by mouth three* CIPROFLOXACIN 500 MG TABLET Take 1 tablet by mouth twice * Medication notes this encounter CIPROFLOXACIN 500 MG TABLET >> Claudia Abdalla LPN 10/26/2017 4:21 PM >> CLAUDIA ABDALLA LPN e Oct 26, 2017 4:21 PM TX done Problem List As Of Date 10/26/2017 Noted Resolved MIGRAINE NOS W/O MENTN INTRACTABLE [G43.909] INVALID FOR* BIPOLAR - MOST RECENT EPISODE UNSPECIFIED [F31.*INVALID FOR* Open wound of knee, leg (except thigh), and ank*INVALID FOR*11/22/2012 Acute gastritis without mention of hemorrhage [*INVALID FOR*11/22/2012 DIAPHRAGMATIC HERNIA [K44.9] INVALID FOR* Lateral epicondylitis of elbow [M77.10] INVALID FOR*11/22/2012 ADJUSTMENT DISORDER WITH DEPRESSED MOOD [F43.21]INVALID FOR* Plantar fascial fibromatosis [M72.2] INVALID FOR*11/30/2016 Pain in limb [M79.609] INVALID FOR*03/21/2015 Female Stress Incontinence [N39.3] INVALID FOR*10/09/2009 Urge Incontinence [N39.41] INVALID FOR*10/09/2009 Other chronic cystitis [N30.20] INVALID FOR*06/04/2016 Irritable bowel syndrome [K58.9] INVALID FOR* Trochanteric bursitis of both hips [M70.61, M70*INVALID FOR* 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 Knee pain, bilateral [M25.561, M25.562] INVALID FOR*10/04/2017 Arthritis of knee, left [M17.12] INVALID FOR*10/04/2017 Herpes simplex labialis [B00.1] INVALID FOR*10/04/2017 Psoriasis with arthropathy (HCC) [L40.50] INVALID FOR* Benign essential tremor [G25.0] INVALID FOR* Tobacco use [Z72.0] INVALID FOR* SOB (shortness of breath) on exertion [R06.02] INVALID FOR* Chronic tension-type headache, not intractable *INVALID FOR* Nausea [R11.0] INVALID FOR*10/04/2017 Pyoderma (skin infection) [L08.0] INVALID FOR*10/04/2017 Gastroesophageal reflux disease with esophagiti*INVALID FOR* Muscle contraction headache [G44.209] INVALID FOR*10/04/2017 Upper back pain [M54.9] INVALID FOR* Vasomotor rhinitis [J30.0] INVALID FOR* Fibromyalgia [M79.7] INVALID FOR* Recurrent urinary tract infection [N39.0] INVALID FOR* Genital warts [A63.0] INVALID FOR*10/04/2017 History of hysterectomy [Z90.710] INVALID FOR*08/21/2016 Medication monitoring encounter [Z51.81] INVALID FOR*10/04/2017 Cutaneous lupus erythematosus [L93.2] INVALID FOR* Other instructions from your clinician: URINARY TRACT INFECTION GENERAL INFORMATION: A urinary tract infection (UTI) is an infection of the bladder or kidneys. A bladder infection, called cystitis, is the more common type. If the infection travels up to the kidneys, it is called pyelonephritis. This can be more serious. UTIs are a common problem in women. Having sexual relations can leave a woman more susceptible to developing a UTI, but it is not sexually transmitted like gonorrhea. Some women have a problem with recurrent UTIs. INSTRUCTIONS: 1. Your doctor prescribed an antibiotic to treat the UTI. Take exactly as directed. Be sure to take all the medication prescribed, even if your symptoms disappear. If you stop treatment early, the infection may not be fully treated and the symptoms could come back again. 2. Get plenty of rest. You may take acetaminophen for fever and aches. 3. Drink 6 to 8 glasses of fluids, especially water, every day. This helps wash out germs from your urinary tract. Cranberry juice or other sources of vitamin C are also good for you. 4. Urinate often, as soon as you feel the urge. Empty your bladder completely. Urinate before and after you have sex. 5. Always wipe from front to back after going to the bathroom. This pushes germs away from your bladder, rather than towards it. 6. Showers are better than baths, and you should wash the genital area daily. Avoid bubble bath or bath oils if you do take a bath. 7. Wear underwear and pantyhose with a cotton crotch. CONTACT YOUR DOCTOR: 1. You have a temperature over 102F (38.8C) after 48 hours on medication. 2. You notice blood in your urine. 3. Your symptoms don't improve in 2 days. 4. You develop nausea, vomiting, diarrhea, or a rash. 5. You develop new or unexplained symptoms. These may be related to the medication you are taking. 6. Your symptoms return after you finish treatment. RETURN TO THE EMERGENCY DEPARTMENT IF: You develop vomiting and can't keep your medication or fluids down. Prescriptions ordered this encounter Disp Refills Start End CEPHALEXIN 500 MG CAPSULE 21 c* 0 10/26/2017 11/02/2017 Route: ORAL Sig: Take 1 capsule by mouth three times daily for 7 days. Encounter Status:Closed by DAVEY CARABALLO CNP on 10/26/17 BASIC METABOLIC PANL Collected: 10/26/2017 Status: F Source: LEE 4:02 PM [facility] REPOSITORY TYPE CODE TESTS RESULT OUT OF REFERENCE UNITS RANGE LAB GLU 74-99 mg/dL High Glucose 104 Result Comment: The [place] [employer] (ADA) provides guidance for cutoff values for fasting glucose and random glucose. The ADA defines fasting as no caloric intake for at least 8 hours. Fas ting plasma glucose results between 100 to 125 mg/dL indicate increased risk for diabetes (prediabetes). Fasting plasma glucose results greater than or equal to 126 mg/dL meet the criteria for diagnosis of diabetes. In the absence of unequivocal hyperglycemia, results should be confirmed by repeat testing. In a patient with classic symptoms of hyperglycemia or hyperglycemic crisis, random plasma glucose results greater than or equal to 200 mg/dL meet the criteria for diagnosis of diabetes. Reference: Standards of Medical Care in Diabetes 2016, [place] [employer]. Diabetes Care. 2016.39(Suppl 1). LAB BUN 7-21 mg/dL BUN 19 LAB CRET 0.58-0.96 mg/dL Creatinine High 1.04 LAB NA 136-144 mmol/L Sodium 142 LAB K 3.7-5.1 mmol/L Potassium 4.2 LAB CL 97-105 mmol/L Chloride 104 LAB CO2 22-30 mmol/L CO2 23 LAB AGAP 9-18 mmol/L Anion Gap 15 LAB CA 8.5-10.2 mg/dL Calcium, Total 8.9 LAB GFRAA eGFR- Amer. >60 LAB GFRNAA . eGFR-All Other Races 55 Result Comment: eGFR (Estimated GFR) Units of measure: mL/min/1.73 meters squared eGFR is derived from the reexpressed MDRD Study equation using the following parameters: serum creatinine, age, gender and race. The creatinine assay has been calibrated to be traceable to IDMS. An eGFR <60 mL/min/1.73m2 for >3 months is consistent with chronic kidney disease. Refer to KDOQI guidelines for clinical interpretation. In patients with unstable renal function, e.g. those with acute kidney injury, the eGFR may not accurately reflect actual GFR. Performed By: #### BMP #### [facility] [address] [address] PLATELET COUNT Collected: 10/26/2017 Status: F Source: LEE 4:02 [facility] REPOSITORY TYPE CODE TESTS RESULT OUT OF REFERENCE UNITS RANGE LAB PLTCT 150-400 k/uL Platelet Count 163 Performed By: #### PLTCT, HFP, VPA #### [facility] [address] [place], [place] [address] HEPATIC FUNCTN PANEL Collected: 10/26/2017 Status: F Source: LEE 4:02 [facility] REPOSITORY TYPE CODE TESTS RESULT OUT OF REFERENCE UNITS RANGE LAB ALB 3.9-4.9 g/dL Albumin 4.0 LAB TBIL 0.2-1.3 mg/dL Bilirubin, Total 0.4 LAB CBIL <0.2 mg/dL Bilirubin,Conjuga <0.2 marin LAB ALKP 32-117 U/L Alkaline Phosphatase 57 LAB AST 13-35 U/L AST 16 LAB ALT 7-38 U/L ALT 12 LAB TP 6.3-8.0 g/dL Protein, Total 6.7 Performed By: #### PLTCT, HFP, VPA #### [facility] [address] [place], [place] [address] VALPROIC ACID Collected: 10/26/2017 Status: F Source: LEE 4:02 [facility] REPOSITORY TYPE CODE TESTS RESULT OUT OF REFERENCE UNITS RANGE LAB VPA 50-100 ug/mL Valproic Acid 52.1 Result Comment: Reference ranges and high/low indicator flags are provided as general guidelines only. The treating physician must determine appropriate target levels/dosing based on the specific clinical situation. 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 [id number]( [id number](RXNORM) [facility]) Repository 09/30/2015 Drug lithium/[id number](RX Unknown Unknown Jenna Allergy/41 NORM) Community [id number]([facility]) Repository 09/30/2015 Drug sulfamethoxazole/F006 Janes Dillon Unknown Jenna Allergy/41 183799(RXNORM) Syndrome Community [id number]([facility]) Repository 09/30/2015 Drug nitrofurantoin/C28111 Janes Dillon Unknown Angie Allergy/41 2852(RXNORM) Syndrome Community [id number]([facility]) Repository 09/30/2015 Drug trimethoprim/[id number] Janes Dillon Unknown Jenna Allergy/41 73(RXNORM) Syndrome Community [id number]([facility]) Repository 09/25/2014 DRUG SULFAMETHOXAZOLE OTHER: SEE C [address] Main [id number]([facility]) Repository 02/08/2012 DRUG LITHIUM RASH [address] Main [id number]([facility]) Repository 02/10/2010 DRUG NITROFURANTOIN ANAPHYLAXIS [address] [place] [address] MACROCRYSTALLINE Clinic Main [id number](SN [place] [facility]) Repository ENCOUNTERS ENCOUNTERS ADMIT/DISCHARGE ACCOUNT NUMBER ADMITTING ENCOUNTER LOCATION SOURCE CLASS 10/05/2018 [id number] Ambulatory [facility] ding:OT Repository 09/27/2018/09/28/20 [id number] Ambulatory [address] Main [place] Repository 09/27/2018/09/27/20 [id number] Ambulatory [address] Main [place] Repository 09/27/2018/09/27/20 [id number] Ambulatory [address] Main [place] Repository 09/20/2018/09/21/20 [id number] Ambulatory [address] Main [place] Repository 08/20/2018/08/22/20 [id number] Ambulatory [address] [place] Repository 06/23/2018/06/27/20 [id number] Ambulatory [address] Main [place] Repository 05/18/2018/05/18/20 [id number] Ambulatory [address] Main [place] Repository 05/02/2018/05/03/20 [id number] Ambulatory [address] Main [place] Repository 04/28/2018/04/28/20 [id number] Ambulatory [address] Main [place] Repository 03/28/2018/03/29/20 [id number] Ambulatory [address] Main [place] Repository 01/18/2018/01/19/20 [id number] ALEXANDER, Ambulatory [address] Main [place] Repository 01/13/2018/01/19/20 [id number] Ambulatory [address] Main [place] Repository 01/03/2018/01/04/20 [id number] Ambulatory [address] Main [place] Repository 12/30/2017/12/30/19 [id number] Ambulatory BBuilding:RA [place] [address] [place] [address] Repository 11/16/2017/11/16/19 [id number] Ambulatory [address] Main [place] Repository 10/26/2017/10/27/20 [id number] Ambulatory [address] Main [place] Repository 10/26/[id number] [facility] Repository PAYERS PAYERS ENCOUNTER GUARANTOR PAYER SUBSCRIBER SOURCE 10/05/2018 JAMSHID [id number] Primary JAMSHID GAMBINOB: Jenna VALDEZ Insurance:[id number] Number: [facility] [id number]: [phone] [id number] Repository [phone] () Date:2015-06-08 [address]ATTN: [place] [address]RR: 10/05/2018 Secondary NOT GIVENUNK Jenna Insurance[facility]LF PAY [facility] Effective Repository Date:2018-09-22 12/30/2017 DISABILITY AOH Primary JAMSHID MILESDOB: Dusty VISUALPL[employer] AULTWORKSDOB: Insurance:[employer] [id number] [employer] [id number] MEDICAIDPolicy CATHERINE Repository [facility] [address] [address] Number: [place], [place] [id number]: [phone]: [phone] Date:2017-12-28 [phone] [id number] ()Tel: [phone] Name:MARTINAO Fermin [id number] () [address] [place] [id number]:
== END 2018-10-05 19:00 | disposition home or self-care (01) ==
LOC: OT 13:11
PROVIDERS: Family Provider Family Medicine; PCP Family Medicine; Referring Provider Nurse Practitioner Family; Visit Provider Nurse Practitioner Family
DX: M54.5 Low back pain (principal); M79.7 Fibromyalgia
CPT/HCPCS: 97750

== ENCOUNTER → 2018-12-02 09:21 | Outpatient (CLI) | payer MEDICAID, SELFPAY ==
--- NOTE | 2018-12-23 11:51 | EEG ---
- Electroencephalogram Date of service 12/02/18 Late dictation, study not previously brought to my attention. This is an 18 channel electroencephalogram performed utilizing the International 10-20 electrode placement protocol on this 58-year-old female with a history of staring spells. Background activity is 8 Hz symmetrically in the posterior leads which attenuates with eye-opening. Hyperventilation is performed for 2 minutes but limited due to cough. Hyperventilation was normal in the post hyperventilatory phase was unremarkable. The patient remained awake throughout the recording without lateralizing or epileptiform changes. EKG remained normal sinus rhythm throughout the recording and photic stimulation demonstrated a normal symmetric drive response in the posterior leads. Impression: Normal awake electroencephalogram.
== END ==
PROVIDERS: Family Provider Family Medicine; PCP Family Medicine; Referring Provider Family Medicine; Visit Provider Family Medicine
DX: R40.4 Transient alteration of awareness (principal)
CPT/HCPCS: 95819

== ENCOUNTER 2019-03-05 14:08 | Emergency (ER) | payer MEDICAID, SELFPAY ==
[2019-03-05 14:09] VITALS: BP 95/62; PULSE 96; RESP 20; TEMP 36.1; BMI 32.8
--- NOTE | 2019-03-05 14:21 | CT_ITS ---
STUDY: CT ABDOMEN AND PELVIS WITHOUT CONTRAST REASON FOR EXAM: Female, 58 years old. Left flank pain. RADIATION DOSAGE (If Supplied By Facility): CTDIvol = ( 10.52 ) mGy, DLP = ( 541.50 ) mGycm TECHNIQUE: Transaxial images were obtained from the dome of the diaphragm to the symphysis pubis without oral contrast, and without intravenous contrast. Sagittal and coronal images were reconstructed. Individualized dose optimization techniques were used for this CT. COMPARISON: None. FINDINGS: Lung bases are clear. Visualized heart is normal. The liver is unremarkable. The gallbladder is unremarkable. The spleen and pancreas are unremarkable. The adrenal glands are normal. The right kidney is unremarkable. No stones or hydronephrosis. There is trace left hydronephrosis and hydroureter. No renal or ureteral stones are seen. The aorta is normal in caliber. There is no free fluid, free air, or organized collection. No bowel obstruction or inflammatory change. Diverticulosis is noted, with no acute diverticulitis. Stool burden is moderate. The appendix is not seen. Urinary bladder is unremarkable. Normal abdominal wall. Normal osseous structures. CT/Abdomen/Pelvis without Cont IMPRESSION: 1. Trace left hydroureteronephrosis with no demonstrated stone. Consider small, nonopaque, or passed stone. Electronically Signed: Rachel De MD at 15:30 EDT Tel , Service support ,
--- NOTE | 2019-03-05 14:30 | ED.DCSUM_ITS ---
- ER Visit Summary Date of Service: 03/05/19 Chief Complaint: Left flank pain History of Present Illness: The patient is a 58 F sent from urgent care with left flank pain. She complains of flank pain for the past 3 days along with dysuria. She states she had nausea and vomiting last evening. She states her temperature was 100.3 at urgent care but she was not given anything for fever. She is afebrile here. She is also complaining of excessive fatigue for the past 6 months stating she always feels sleepy. She states she did have some medication adjustments about that time but it was all medication that she had been on previously. Physical Examination: Blood pressure 95/62, other vitals normal. Patient sitting upright in bed no acute distress. She is nontoxic appearing. Head and neck examination is normal. Heart is regular rate and rhythm. Lung sounds are clear. Abdomen is soft with no focal tenderness on exam. Back examination reveals mild left CVA tenderness. Test Results: CBC was normal white count with hemoglobin 11. Chemistry studies significant for BUN of 23 and creatinine 1.24. Urinalysis does show 25-50 white cells with 1+ bacteria. TSH is normal. Valproic acid is 100. CT flank shows trace left hydro-ureteral nephrosis. There is no demonstrated stone. Emergency Department Course and Treatment: Patient is given Toradol, Zofran, and IV fluids. On repeat evaluation patient is resting comfortably. Urine culture has been sent. She will be given 7-day course of Cipro. Treatment Plan: [] Disposition: Discharge Impression: Pyelonephritis This note was generated with [employer] dictation software. It may contain incorrect words, spelling, and punctuation that were not noted in review of the chart prior to signing ED Disposition - Plan for ED Patient: Disposition: Home or Assisted Living Instructions: ED Kidney Infec Female Prescriptions: Ciprofloxacin [Cipro] 500 mg PO BID #14 tablet Referrals: Praveen Bates III, MD [Primary Care Provider] - 5-7 Days
[2019-03-05] MEDS: Ondansetron 4 MG/2 ML Vial IV (14:39)
[2019-03-05] MEDS: Ketorolac 30 MG/ML Syringe IV (14:39)
[2019-03-05] MEDS: 0.9% Normal Saline 1,000 ML 150 ML IV (14:39)
[2019-03-05 15:23] LABS: Basophil# 0.01 X10^3/uL; Basophil% 0.1 % (0-1); Eosinophil# 0.06 X10^3/uL; Eosinophils% 0.6 % (0-5); Hematocrit 33.2 % (37-47); Mean Corp Hgb Conc 33.1 g/gl (32-36); Mean Corpuscular Volume 84.5 fL (81-99); Mean Platelet Vol. 10.2 fl (6.2-12.0); Monocyte# 2.46 X10^3/uL; Monocyte% 22.7 % (0-10); Neutrophil # 6.97 X10^3/uL (2.7-7.7); Neutrophil % 64.1 % (47-70); Platelet Count 157 K/mm3 (150-450); RBC Distribution Width SD 46.1 fl (35.1-43.9); Red Blood Count 3.93 M/mm3 (4.2-5.4); White Blood Count 10.9 K/mm3 (4.4-11.0)
[2019-03-05 15:29] LABS: Differential Indicated SCAN CRITERIA MET; POSITIVE COUNT NO; POSITIVE DIFFERENTIAL YES; POSITIVE MORPHOLOGY YES
[2019-03-05 15:31] LABS: Anion Gap 5 (5-15); BUN 23 mg/dL (7-18); BUN/Creat Ratio 18.5 RATIO (10-20); Calcium,Total 8.2 mg/dL (8.5-10.1); Chloride 105 mmol/L (98-107); Creatinine, Serum 1.24 mg/dL (0.55-1.02); EST Glomerular Filtration Rate 47 mL/min (>60); Est Glom Filt Rate - Afr Amer 57 mL/min (>60); Estimated Creatinine Clearance 41.41 ml/min; Glucose 99 mg/dL (74-106); Potassium 3.8 mmol/L (3.5-5.1); Sodium Level 138 mmol/L (136-145); Thyroid Stim Hormone (TSH) 1.46 uIU/mL (0.358-3.74)
[2019-03-05 15:36] LABS: Valproic Acid (Depakene) Level 100 ug/mL (50-100)
[2019-03-05 15:41] VITALS: BP 95/77; PULSE 85; RESP 14; O2SAT 95
[2019-03-05 15:42] LABS: Mucous, Urine 0 SEEN /hpf (<or=2+); Red Blood Cells-Urine 0 SEEN /hpf (0-5)
[2019-03-05 15:51] LABS: Glucose, Dipstick Normal (Normal); Ketone-Dipstick Negative (Negative); Leukocyte Esterase-Dipstick 500 /ul (Negative); Nitrite-Dipstick Negative (Negative); Occult Blood-Urine 50 /ul (Negative); Protein-Dipstick 30 mg/dl (Negative); Specific Gravity, Urine 1.005 (1.002-1.030); Urine Bilirubin Dipstick Negative (Negative); Urine Urobilinogen Normal (Normal)
[2019-03-05 15:53] LABS: Differential Comment SCANNED
[2019-03-05 15:55] LABS: Reactive Lymphocyte 1+
[2019-03-05 15:56] LABS: Color, Urine Yellow (Yellow); Urine Clarity Clear (Clear)
[2019-03-05 16:01] LABS: Bacteria 1+ /hpf (None Seen); Squamous Epithelial Cells - UA 0-5 SEEN /hpf (5-10); White Blood Cells 25-50 SEEN /hpf (0-5)
[2019-03-05] MEDS: Ciprofloxacin 500 MG Tablet PO (16:29)
[2019-03-05 16:45] VITALS: BP 102/51; PULSE 78; RESP 14; O2SAT 95
== END 2019-03-05 16:46 | disposition home or self-care (01) ==
PROVIDERS: Emergency Provider Emergency Medicine; Family Provider Family Medicine; PCP Family Medicine
DX: N12 Tubulo-interstitial nephritis, not specified as acute or chronic (principal); F31.9 Bipolar disorder, unspecified; K21.9 Gastro-esophageal reflux disease without esophagitis; Z72.0 Tobacco use
CPT/HCPCS: 36415; 74176; 80048; 80164; 81001; 84443; 85025; 87077; 87086; 87088; 87186; 96361; 96374; 96375; 99285; J7030; J7040; A4216; J2405

== ENCOUNTER 2019-03-08 02:46 | Observation (INO) | payer MEDICAID, SELFPAY ==
[2019-03-08] VITALS (15 sets, daily range): BP systolic 79–129; BP diastolic 48–67; PULSE 69–90; RESP 14–21; TEMP 36.4–36.8; O2SAT 90–99; BMI 33.1; BMI 32.2
--- NOTE | 2019-03-08 02:51 | EKG12_ITS ---
Test Reason : SYNCOPE Blood Pressure : / mmHG Vent. Rate : 074 BPM Atrial Rate : 074 BPM P-R Int : 128 ms QRS Dur : 086 ms QT Int : 400 ms P-R-T Axes : 036 -08 008 degrees QTc Int : 444 ms Normal sinus rhythm Normal ECG Confirmed by SANDEE LEE ([id number]), mapping editor DONALD MOODY ([id number]) on 03/13/2019 1:56:24 PM Referred By: HEIDY Confirmed By:TOÑO LEE
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
[2019-03-08] MEDS: 0.9% Normal Saline 1,000 ML 1000 ML IV (03:07)
--- NOTE | 2019-03-08 03:10 | RAD_ITS ---
STUDY: X-RAY CHEST REASON FOR EXAM: Female, 58 years old. Status post syncope TECHNIQUE: Single AP portable view of the chest. COMPARISON: 02/23/2015 FINDINGS: The lungs are clear and expanded. There is no demonstrated pleural abnormality. Normal size heart. Normal mediastinum and paul. Normal visualized pulmonary arteries. Normal visualized aortic arch and descending thoracic aorta. Normal visualized thoracic spine. Normal visualized ribs, clavicles, and shoulders. There is no demonstrated abnormality of the visualized soft tissue structures of the upper abdomen. RAD/Chest 1 View (Portable) IMPRESSION: Normal x-ray examination of the chest. Electronically Signed: New Lomeli MD at 3:24 EDT Tel , Service support ,
[2019-03-08 03:21] LABS: Bedside Glucose 121 mg/dL (70-110)
[2019-03-08 03:22] LABS: Absolute Lymphocyte Count 2.27 X10^3/ul (0.83-4.51); Basophil# 0.02 X10^3/uL; Basophil% 0.2 % (0-1); Eosinophil# 0.26 X10^3/uL; Eosinophils% 2.7 % (0-5); Hematocrit 31.2 % (37-47); Hemoglobin 10.1 g/dl (12.0-15.0); Lymphocyte # 2.27 X10^3/ul (4.0); Lymphocyte % 23.6 % (19-41); Mean Corp Hgb Conc 32.4 g/gl (32-36); Mean Corpuscular Hgb 27.3 pg (27.0-32.0); Mean Corpuscular Volume 84.3 fL (81-99); Monocyte# 1.98 X10^3/uL; Monocyte% 20.6 % (0-10); Neutrophil # 4.97 X10^3/uL (2.7-7.7); Neutrophil % 51.9 % (47-70); Platelet Count 174 K/mm3 (150-450); RBC Distribution Width CV 14.8 % (11.6-14.6); RBC Distribution Width SD 44.4 fl (35.1-43.9); White Blood Count 9.6 K/mm3 (4.4-11.0)
[2019-03-08 03:23] LABS: Differential Indicated SCAN CRITERIA MET; POSITIVE COUNT NO; POSITIVE DIFFERENTIAL YES; POSITIVE MORPHOLOGY NO
[2019-03-08 03:25] LABS: International Normalized Ratio 1.2; Partial Thromboplast Time 21.3 Seconds (24.1-36.2); Prothrombin Time (Protime)PT. 14.6 SECONDS (11.7-14.9)
[2019-03-08 03:27] LABS: Mucous, Urine 0 SEEN /hpf (<or=2+)
[2019-03-08 03:32] LABS: Internal QC Validated? YES +Cl - CLEAR BKGD; Pregnancy, Urine Negative Negative
[2019-03-08 03:32] LABS: D-Dimer Quantitative (DVT/PE) 0.75 FEU/ug/m (0.27-0.49)
--- NOTE | 2019-03-08 03:33 | CT_ITS ---
STUDY: CTA CHEST REASON FOR EXAM: Female, 58 years old. Syncopal episode. Elevated d-dimer. RADIATION DOSAGE (If Supplied By Facility): CTDIvol = ( 9.91 ) mGy, DLP = ( 457.81 ) mGycm TECHNIQUE: The examination was performed with the intravenous administration of 100ML IV Isovue 370. Post-processing of the angiographic images was performed, with multiplanar reformation and 3D reconstruction. Individualized dose optimization techniques were used for this CT. COMPARISON: None. FINDINGS: Normal enhancement of the main pulmonary artery and right and left pulmonary arteries. Normal enhancement of the bilateral peripheral pulmonary arteries. There is no demonstrated pulmonary embolism. Normal thoracic aorta and visualized great vessels. There is no demonstrated aortic dissection. Normal heart and pericardium. Normal mediastinum. Normal hilar regions. Normal visualized trachea and bronchi. The lungs are well expanded. Minimal bilateral lower lobe subsegmental atelectasis. Normal pleura. Normal chest wall structures. Normal osseous structures. Normal visualized upper abdomen. CT/CTA Chest W/WO Contrast IMPRESSION: Normal CTA chest examination, without a demonstrated pulmonary embolism or arterial dissection. Electronically Signed: Markie Montes De Oca MD at 4:57 EDT , Service support ,
[2019-03-08 03:41] LABS: Differential Comment SCANNED
[2019-03-08 03:43] LABS: Alcohol, Blood (Medical)-Serum < 3.0 mg/dL
[2019-03-08 03:50] LABS: Color, Urine Yellow (Yellow); Glucose, Dipstick Normal (Normal); Ketone-Dipstick 5 mg/dl (Negative); Leukocyte Esterase-Dipstick 500 /ul (Negative); Nitrite-Dipstick Negative (Negative); Occult Blood-Urine 25 /ul (Negative); Protein-Dipstick 30 mg/dl (Negative); Urine Bilirubin Dipstick Negative (Negative); Urine Clarity Cloudy (Clear); Urine Urobilinogen Normal (Normal)
[2019-03-08 03:52] LABS: ALB/GLOB Ratio 0.7 RATIO (0.9-2.4); AST(SGOT) 21 U/L (15-37); Alanine Aminotransfer ALT/SGPT 26 U/L (13-56); Albumin, Serum 2.5 g/dL (3.2-5.0); Alkaline Phosphatase 63 U/L (45-117); Anion Gap 9 (5-15); BUN 18 mg/dL (7-18); BUN/Creat Ratio 16.2 RATIO (10-20); Calcium,Total 8.4 mg/dL (8.5-10.1); Chloride 104 mmol/L (98-107); Creatinine, Serum 1.11 mg/dL (0.55-1.02); EST Glomerular Filtration Rate 54 mL/min (>60); Est Glom Filt Rate - Afr Amer 65 mL/min (>60); Estimated Creatinine Clearance 46.26 ml/min; Globulin 3.7 g/dL (2.2-4.2); Glucose 111 mg/dL (74-106); Lactic Acid 1.2 mmol/L (0.4-2.0); Potassium 3.4 mmol/L (3.5-5.1); Protein, Total 6.2 g/dL (6.4-8.2); Sodium Level 137 mmol/L (136-145)
[2019-03-08 03:53] LABS: Bacteria 2+ /hpf (None Seen); Red Blood Cells-Urine 0-5 SEEN /hpf (0-5); Squamous Epithelial Cells - UA 5-10 SEEN /hpf (5-10); White Blood Cells 25-50 SEEN /hpf (0-5)
[2019-03-08 03:55] LABS: Amphetamine Urine VISTA NEGATIVE (<1000 ng/mL); Barbiturate Urine VISTA NEGATIVE (< 200 ng/mL); Benzodiazepine Urine VISTA NEGATIVE (< 200 ng/mL); Cocaine Urine VISTA POSITIVE (< 300 ng/mL); Ecstacy Urine VISTA NEGATIVE (< 500 ng/mL); Methadone Urine VISTA NEGATIVE (< 300 ng/mL); PCP Urine VISTA NEGATIVE (< 25 ng/mL); THC Urine VISTA POSITIVE (< 50 ng/mL); Vista UDS pH Range 5
[2019-03-08] MEDS: Ondansetron 4 MG/2 ML Vial IV (05:10)
--- NOTE | 2019-03-08 05:25 | HP.PCM_ITS ---
Problem List (1) Cutaneous lupus erythematosus Status: Chronic (2) Bipolar disorder Status: Chronic (3) Tobacco use disorder Status: Chronic (4) Syncope and collapse Status: Acute History of Present Illness Date of Admission: 03/08/19 Chief Complaint: syncope and fall The patient is a 58 year old F with a significant history of cutaneous lupus erythematosus; maniac disorder, bipolar, PTSD; tobacco abuse and polysubstance dependence who presented to the emergency department with an episode where she passed out and slipped out of her chair onto the ground. Reportedly she stopped breathing. She denies any prodromal symptoms of nausea and palpitations. She denies any episode of loss of bowel or bladder incontinence as well as seizure- like activity or biting of tongue with her syncopal episode. She reports that one hour before this episode she was smoking marijuana. Also she reported that she smoked crack cocaine a day before this. Emergency medical doctor reported that patient was denying that she used drugs until she was confronted with the fact of a positive urinary drug screen. Emergency Department doctor reported that when patient originally presented r to the emergency department she was pale and robins but later appeared more pink. Patient reported that her risperidone was increased about 2 to 3 weeks ago and this may be the cause of her passing out. However, she reported that about 5 months ago she passed out to. She reported that she has fallen a couple of times previously. Past Medical History Past Medical History (Chronic Problems): Chronic Problems Cutaneous lupus erythematosus (Chronic) Bipolar disorder (Chronic) Tobacco use disorder (Chronic) Allergies lithium [[place]] Allergy (Verified 03/05/19 14:24) Unknown nitrofurantoin [From Macrobid] Allergy (Verified 03/05/19 14:24) Janes Dillon Syndrome nitrofurantoin macrocrystalline [From Macrobid] Allergy (Verified 03/05/19 14:24) Janes Dillon Syndrome sulfamethoxazole [From Bactrim] Allergy (Verified 03/05/19 14:24) Janes Dillon Syndrome trimethoprim [From Bactrim] Allergy (Verified 03/05/19 14:24) Janes Dillon Syndrome Home Medications: Ambulatory Orders Medication Instructions Recorded Duloxetine Hcl [Cymbalta] 60 mg PO DAILY 08/09/13 Omeprazole [Prilosec] 20 mg PO BID 08/09/13 Divalproex Sodium [Depakote] 500 mg PO DAILY 12/24/13 Lorazepam [Ativan] 1 mg PO DAILY PRN PRN 12/24/13 Divalproex Sodium [Depakote] 1,000 mg PO QHS 08/02/14 Ibuprofen [Motrin] 800 mg PO TID PRN PRN #15 tablet 09/30/15 Benztropine [Cogentin] 1 mg PO BID 03/05/19 Risperidone 1 mg PO .COMPLEX 03/05/19 Surgical History: - - Tubal ligation; vaginal mesh. Psychiatric History: Bipolar, Depression Smoking Status: Current every day smoker Tobacco Use: Cigarettes - *Family History Maternal History Items: - - Patient does not know her maternal medical history. Paternal History Items: - - Patient does not know her paternal medical history. Review of Systems Constitutional: Denies: Chills, Fever, Weight Change HEENT: Denies: Head Aches, Sinus Congestion, Sinus Drainage Cardiovascular: Reports: Syncope. Denies: Chest Pain, Palpitations Respiratory: Denies: Cough, Shortness of breath at rest, Sputum production Gastrointestinal: Denies: Abdominal Pain, Nausea, Vomiting Genitourinary: Denies: Dysuria Musculoskeletal: Denies: Joint Pain, Joint Tenderness Skin: Denies: Rash, Wounds Neurological: Denies: Numbness, Tingling, Focal weakness Psychiatric: Denies: Anxiety, Depression, Homicidal Ideations, Suicidal Ideations Hematologic/ Lymphatic: Denies: Easy Bruising, Easy Bleeding VTE Information - Inpt Only VTE Present on Admission: No VTE Mechan Device Prophylaxis: None VTE Pharm Prophylaxis ordered?: Yes Patient Problems: Active and Suspected Problems Syncope and collapse (Acute) - Physical Exam General: Alert, Oriented x3, Cooperative HEENT: Atraumatic, PERRLA, EOMI, Normocephalic Neck: Supple, No JVD, Negative Carotid Bruits Lungs: Clear to auscultation, Normal air movement Cardiovascular: Regular rate, No murmurs Abdomen: Bowel Sounds Present, Soft, Non Tender Extremities: No edema, Capillary Refill Less than 3 Seconds Skin: No rashes, No breakdown Musculoskeletal: No Tenderness to Palpation of Joints or Extremities Neurological: Neuro grossly intact Psych/Mental Status: Anxious Vital Signs Temp Pulse Resp BP Pulse Ox 97.8 F 74 21 H 101/53 L 98 03/08/19 02:47 03/08/19 05:12 03/08/19 05:12 03/08/19 05:12 03/08/19 05:12 Oxygen Flow Rate (L/min) 2 Oxygen Delivery Method Room Air Weight: 84.9 kg Body Mass Index (BMI) 33.1 Finger Stick Blood Glucose 121 Laboratory Tests Past 24 Hrs 03/08/19 03/08/19 03/08/19 03:10 03:10 03:10 WBC 9.6 RBC 3.70 L Hgb 10.1 L Hct 31.2 L MCV 84.3 MCH 27.3 MCHC 32.4 RDW 14.8 H RDW Differential 44.4 H Plt Count 174 MPV 10.0 Immature Gran % (Auto) 1.000 H Neut % (Auto) 51.9 Lymph % (Auto) 23.6 Daniels % (Auto) 20.6 H Eos % (Auto) 2.7 Baso % (Auto) 0.2 Absolute Neuts (auto) 5.0 Absolute Lymphs (auto) 2.27 Total Counted Not Reportable Differential Comment SCANNED PT 14.6 INR 1.2 APTT 21.3 L D-Dimer Quant (PE/DVT) 0.75 H* Sodium 137 Potassium 3.4 L Chloride 104 Carbon Dioxide 24.0 Anion Gap 9 BUN 18 Creatinine 1.11 H Estim Creat Clear Calc 46.26 Est GFR (MDRD) Af Amer 65 Est GFR (MDRD) Non-Af 54 L BUN/Creatinine Ratio 16.2 Glucose 111 H Lactic Acid Calcium 8.4 L Total Bilirubin 0.40 AST 21 ALT 26 Alkaline Phosphatase 63 Troponin I < 0.015 Total Protein 6.2 L Albumin 2.5 L Globulin 3.7 Albumin/Globulin Ratio 0.7 L Urine Color Urine Clarity Urine pH Ur Specific [place] Urine Protein Urine Glucose (UA) Urine Ketones Urine Occult Blood Urine Nitrite Urine Bilirubin Urine Urobilinogen Ur Leukocyte Esterase Urine RBC Urine WBC Ur Squamous Epith Cells Urine Bacteria Urine Mucus Urine Test Urine Opiates Screen Urine Methadone Screen Ur Barbiturates Screen Ur Phencyclidine Scrn Ur Amphetamines Screen U Methamphetamin-MDMA U Benzodiazepines Scrn Urine Cocaine Screen U Cannabinoids Screen Ur Drug Screen Comment Ethyl Alcohol 03/08/19 03/08/19 03/08/19 03:10 03:10 03:22 WBC RBC Hgb Hct MCV MCH MCHC RDW RDW Differential Plt Count MPV Immature Gran % (Auto) Neut % (Auto) Lymph % (Auto) Daniels % (Auto) Eos % (Auto) Baso % (Auto) Absolute Neuts (auto) Absolute Lymphs (auto) Total Counted Differential Comment PT INR APTT D-Dimer Quant (PE/DVT) Sodium Potassium Chloride Carbon Dioxide Anion Gap BUN Creatinine Estim Creat Clear Calc Est GFR (MDRD) Af Amer Est GFR (MDRD) Non-Af BUN/Creatinine Ratio Glucose Lactic Acid 1.2 Calcium Total Bilirubin AST ALT Alkaline Phosphatase Troponin I Total Protein Albumin Globulin Albumin/Globulin Ratio Urine Color Urine Clarity Urine pH Ur Specific [place] Urine Protein Urine Glucose (UA) Urine Ketones Urine Occult Blood Urine Nitrite Urine Bilirubin Urine Urobilinogen Ur Leukocyte Esterase Urine RBC Urine WBC Ur Squamous Epith Cells Urine Bacteria Urine Mucus Urine Test Negative Urine Opiates Screen Urine Methadone Screen Ur Barbiturates Screen Ur Phencyclidine Scrn Ur Amphetamines Screen U Methamphetamin-MDMA U Benzodiazepines Scrn Urine Cocaine Screen U Cannabinoids Screen Ur Drug Screen Comment Ethyl Alcohol < 3.0 03/08/19 03/08/19 03:22 03:22 WBC RBC Hgb Hct MCV MCH MCHC RDW RDW Differential Plt Count MPV Immature Gran % (Auto) Neut % (Auto) Lymph % (Auto) Daniels % (Auto) Eos % (Auto) Baso % (Auto) Absolute Neuts (auto) Absolute Lymphs (auto) Total Counted Differential Comment PT INR APTT D-Dimer Quant (PE/DVT) Sodium Potassium Chloride Carbon Dioxide Anion Gap BUN Creatinine Estim Creat Clear Calc Est GFR (MDRD) Af Amer Est GFR (MDRD) Non-Af BUN/Creatinine Ratio Glucose Lactic Acid Calcium Total Bilirubin AST ALT Alkaline Phosphatase Troponin I Total Protein Albumin Globulin Albumin/Globulin Ratio Urine Color Yellow Urine Clarity Cloudy Urine pH 5.0 Ur Specific [place] 1.010 Urine Protein 30 H Urine Glucose (UA) Normal Urine Ketones 5 H Urine Occult Blood 25 H Urine Nitrite Negative Urine Bilirubin Negative Urine Urobilinogen Normal Ur Leukocyte Esterase 500 H Urine RBC 0-5 SEEN Urine WBC 25-50 SEEN Ur Squamous Epith Cells 5-10 SEEN Urine Bacteria 2+ Urine Mucus 0 SEEN Urine Test Urine Opiates Screen NEGATIVE Urine Methadone Screen NEGATIVE Ur Barbiturates Screen NEGATIVE Ur Phencyclidine Scrn NEGATIVE Ur Amphetamines Screen NEGATIVE U Methamphetamin-MDMA NEGATIVE U Benzodiazepines Scrn NEGATIVE Urine Cocaine Screen POSITIVE H U Cannabinoids Screen POSITIVE H Ur Drug Screen Comment Ethyl Alcohol POC Glucose 03/08/19 03:13 POC Glucose 121 H Assessment/Plan All Active Problems Syncope and collapse (Acute) The patient is a 58 year old F with a significant history of cutaneous lupus erythematosus; maniac disorder, bipolar, PTSD; and polysubstance dependence who presented to the emergency department with an episode where she passed out and slipped out of her chair onto the ground consistent with syncope and collapse. Syncope and collapse Etiology of her syncope is unclear at this time. Because of recent drug use it could be that she passed out from drug use. At the emergency department her blood pressure was on the low side with systolic blood pressure originally in the 90s. Received 1 L of normal saline the emergency department. We will continue maintenance fluid hydration. Orthostatic vitals ordered. Unlikely from orthostasis since apparently patient was sitting down in the [place] and she passed out. Patient had elevated d-dimer. CTPA did not show any embolus. Also, it not did show aortic dissection. CTPA was independently reviewed. I agree with radiologist interpretation. EKG showed NSR with rate in the 70s. We will get an echocardiogram. Admitted to progressive care unit on telemetry. Patient had an EEG on 12/02/2018 because of starring episode. The EEG was unremarkable. Will not repeat at this time. Acute cystitis Patient's is recently on ciprofloxacin for UTI. Reportedly she has taken 3 days of her ciprofloxacin; and she is left with 4 more days to complete. At the emergency department she was given ceftriaxone. While at the emergency department she reported strong urinary urgency for which she had to immediately get on the commode. Ciprofloxacin continued. PTSD/bipolar disorder Risperidone; Depakote and Cogentin continued. Ativan continued Cymbalta continued. Polysubstance abuse Patient reports use of marijuana and crack cocaine. Counselled Tobacco abuse Counselled Declined nicotine patch. DVT prophylaxis Subcutaneous Lovenox. Code Visit OBSV E&M: 45561 Initial observation care L3
[2019-03-08] MEDS: Ceftriaxone 1 GM/50 ML BAG IV (05:43)
--- NOTE | 2019-03-08 06:22 | ECHOD_ITS ---
Reason For Study: Syncope/Near Syncope Procedure This was a 2D Doppler, Color Flow transthoracic echocardiogram. Exam performed portable in patient room. Left Ventricle Normal size and thickness. The estimated ejection fraction is 65 %. Normal diastology for age. No regional wall motion abnormalities noted. Right Ventricle Normal size and thickness. Normal systolic function. Atria Normal left atrium. Normal right atrium. Normal atrial septum. Mitral Valve The mitral valve is structurally normal. No prolapse or stenosis seen. Mild (1+) mitral valve insufficiency. Tricuspid Valve Normal tricuspid valve. Trivial tricuspid valve insufficiency. Right ventricular systolic pressure estimated to be 30 mmHg. Aortic Valve Normal aortic valve. Trisinus/trileaflet aortic valve. Pulmonic Valve Normal pulmonic valve. Great Vessels Normal aortic root. Normal arch. Normal inferior vena cava. Inferior vena cava collapse with sniff. Pericardium/Pleural No pericardial effusion. MMode/2D Measurements & Calculations LVIDd: 4.6 cm IVSd: 0.94 cm Ao root diam: 2.8 cm LVIDs: 2.4 cm LVPWd: 0.74 cm RVDd: 2.8 cm FS: 48.5 % LAV(MOD-bp): 27.3 ml LVAd ap4: 22.3 cm2 SV(MOD-sp4): 39.1 ml LAV(MOD-bp) Indexed: 14.6 ml/m2 EDV(MOD-sp4): 56.7 ml LAV(MOD-sp2): 34.1 ml EDV(sp4-el): 57.2 ml LAV(MOD-sp4): 20.8 ml LVAs ap4: 10.9 cm2 ESV(MOD-sp4): 17.6 ml ESV(sp4-el): 17.4 ml EF(MOD-sp4): 69.0 % EF(sp4-el): 69.6 % SV(sp4-el): 39.8 ml LA A4 area: 11.1 cm2 LA dimension(2D): 4.3 cm RA A4 area: 12.6 cm2 Doppler Measurements & Calculations MV E max melchor: 88.7 cm/sec Lat Peak E' Melchor: 10.0 cm/sec Med Peak E' Melchor: 8.3 cm/sec MV A max melchor: 94.7 cm/sec E/E' lat: 8.9 E/E' med: 10.7 MV E/A: 0.94 Ao V2 max: 186.7 cm/sec LV V1 max: 141.9 cm/sec PA V2 max: 186.3 cm/sec Ao max P.9 mmHg LV V1 max P.1 mmHg PA V2 mean: 130.3 cm/sec Ao V2 mean: 140.6 cm/sec PA V2 VTI: 40.2 cm Ao mean P.6 mmHg Ao V2 VTI: 36.6 cm TR max melchor: 248.9 cm/sec TR max P.8 mmHg Interpretation Summary The estimated ejection fraction is 65 %. Normal diastology for age. Mild (1+) mitral valve insufficiency. Trivial tricuspid valve insufficiency. Right ventricular systolic pressure estimated to be 30 mmHg. Compared to echo report dated 02/07/2010, no appreciable changes noted. Ordering Physician: Nain Wray Referring Physician: Praveen Bates Performed By: Elisa Reese, JOAQUÍN, RVT
--- NOTE | 2019-03-08 06:37 | NURSING ---
Pt does not know meds/doses.
[2019-03-08] MEDS: 0.9% Normal Saline 1,000 ML 150 ML IV ×2 (07:50→14:58)
[2019-03-08] MEDS: Acetaminophen 325 MG Tablet 650 MG PO (07:50)
[2019-03-08] MEDS: 0.9% NaCl Peripheral Flush Adult/Peds IV (08:07)
[2019-03-08] MEDS: Ciprofloxacin 500 MG Tablet PO ×2 (09:47→21:07)
[2019-03-08] MEDS: Bisacodyl 5 MG Tablet PO (09:47)
[2019-03-08] MEDS: Divalproex Sodium 250 MG Tablet 500 MG PO (09:47)
[2019-03-08] MEDS: RisperiDONE 2 MG Tablet PO (09:47)
[2019-03-08] MEDS: Enoxaparin 40 MG/0.4 ML Syringe SC (09:47)
[2019-03-08] MEDS: Pantoprazole Sodium 20 MG Tablet PO ×2 (09:48→21:08)
--- NOTE | 2019-03-08 18:57 | PCM.HOSP.N ---
Hospitalist Note Patient was seen and examined today, patient was very somnolent and I had to awaken the patient several times even to have a brief discussion with her. She seemed to fall asleep even though I was talking to her. At this time, I do not feel comfortable with the patient going home being the somnolent, I have elected to stop her Depakote, Risperdal, and Ativan. I called her PCPs office and went over her known medications with the nurse there, it appears that the patient does not have Depakote listed as 1 of her medications. There is also no documentation of the patient following up with a psychiatrist. According to nursing, patient was a poor informant and had many of her medications confused. At this time, I will continue to observe the patient in the hospital and reevaluate her in the morning for possible discharge. Patient's echocardiogram today was unremarkable
[2019-03-09 02:59] VITALS: PULSE 72
[2019-03-09 03:30] VITALS: BP 114/49; PULSE 72; RESP 18; TEMP 37.1; O2SAT 97
[2019-03-09 05:31] VITALS: BP 114/70; BP 129/78; BP 140/78; PULSE 73; PULSE 75; PULSE 83
[2019-03-09 07:21] VITALS: O2SAT 93
[2019-03-09 07:40] VITALS: PULSE 67
[2019-03-09] MEDS: Enoxaparin 40 MG/0.4 ML Syringe SC (09:20)
[2019-03-09] MEDS: Pantoprazole Sodium 20 MG Tablet PO (09:20)
[2019-03-09] MEDS: Ciprofloxacin 500 MG Tablet PO (09:20)
[2019-03-09 09:22] VITALS: BP 105/52; PULSE 75; RESP 18; TEMP 36.9; O2SAT 97
--- NOTE | 2019-03-09 10:16 | PCM.DC ---
- Discharge Diagnoses Current Active Problems: Current Active and Chronic Problems Syncope and collapse (Acute) You will use the following diet at home:: No restrictions Your food should be the consistency of: Regular Your liquids should be the consistency of: Regular/Thin Discharge Activity: Return to Normal Activity Weight Bearing Status: Full weight bearing Allergies/Adverse Reactions: Allergies lithium [[place]] Allergy (Verified 03/05/19 14:24) Unknown nitrofurantoin [From Macrobid] Allergy (Verified 03/05/19 14:24) Janes Dillon Syndrome nitrofurantoin macrocrystalline [From Macrobid] Allergy (Verified 03/05/19 14:24) Janes Dillon Syndrome sulfamethoxazole [From Bactrim] Allergy (Verified 03/05/19 14:24) Janes Dillon Syndrome trimethoprim [From Bactrim] Allergy (Verified 03/05/19 14:24) Janes Dillon Syndrome Medications to take at Discharge Omeprazole [Prilosec] 20 mg PO BID 08/09/13 Divalproex Sodium [Depakote] 500 mg PO BID 12/24/13 Lorazepam [Ativan] 1 mg PO DAILY PRN PRN 12/24/13 Ibuprofen [Motrin] 800 mg PO TID PRN PRN #15 tablet 09/30/15 Benztropine [Cogentin] 1 mg PO BID PRN 03/05/19 Risperidone 2 mg PO BID 03/05/19 Dicyclomine HCl 10 mg PO TID 03/08/19 Meloxicam 15 mg PO DAILY 03/08/19 Ciprofloxacin [Cipro] 500 mg PO BID #8 tablet 03/09/19 The following prescriptions were given: Ciprofloxacin [Cipro] 500 mg PO BID #8 tablet Primary Care Physician: Praveen Bates III, MD [Primary Care Provider] - Please follow up with your Primary Care Physician in: in 2 weeks Test Results: Test results from this visit will be discussed in further detail at your follow-up appointment, if applicable.
--- NOTE | 2019-03-09 11:55 | NURSING ---
Reviewed and agreed on all charting with Benedicto Marin RN
--- NOTE | 2019-03-12 18:57 | DS.PCM_ITS ---
Discharge Date and Diagnosis Date of Admission: 03/08/19 Date of Discharge: 03/09/19 - Primary Discharge Diagnosis #1 syncope-etiology unknown #2 substance abuse #3 bipolar disorder #4 acute cystitis - Secondary Discharge Diagnosis Chronic Problems Cutaneous lupus erythematosus (Chronic) Bipolar disorder (Chronic) Tobacco use disorder (Chronic) Hospital Course and Treatment Operations: None Procedures: 2-D Echocardiogram Summary of Care Provided: The patient is a 58 year old F was seen in the emergency room at [facility] after suffering a syncopal episode at home, she had no injuries. Patient admitted to smoking marijuana and smoking crack cocaine a day before her episode. Work-up in the emergency room included a UA which indicated the patient had a urinary tract infection, d-dimer was high and a chest CTA was performed which revealed no pulmonary embolus, creatinine was slightly elevated at 1.1, CBC was unremarkable, patient's toxicology screen was positive for cocaine and cannabinoids. Patient was placed and observation status on PCU, cardiac enzymes were cycled and these remained normal, patient underwent a 2D echocardiogram which was unremarkable, she was given antibiotics for cystitis. Patient remained somnolent and there appeared to be a discrepancy in her medications according to what information obtained from her PCPs office. In talking further with the patient however, it appeared that the patient was seen a counselor and had been on additional medication. On 03/09/19, patient was seen and examined and felt to be in stable condition for discharge home: On examination she appeared in good health and spirits. Vital signs as documented. Skin warm and dry and without overt rashes. Neck without JVD. Lungs clear. Heart exam notable for regular rhythm, normal sounds and absence of murmurs, rubs or gallops. Abdomen unremarkable and without evidence of organomegaly, masses, or abdominal aortic enlargement. Extremities nonedematous. Neuro: Cranial nerves II through XII are grossly intact, no focal motor deficits were noted, sensation to light touch and pinprick is intact. Psych: Patient is alert and oriented x3, she does not appear anxious or depressed - Physical Exam Vital Signs Temp Pulse Resp BP Pulse Ox 98.4 F 75 18 105/52 L 97 03/09/19 09:22 03/09/19 09:22 03/09/19 09:22 03/09/19 09:22 03/09/19 09:22 Oxygen Flow Rate (L/min) 2 Oxygen Delivery Method Room Air Weight: 82.5 kg Body Mass Index (BMI) 32.2 Finger Stick Blood Glucose 121 Discharge Activity: Return to Normal Activity Weight Bearing Status: Full weight bearing Home Medications: Medications to take at Discharge Omeprazole [Prilosec] 20 mg PO BID 08/09/13 Divalproex Sodium [Depakote] 500 mg PO BID 12/24/13 Lorazepam [Ativan] 1 mg PO DAILY PRN PRN 12/24/13 Ibuprofen [Motrin] 800 mg PO TID PRN PRN #15 tablet 09/30/15 Benztropine [Cogentin] 1 mg PO BID PRN 03/05/19 Risperidone 2 mg PO BID 03/05/19 Dicyclomine HCl 10 mg PO TID 03/08/19 Meloxicam 15 mg PO DAILY 03/08/19 Ciprofloxacin [Cipro] 500 mg PO BID #8 tablet 03/09/19 Following Prescrptions Were Given to Patient: Ciprofloxacin [Cipro] 500 mg PO BID #8 tablet Primary Care Physician: Praveen Bates III, MD [Primary Care Provider] - Please follow up with your Primary Care Physician in: in 2 weeks Disposition: Home Minutes spent on discharge:: 32 Patient Condition:: Stable Medical Necessity - Tobacco Use Smoking Status: Current every day smoker Tobacco Use: Cigarettes Meaningful Use Info Meaningful Use Diagnoses (Choose all that apply): None applicable Code Visit OBSV E&M: 57298 Observation care discharge
== END 2019-03-09 10:18 | disposition home or self-care (01) ==
LOC: ED 03:44 → PCU 06:06
PROVIDERS: Admitting Provider Hospitalist; Emergency Provider Emergency Medicine; Family Provider Family Medicine; PCP Family Medicine; Visit Provider Internal Medicine
DX: R55 Syncope and collapse (principal); F31.9 Bipolar disorder, unspecified; N30.00 Acute cystitis without hematuria; L93.2 Other local lupus erythematosus; F12.10 Cannabis abuse, uncomplicated; F14.10 Cocaine abuse, uncomplicated; F43.10 Post-traumatic stress disorder, unspecified; Z79.899 Other long term (current) drug therapy; F17.210 Nicotine dependence, cigarettes, uncomplicated
CPT/HCPCS: 36415; 71045; 71275; 80053; 80307; 80320; 81001; 81025; 82962; 83605; 84484; 85025; 85379; 85610; 85730; 93005; 93306; 96361; 96365; 96366; 96372; 96375; 97161; 97165; 99218; 99285; J7030; Q9967; A4216; G0378; G0480; J2405

== ENCOUNTER 2019-08-12 10:21 | Emergency (ER) | payer MEDICAID, SELFPAY ==
[2019-03-08 06:31] VITALS: BMI 32.2
[2019-08-12 10:22] VITALS: BP 111/89; PULSE 91; RESP 16; TEMP 36.6; O2SAT 97; BMI 30.1
--- NOTE | 2019-08-12 10:33 | ED.DCSUM_ITS ---
- ER Visit Summary Date of Service: 08/12/19 Chief Complaint: Dysuria History of Present Illness: The patient is a 58 F who states she has a history of urinary tract infections. She tells me that she recently went to the urologist at [facility] was put on ampicillin. She has finished that course and states she still had symptoms 3 days ago so she went back to give another urine specimen. She has not heard back. She notes continued dysuria urinary frequency. She denies any hematuria, fevers, nausea or vomiting. Patient in [facility] system has had 3 cultures is growing out E. coli. The last from earlier this year was reviewed to obtain sensitivities. Physical Examination: Afebrile vital signs stable Gen: Well-nourished well-developed Head: Normocephalic atraumatic Eyes: Perrl EOMI ENT: TMs clear no rhinorrhea moist mucous membranes Neck: Supple no lymphadenopathy no JVD nontender CVS: Regular rate rhythm no murmurs normal S1-S2 Respiratory: No distress clear to auscultation bilaterally chest nontender Abdomen: Soft nontender nondistended normal bowel sounds no masses Back: Nontender Extremity: Nontender no edema Skin: Normal color no rash Neuro: alert orientated ?3 CN II-XII intact normal strength sensation Psych: Short tempered Emergency Department Course and Treatment: Urinalysis and culture will be sent. Patient will be started on Levaquin and Pyridium. She is to follow-up with her doctors Impression: 1. Acute cystitis This note was generated with [employer] dictation software. It may contain incorrect words, spelling, and punctuation that were not noted in review of the chart prior to signing ED Disposition - Plan for ED Patient: Disposition: Home or Assisted Living Instructions: Urinary Tract Infections in Women Prescriptions: Levofloxacin [Levaquin] 750 mg PO DAILY #5 tab Prescription Printed Phenazopyridine HCl [Pyridium] 200 mg PO TID #9 tab Prescription Printed Referrals: Praveen Bates III, MD [Primary Care Provider] - 3-5 Days if not improving
[2019-08-12 10:55] LABS: Mucous, Urine 0 SEEN /hpf (<or=2+); Squamous Epithelial Cells - UA 0 SEEN /hpf (5-10)
[2019-08-12 10:57] LABS: Color, Urine Yellow (Yellow); Glucose, Dipstick Normal (Normal); Ketone-Dipstick 5 mg/dl (Negative); Leukocyte Esterase-Dipstick 500 /ul (Negative); Nitrite-Dipstick Negative (Negative); Occult Blood-Urine 150 /ul (Negative); Protein-Dipstick 100 mg/dl (Negative); Specific Gravity, Urine 1.015 (1.002-1.030); Urine Bilirubin Dipstick Negative (Negative); Urine Clarity Cloudy (Clear); Urine Urobilinogen Normal (Normal)
[2019-08-12 11:03] LABS: Bacteria 2+ /hpf (None Seen); Red Blood Cells-Urine 0-5 SEEN /hpf (0-5); White Blood Cells 50-100 SEEN /hpf (0-5)
== END 2019-08-12 10:58 | disposition home or self-care (01) ==
LOC: ED 10:43
PROVIDERS: Emergency Provider Emergency Medicine; Family Provider Family Medicine; PCP Family Medicine
DX: N30.00 Acute cystitis without hematuria (principal); Z87.440 Personal history of urinary (tract) infections; F31.9 Bipolar disorder, unspecified; M32.9 Systemic lupus erythematosus, unspecified; Z79.899 Other long term (current) drug therapy; Z72.0 Tobacco use
CPT/HCPCS: 81001; 87086; 87088; 87186; 99282

== ENCOUNTER → 2019-09-13 20:10 | Outpatient (CLI) | payer MEDICAID, SELFPAY | PROVIDERS: Family Provider Family Medicine; PCP Family Medicine; Referring Provider Family Medicine; Visit Provider Family Medicine | DX: G47.10 Hypersomnia, unspecified (principal) | CPT/HCPCS: 95810 ==

== ENCOUNTER 2024-01-04 16:45 | Emergency (ER) | payer MEDICARE, MEDICAID, SELFPAY ==
[2024-01-04 16:46] VITALS: BP 136/78; PULSE 81; RESP 20; TEMP 36.6; O2SAT 96; BMI 36.1
[2024-01-04 17:08] VITALS: O2SAT 98
--- NOTE | 2024-01-04 17:08 | EX.ED.DYSGE1 ---
HPI History of Present Illness Chief Complaint: Shortness of Breath Informant: patient Narrative Narrative: Patient presents with shortness of breath for the past week. She reports that croupy cough for quite some time but really noted increased shortness of breath over the past week. She has a history of smoking and has an inhaler at home that she uses, but denies any formal diagnosis of COPD or asthma. She reportedly went to urgent care today where her oxygen saturation was 90% so they sent her to the emergency room. She denies fever or chills. [facility] Medical History (Updated 01/04/24 @ 19:[address] Maryann Bui MD) Bipolar disorder Cutaneous lupus erythematosus Tobacco use disorder Home Medications omeprazole 20 mg capsule,delayed release 20 mg PO BID 08/09/13 [History Last Taken 03/05/19] divalproex 250 mg tablet,delayed release 500 mg PO BID 12/24/13 [History Last Taken 03/05/19] lorazepam 1 mg tablet 1 mg PO DAILY PRN PRN Anxiety 12/24/13 [History Last Taken 03/04/19] Ibuprofen [Motrin] 800 mg PO TID PRN PRN Pain #15 tabs 09/30/15 [Rx Last Taken 03/04/19] benztropine 2 mg tablet 1 mg PO BID PRN Muscle Spasm 03/05/19 [History Last Taken 03/05/19] risperidone 1 mg tablet 2 mg PO BID 03/05/19 [History Last Taken 03/05/19] dicyclomine 10 mg capsule 10 mg PO TID 03/08/19 [History Last Taken Unknown] meloxicam 15 mg tablet 15 mg PO DAILY 03/08/19 [History Last Taken Unknown] ciprofloxacin HCl 500 mg tablet 500 mg PO BID ##8 03/09/19 [Rx Last Taken Unknown] levofloxacin 750 mg tablet 750 mg PO DAILY #5 tabs 08/12/19 [Rx Last Taken Unknown] phenazopyridine 200 mg tablet 200 mg PO TID #9 tabs 08/12/19 [Rx Last Taken Unknown] doxycycline monohydrate 100 mg capsule 100 mg PO BID #20 CAPSULES 01/04/24 [Rx Last Taken Unknown] prednisone 20 mg tablet 40 mg (2 x 20 mg) PO DAILY #8 tabs 01/04/24 [Rx Last Taken Unknown] Allergy/AdvReac Type Severity Reaction Status Date / Time lithium [[place]] Allergy Unknown Verified 01/04/24 16:48 nitrofurantoin Allergy Janes Verified 01/04/24 16:48 [From Macrobid] Dillon Syndrome nitrofurantoin Allergy Janes Verified 01/04/24 16:48 macrocrystalline Dillon [From Macrobid] Syndrome sulfamethoxazole Allergy Janes Verified 01/04/24 16:48 [From Bactrim] Dillon Syndrome trimethoprim [From Bactrim] Allergy Janes Verified 01/04/24 16:48 Dillon Syndrome Social History Smoking Status: Current every day smoker tobacco type: cigarettes ROS ROS ED Constitutional Constitutional ED: Denies chills or fever(s) Eyes Eyes: Denies discharge from eye(s) ENT ENT ED: Denies discharge from eye(s), rhinorrhea or sore throat Cardiovascular Cardiovascular: Denies chest pain or palpitations Respiratory/Chest Respiratory/Chest: Reports cough and dyspnea Gastrointestinal Gastrointestinal: Denies abdominal pain, nausea or vomiting Musculoskeletal Musculoskeletal: Denies back pain or extremity pain Integumentary Denies Abrasions or rash Neurologic Neurologic: Denies headache(s) or weakness Psychiatric Psychiatric: Denies anxiety or depression Allergic/Immunologic Allergic/Immunologic ED: Denies lip swelling or urticaria EXAM Physical Exam Const Vital Signs: 01/04/24 16:46 01/04/24 17:14 01/04/24 17:08 Temperature 98 F Temperature Source Temporal Pulse Rate 81 82 Respiratory Rate 20 H 20 H Respiratory Effort Short of Breath Respiratory Depth Normal Respiratory Pattern Normal Blood Pressure 136/78 H Blood Pressure Mean 97 Pulse Ox 96 Oxygen Delivery Method Room Air Room Air 01/04/24 18:26 Temperature Temperature Source Pulse Rate 89 Respiratory Rate 14 Respiratory Effort Respiratory Depth Respiratory Pattern Blood Pressure 112/79 Blood Pressure Mean 90 Pulse Ox 99 Oxygen Delivery Method Room Air Positive well nourished and well developed General Appearance ED: well developed HEENT Reports moist mucous membranes Eyes EOMs intact bilaterally Chest Wall inspection of chest normal and palpation of chest normal Resp normal respiratory effort Resp Narrative: Expiratory wheezes bilaterally. Cardio regular rate GI non-tender Palpation: soft Extremity normal to inspection Neuro oriented x3 and no sensory deficits noted Motor Exam: strength 5/5 throughout Psych mental status grossly normal Skin no rashes or lesions noted MDM MDM MDM Narrative Medical decision making narrative: Aerosols given along with a dose of prednisone. Chest x-ray obtained to evaluate for acute lung pathology, cardiac size, or mediastinal abnormality. Swab for COVID, influenza, and RSV will be obtained. Radiography Diagnostic Testing: Clinical Impression(s) from Imaging Studies Chest X-Ray 01/04/24 17:56 IMPRESSION: No acute chest disease. Probable mild COPD and mild fibrosis. Electronically Signed: Jesus Manuel Miles MD at 18:34 EST , Treatment and Re-Evaluation :: 2 view chest x-ray per my interpretation reveals no focal infiltrate. Radiology interpretation reviewed and agrees. Swab for COVID, influenza, and RSV is negative. On repeat evaluation patient still has a frequent cough, however lung sounds are significantly improved. She will be given albuterol inhaler here with a spacer. I will write her prescription for prednisone along with doxycycline. Return instructions provided. Discharge Plan Triage Chief Complaint: Shortness of Breath ED Provider: Maryann Bui Dx/Rx/DC Orders Clinical Impression: Bronchospasm, Bronchitis Instructions: ED Bronchospasm (Adult), ED Bronchitis with Wheezing (Adult) Prescriptions: New doxycycline monohydrate 100 mg capsule 100 mg PO BID Qty: 20 0RF prednisone 20 mg tablet 40 mg PO DAILY Qty: 8 0RF No Action omeprazole 20 MG capsule 20 mg PO BID Patient Comments: decrease stomach acid divalproex 250 MG tablet 500 mg PO BID Patient Comments: bipolar lorazepam 1 MG tablet 1 mg PO DAILY PRN PRN (Reason: Anxiety) Patient Comments: anxiety Ibuprofen [Motrin] 800 MG tablet 800 mg PO TID PRN PRN (Reason: Pain) Qty: 15 0RF benztropine 2 MG tablet 1 mg PO BID PRN (Reason: Muscle Spasm) risperidone 1 MG tablet 2 mg PO BID Rx Instructions: meloxicam 15 MG tablet 15 mg PO DAILY dicyclomine 10 MG capsule 10 mg PO TID ciprofloxacin HCl 500 MG tablet 500 mg PO BID Qty: 8 0RF levofloxacin 750 MG tablet 750 mg PO DAILY Qty: 5 0RF phenazopyridine 200 MG tablet 200 mg PO TID Qty: 9 0RF Primary Care Provider: Cecil Gongora Referrals: Cecil Gongora MD [Primary Care Provider] - 1 Week Disposition Disposition: Home, Self Care
[2024-01-04] MEDS: Ipratropium/Albuterol Sulfate 3 ML AMPUL.NEB INHALATION (17:12)
[2024-01-04] MEDS: Albuterol 2.5 MG/3 ML VIAL.NEB. INHALATION ×2 (17:12)
[2024-01-04 17:14] VITALS: PULSE 82; RESP 20
[2024-01-04] MEDS: predniSONE 20 MG Tablet 60 MG PO (17:32)
--- NOTE | 2024-01-04 17:56 | RAD_ITS ---
STUDY: X-RAY CHEST REASON FOR EXAM: Female, 63 years old. sob, cough TECHNIQUE: Frontal and lateral views of the chest. COMPARISON: 03/08/2019. FINDINGS: The lungs are hyperexpanded. There are coarsened interstitial markings suggestive of mild chronic fibrosis. No gross focal infiltrates. No gross effusions. Normal size heart. Normal mediastinum and paul. Normal visualized pulmonary arteries. Normal visualized aortic arch and descending thoracic aorta. Normal visualized thoracic spine. Normal visualized ribs, clavicles, and shoulders. There is no demonstrated abnormality of the visualized soft tissue structures of the upper abdomen. RAD/Chest PA and Lateral IMPRESSION: No acute chest disease. Probable mild COPD and mild fibrosis. Electronically Signed: Jesus Manuel Miles MD at 18:34 EST ,
[2024-01-04 18:26] VITALS: BP 112/79; PULSE 89; RESP 14; O2SAT 99
[2024-01-04] MEDS: Doxycycline 100 MG CAPSULE PO (19:51)
[2024-01-04] MEDS: INHALER, ASSIST DEVICES 1 EACH SPACER INHALATION (19:51)
[2024-01-04] MEDS: Albuterol Sulfate 8 gm Inhaler (60 puffs) 2 PUFF INHALATION (19:51)
[2024-01-04 19:53] VITALS: BP 149/73; PULSE 74; RESP 12; TEMP 36.6; O2SAT 96
== END 2024-01-04 19:55 | disposition home or self-care (01) ==
PROVIDERS: Emergency Provider Emergency Medicine; PCP Family Medicine; Visit Provider Emergency Medicine
DX: J98.01 Acute bronchospasm (principal); J40 Bronchitis, not specified as acute or chronic; F17.210 Nicotine dependence, cigarettes, uncomplicated
CPT/HCPCS: 71046; 87631; 94640; 99283

== ENCOUNTER 2024-10-11 13:21 | Emergency (ER) | payer MEDICARE, SELFPAY ==
[2024-10-11 13:23] VITALS: BP 154/69; PULSE 87; RESP 25; TEMP 36.4; O2SAT 96; BMI 38.0
--- NOTE | 2024-10-11 14:29 | EKG12_ITS ---
Test Reason : SOB Blood Pressure : */* mmHG Vent. Rate : 72 BPM Atrial Rate : 72 BPM P-R Int : 140 ms QRS Dur : 100 ms QT Int : 410 ms P-R-T Axes : 47 -1 35 degrees QTcB Int : 448 ms Sinus rhythm with Premature atrial complexes Incomplete right bundle branch block Borderline ECG Confirmed by Tad Tilley ([id number]), department editor SMOOTH LEIJA ([id number]) on 10/12/2024 1:09:11 PM Referred By: Confirmed By: Tad Tilley
[2024-10-11 14:47] VITALS: O2SAT 94
--- NOTE | 2024-10-11 15:09 | CT_ITS ---
STUDY: CTA CHEST REASON FOR EXAM: Female, 63 years old. dyspnea RADIATION DOSAGE (If Supplied By Facility): CTDIvol = ( 13.62 ) mGy, DLP = ( 433.91 ) mGycm TECHNIQUE: The examination was performed with the intravenous administration of IV 100mL Isovue-370. Post-processing of the angiographic images was performed, with multiplanar reformation and 3D reconstruction. Individualized dose optimization techniques were used for this CT. COMPARISON: March 08, 2019. FINDINGS: Normal enhancement of the main pulmonary artery and right and left pulmonary arteries. Normal enhancement of the bilateral peripheral pulmonary arteries. There is no demonstrated pulmonary embolism. Minor atherosclerotic changes of the aorta without evidence for aneurysm. There is no demonstrated aortic dissection. Normal heart and pericardium. Mild coronary artery calcification Normal mediastinum. Mildly enlarged right hilar nodes measuring 1.6 x 1.1 and 1.3 x 1.3 cm of uncertain etiology or clinical significance. Normal visualized trachea and bronchi. There is very mild bilateral subpleural interstitial thickening more pronounced in the lower lobes. There is also a pleural-based mass or masslike consolidative density measuring approximately 5.5 x 3.98 cm Normal pulmonary parenchyma. Normal pleura. Normal chest wall structures. Normal osseous structures. Moderate-sized hiatal hernia noted Normal visualized upper abdomen. CT/CTA Chest W/WO Contrast IMPRESSION: Mild multifocal subpleural interstitial thickening likely chronic Pleural-based mass or masslike consolidative density in the right lower lobe with associated mildly enlarged nodes which are new finding since prior exam. Possibility of neoplasm not excluded although this may represent inflammatory disease.. Clinical correlation recommended and follow-up studies. No evidence for pulmonary embolus Electronically Signed: Yogi Chan MD at 17:12 EST ,
--- NOTE | 2024-10-11 15:11 | ED.VIS.DYS ---
HPI History of Present Illness Chief Complaint: Shortness of Breath Detail of Chief Complaint: Shortness of breath Informant: patient Narrative Narrative: Patient presents with shortness of breath that started over a year ago. She was seen in urgent care 2 days ago and had a chest x-ray and diagnosed with a UTI. She states she gets frequent UTIs. For about 3 weeks she has had a lot of fatigue and sleeping more and nausea and just not feeling well. Chest x-ray showed an abnormality and she was called today and told to come to the ER to get a CAT scan to rule out a PE. Patient denies recent travel or surgery. She denies any chest pain currently but intermittently will have some chest pressure that does not seem to be exertional. Patient states that she follows with a public administration professor and has had some CT scans without contrast last 1 being in August. She is never had a history of a PE. Patient is a smoker. [facility] Medical History (Updated 10/11/24 @ 17:[address] Chandni Malik, ) Cutaneous lupus erythematosus Bipolar disorder Tobacco use disorder Home Medications ?Medication ?Instructions ?Recorded ?Last Taken ?Type omeprazole 20 mg capsule,delayed 20 mg PO BID 08/09/13 03/05/19 History release divalproex 250 mg tablet,delayed 500 mg PO BID 12/24/13 03/05/19 History release lorazepam 1 mg tablet 1 mg PO DAILY PRN PRN Anxiety 12/24/13 03/04/19 History Ibuprofen [Motrin] 800 mg PO TID PRN PRN Pain #15 tabs 09/30/15 03/04/19 Rx benztropine 2 mg tablet 1 mg PO BID PRN Muscle Spasm 03/05/19 03/05/19 History risperidone 1 mg tablet 2 mg PO BID 03/05/19 03/05/19 History dicyclomine 10 mg capsule 10 mg PO TID 03/08/19 Unknown History meloxicam 15 mg tablet 15 mg PO DAILY 03/08/19 Unknown History ciprofloxacin HCl 500 mg tablet 500 mg PO BID ##8 03/09/19 Unknown Rx levofloxacin 750 mg tablet 750 mg PO DAILY #5 tabs 08/12/19 Unknown Rx phenazopyridine 200 mg tablet 200 mg PO TID #9 tabs 08/12/19 Unknown Rx doxycycline monohydrate 100 mg 100 mg PO BID #20 CAPSULES 01/04/24 Unknown Rx capsule prednisone 20 mg tablet 40 mg (2 x 20 mg) PO DAILY #8 tabs 01/04/24 Unknown Rx levofloxacin 750 mg tablet 750 mg PO DAILY #6 tabs 10/11/24 Unknown Rx Allergy/AdvReac Type Severity Reaction Status Date / Time lithium ([place]) Allergy Unknown Verified 10/11/24 13:23 nitrofurantoin (From Allergy Janes Verified 10/11/24 13:23 Macrobid) Dillon Syndrome nitrofurantoin Allergy Janes Verified 10/11/24 13:23 macrocrystalline (From Dillon Macrobid) Syndrome sulfamethoxazole (From Allergy Janes Verified 10/11/24 13:23 Bactrim) Dillon Syndrome trimethoprim (From Bactrim) Allergy Janes Verified 10/11/24 13:23 Dillon Syndrome Social History Smoking Status: Current every day smoker tobacco type: cigarettes ROS ROS ED Review of Systems ROS Unobtainable: other Constitutional Constitutional ED: Reports lethargy; Denies chills, fever(s), sweats or weight loss Eyes Eyes: Denies blurry vision, change in vision or diplopia ENT ENT ED: Denies rhinorrhea or sore throat Cardiovascular Cardiovascular: Reports chest pain; Denies orthopnea or racing heartbeat Respiratory/Chest Respiratory/Chest: Reports cough, dyspnea and dyspnea on exertion; Denies orthopnea or sputum Gastrointestinal Gastrointestinal: Reports nausea; Denies abdominal pain, diarrhea or vomiting Genitourinary Genitourinary ED: Denies dysuria, hematuria or urinary frequency Musculoskeletal Musculoskeletal: Denies arthralgias, back pain, myalgias or neck pain Integumentary Denies abscess, Abrasions or rash Neurologic Neurologic: Reports weakness; Denies headache(s) Psychiatric Psychiatric: Denies anxiety, depression or suicidal thoughts Endocrine Endocrinology: Denies polydipsia, polyphagia or polyuria Hematologic/Lymphatic Hematologic/Lymphatic: Denies easy bleeding, easy bruising or lymphadenopathy Allergic/Immunologic Allergic/Immunologic ED: Denies mouth swelling, tongue swelling or urticaria EXAM Physical Exam Const Vital Signs: 10/11/24 13:23 10/11/24 14:47 10/11/24 14:47 Temperature 97.5 F L Temperature Source Oral Pulse Rate 87 Respiratory Rate 25 H Respiratory Effort Respiratory Depth Respiratory Pattern Blood Pressure 154/69 H Blood Pressure Mean 97 Pulse Ox 96 94 Oxygen Delivery Method Room Air Room Air 10/11/24 15:53 10/11/24 16:11 10/11/24 16:36 Temperature Temperature Source Pulse Rate 71 Respiratory Rate 18 Respiratory Effort Normal Non-Labored Respiratory Depth Normal Respiratory Pattern Normal Blood Pressure 144/77 H Blood Pressure Mean 99 Pulse Ox 98 97 Oxygen Delivery Method Room Air Room Air Room Air Positive well nourished and well developed General Appearance ED: well developed and NAD HEENT Reports TM's clear and moist mucous membranes normocephalic and atraumatic; Negative for trauma or tenderness Tympanic Membrane ED: Yes TM's clear Eyes PERRL and EOMs intact bilaterally General Eye ED: Negative for pale conjunctiva or scleral icterus Neck no lymphadenopathy, supple and no JVD General: Negative for tenderness Chest Wall inspection of chest normal and palpation of chest normal Chest: Negative for tenderness Resp normal respiratory effort and clear to auscultation bilaterally Effort and Inspection: Negative for respiratory distress or pain with movement Auscultation: Negative for rhonchi, wheezes or diminished lung sounds Cardio regular rate, regular rhythm, S1 normal heart sound, S2 normal heart sound and no murmurs Peripheral Pulses: pulses 2+ throughout GI normal to inspection, nondistended, normoactive bowel sounds, soft to palpation, non-tender, non-distended and no masses Back/Spine no CVA tenderness and no thoracic nor lumbar tenderness Extremity normal to inspection General Extremety ED: Negative for edema General Extremity: Negative for edema Neuro oriented x3, CN's II-XII intact bilaterally, no sensory deficits noted and gait normal Sensorium / Orientation: awake, alert, oriented to person, oriented to place and oriented to time Motor Exam: strength 5/5 throughout and strength abnormal Psych mental status grossly normal Skin no rashes or lesions noted and no wounds MDM MDM MDM Narrative Medical decision making narrative: Patient presents the emergency department at the request of urgent care for evaluation for pulmonary embolus as her chest x-ray was abnormal. Patient gives history of 3 weeks of cough and fatigue and not feeling well. She tells me in July she had a CAT scan of her chest that showed some pulmonary nodules and she was able to pull up that result for me in her [employer] account. Also diagnosed with a UTI 3 days ago and was started on Cipro. She has not had any fevers. She not had recent travel or surgery. IV line established. CBC with differential white count of 14.5 with hemoglobin 10.7 and platelet count of 404. Chemistries unremarkable. EKG obtained arrival showed a sinus rhythm with ventricular rate of 72 bpm with incomplete right bundle branch block. Troponin was normal at 9 and BNP was normal at 41. Urinalysis was unremarkable. I did obtain a CTA of the chest that showed interstitial thickening likely chronic pleural-based mass or masslike consolidative density in the right lower lobe with associated mildly enlarged nodes which are new finding since prior exam from 2018. Possibility of neoplasm not excluded although this may represent inflammatory disease. Patient was started on prednisone 3 days ago this may explain her elevated WBC count. Will start patient on Levaquin for concern for possible pneumonia given these new findings that are significantly different than findings from the report of CT in July 2024. Patient clinically looks well and I do not think she needs admission. She is hemodynamically stable and she is not hypoxic. Will treat with Levaquin and advised to follow-up with her public administration professor within the next 3 to 5 days. Lab Data Attestation: I reviewed the patient's lab results. Labs: Laboratory Results - last 24 hr 10/11/24 10/11/24 15:40 16:06 WBC 14.5 H RBC 4.38 Hgb 10.7 L Hct 34.9 L MCV 79.7 L MCH 24.4 L MCHC 30.7 L RDW Std Deviation 52.0 H RDW Coeff of [place] 18.1 H Plt Count 404 MPV 9.3 Immature Gran % (Auto) 1.400 H Neut % (Auto) 67.2 Lymph % (Auto) 21.5 [place] % (Auto) 8.4 Eos % (Auto) 1.0 Baso % (Auto) 0.5 Absolute Neuts (auto) 9.7 H Absolute Lymphs (auto) 3.11 Nucleated RBC % 0 Sodium 139 Potassium 3.5 Chloride 103 Carbon Dioxide 30.0 Anion Gap 6 BUN 35 H Creatinine 0.93 Estim Creat Clear Calc 69.75 Est GFR (MDRD) Af Amer 79 Est GFR (MDRD) Non-Af 65 BUN/Creatinine Ratio 37.8 H Glucose 122 H Calcium 9.7 Troponin I High Sens 9 B-Natriuretic Peptide 41.1 Urine Color Yellow Urine Clarity Clear Urine pH 6.0 Ur Specific [place] 1.025 Urine Protein 15 H Urine Glucose (UA) Normal Urine Ketones Negative Urine Occult Blood Negative Urine Nitrite Negative Urine Bilirubin Negative Urine Urobilinogen Normal Ur Leukocyte Esterase 25 H Urine RBC 0 SEEN Urine WBC 5-10 SEEN Ur Squamous Epith Cells 5-10 SEEN Ur Renal Epithelial Cell 0-5 SEEN Urine Bacteria RARE Urine Mucus 0 SEEN Radiography Diagnostic Testing: Clinical Impression(s) from Imaging Studies Chest CTA 10/11/24 15:09 IMPRESSION: Mild multifocal subpleural interstitial thickening likely chronic Pleural-based mass or masslike consolidative density in the right lower lobe with associated mildly enlarged nodes which are new finding since prior exam. Possibility of neoplasm not excluded although this may represent inflammatory disease.. Clinical correlation recommended and follow-up studies. No evidence for pulmonary embolus Electronically Signed: Yogi Chan MD at 17:12 EST Reading Location ID and State: [facility] / [place] Tel , Service support , EKG Initial EKG: Attestation: I personally reviewed and interpreted this EKG as follows: Comments: Sinus rhythm with rate of 72 bpm with incomplete right bundle branch block Discharge Plan Triage Chief Complaint: Shortness of Breath ED Provider: Chandni Malik Dx/Rx/DC Orders Clinical Impression: Pneumonia Instructions: ED Pneumonia (Adult) Prescriptions: New levofloxacin 750 mg tablet 750 mg PO DAILY Qty: 6 0RF No Action omeprazole 20 MG capsule 20 mg PO BID Patient Comments: decrease stomach acid divalproex 250 MG tablet 500 mg PO BID Patient Comments: bipolar lorazepam 1 MG tablet 1 mg PO DAILY PRN PRN (Reason: Anxiety) Patient Comments: anxiety Ibuprofen [Motrin] 800 MG tablet 800 mg PO TID PRN PRN (Reason: Pain) Qty: 15 0RF benztropine 2 MG tablet 1 mg PO BID PRN (Reason: Muscle Spasm) risperidone 1 MG tablet 2 mg PO BID Rx Instructions: meloxicam 15 MG tablet 15 mg PO DAILY dicyclomine 10 MG capsule 10 mg PO TID ciprofloxacin HCl 500 MG tablet 500 mg PO BID Qty: 8 0RF levofloxacin 750 MG tablet 750 mg PO DAILY Qty: 5 0RF phenazopyridine 200 MG tablet 200 mg PO TID Qty: 9 0RF doxycycline monohydrate 100 mg capsule 100 mg PO BID Qty: 20 0RF prednisone 20 mg tablet 40 mg PO DAILY Qty: 8 0RF Primary Care Provider: Cecil Gongora Referrals: Cecil Gongora MD [Primary Care Provider] - Activity Restrictions/Additional Instructions: Follow-up with your public administration professor within the next 3 to 5 days. Print Language: Syrian
[2024-10-11 15:51] LABS: Absolute Lymphocyte Count 3.11 X10^3/uL (0.83-4.51); Absolute Neutrophil Count 9.7 X10^3/uL (2.0-7.7); Basophil# 0.07 X10^3/uL; Basophil% 0.5 % (0-1); Eosinophil# 0.15 X10^3/uL; Hematocrit 34.9 % (37-47); Hemoglobin 10.7 g/dL (12.0-15.0); Lymphocyte # 3.11 X10^3/ul (0.83-4.51); Lymphocyte % 21.5 % (19-41); Mean Corp Hgb Conc 30.7 g/dL (32-36); Mean Corpuscular Hgb 24.4 pg (27.0-32.0); Mean Corpuscular Volume 79.7 fL (81-99); Mean Platelet Vol. 9.3 fl (6.2-12.0); Monocyte# 1.21 X10^3/uL; Monocyte% 8.4 % (0-10); NRBC Flagged by Analyzer 0 % (0-5); Neutrophil # 9.71 X10^3/uL (2.7-7.7); Neutrophil % 67.2 % (47-70); Platelet Count 404 K/mm3 (150-450); RBC Distribution Width CV 18.1 % (11.6-14.6); Red Blood Count 4.38 M/mm3 (4.2-5.4); White Blood Count 14.5 K/mm3 (4.4-11.0)
[2024-10-11 15:53] VITALS: O2SAT 98
[2024-10-11 16:11] VITALS: BP 144/77; PULSE 71; RESP 18; O2SAT 97
[2024-10-11 16:14] LABS: Mucous, Urine 0 SEEN /hpf (<or=2+); Red Blood Cells-Urine 0 SEEN /hpf (0-5)
[2024-10-11 16:14] LABS: Anion Gap 6 (5-15); BUN 35 mg/dL (7-18); BUN/Creat Ratio 37.8 RATIO (10-20); Calcium,Total 9.7 mg/dL (8.5-10.1); Chloride 103 mmol/L (98-107); Creatinine, Serum 0.93 mg/dL (0.55-1.02); EST Glomerular Filtration Rate 65 mL/min (>60); Est Glom Filt Rate - Afr Amer 79 mL/min (>60); Estimated Creatinine Clearance 69.75 ml/min; Glucose 122 mg/dL (74-106); Potassium 3.5 mmol/L (3.5-5.1); Sodium Level 139 mmol/L (136-145); Troponin-I HS 9 pg/mL (3.0-54.0)
[2024-10-11 16:20] LABS: Color, Urine Yellow (Yellow); Glucose, Dipstick Normal (Normal); Ketone-Dipstick Negative (Negative); Leukocyte Esterase-Dipstick 25 /ul (Negative); Nitrite-Dipstick Negative (Negative); Occult Blood-Urine Negative /ul (Negative); Protein-Dipstick 15 mg/dl (Negative); Specific Gravity, Urine 1.025 (1.002-1.030); Urine Bilirubin Dipstick Negative (Negative); Urine Clarity Clear (Clear); Urine Urobilinogen Normal (Normal)
[2024-10-11 16:28] LABS: BNP,B-Type NATRIURETIC PEPTIDE 41.1 pg/mL (0-100)
[2024-10-11 16:36] VITALS: O2SAT 96
[2024-10-11 16:36] LABS: Renal Epithelial Cells 0-5 SEEN /hpf (0-5); Squamous Epithelial Cells - UA 5-10 SEEN /hpf (5-10); White Blood Cells 5-10 SEEN /hpf (0-5)
[2024-10-11 16:37] LABS: Bacteria RARE /hpf (None Seen)
[2024-10-11 17:39] VITALS: BP 118/85; PULSE 75; RESP 16; TEMP 36.7; O2SAT 98
[2024-10-11] MEDS: levoFLOXacin 750 MG Tablet PO (17:39)
== END 2024-10-11 17:48 | disposition home or self-care (01) ==
PROVIDERS: Emergency Provider Emergency Medicine; PCP Family Medicine; Visit Provider Emergency Medicine
DX: J18.9 Pneumonia, unspecified organism (principal); F17.210 Nicotine dependence, cigarettes, uncomplicated
CPT/HCPCS: 71275; 80048; 81001; 83880; 84484; 85025; 93005; 94760; 99284; Q9967

== ENCOUNTER 2024-12-16 13:54 | Emergency (ER) | payer MEDICARE, MEDICAID, SELFPAY ==
[2024-12-16 13:54] VITALS: BP 150/98; PULSE 85; RESP 18; TEMP 36.5; O2SAT 99; BMI 38.7
[2024-12-16 14:25] LABS: Absolute Lymphocyte Count 2.25 X10^3/uL (0.83-4.51); Absolute Neutrophil Count 2.5 X10^3/uL (2.0-7.7); Basophil# 0.01 X10^3/uL; Basophil% 0.2 % (0-1); Eosinophil# 0.29 X10^3/uL; Hematocrit 39.4 % (37-47); Lymphocyte # 2.25 X10^3/ul (0.83-4.51); Lymphocyte % 39.1 % (19-41); Mean Corp Hgb Conc 30.5 g/dL (32-36); Mean Corpuscular Hgb 24.1 pg (27.0-32.0); Mean Corpuscular Volume 79.1 fL (81-99); Mean Platelet Vol. 9.3 fl (6.2-12.0); Monocyte# 0.69 X10^3/uL; NRBC Flagged by Analyzer 0 % (0-5); Neutrophil # 2.47 X10^3/uL (2.7-7.7); Platelet Count 241 K/mm3 (150-450); RBC Distribution Width CV 18.9 % (11.6-14.6); RBC Distribution Width SD 53.1 fl (35.1-43.9); Red Blood Count 4.98 M/mm3 (4.2-5.4); White Blood Count 5.8 K/mm3 (4.4-11.0)
[2024-12-16 14:40] LABS: ALB/GLOB Ratio 0.8 RATIO (0.9-2.4); AST(SGOT) 17 U/L (15-37); Alanine Aminotransfer ALT/SGPT 18 U/L (13-56); Albumin, Serum 3.4 g/dL (3.2-5.0); Alkaline Phosphatase 78 U/L (45-117); Anion Gap 8 (5-15); BUN 19 mg/dL (7-18); Calcium,Total 9.4 mg/dL (8.5-10.1); Chloride 108 mmol/L (98-107); EST Glomerular Filtration Rate 60 mL/min (>60); Est Glom Filt Rate - Afr Amer 72 mL/min (>60); Globulin 4.4 g/dL (2.2-4.2); Glucose 137 mg/dL (74-106); Potassium 4.2 mmol/L (3.5-5.1); Protein, Total 7.8 g/dL (6.4-8.2); Sodium Level 139 mmol/L (136-145)
--- NOTE | 2024-12-16 14:43 | EX.ED.DYSGE1 ---
HPI History of Present Illness Chief Complaint: General Illness Detail of Chief Complaint: Has not felt well for 2 weeks and now having diarrhea with blood Informant: patient and spouse/S.O. Onset/Context/Timing Onset: Weeks (Generalized illness starting 2 weeks ago, diarrhea starting last evening) Context: Onset with activity Timing: Continuous and Waxes and wanes Quality: Mild congestion, nonproductive cough, wheezing Location: Respiratory now GI Current Severity: Mild Maximum Severity: Moderate Worsened by: Nothing per patient Relieved by: Nothing Associated Symptoms Associated Symptoms: No complaint of fever or chills. Narrative Narrative: Patient is a 64-year-old female with history of COPD, depression, arthritis who presents with generalized illness that started 2 weeks ago predominantly respiratory. She denies headache, she denies double vision blurred vision loss of vision. [place] photophobia, neck pain neck stiffness. She denies ear pain or ear discharge. She does have a cough which is essentially nonproductive. She does have a history of COPD. She admits to smoking 1/2 pack/day. Patient complains of some intermittent cramping pain. She denies nausea or vomiting. She states diarrhea started last evening. She noted mucus and blood in her diarrhea. She does have a history of hemorrhoids. She reports bright red blood per rectum. She denies rectal pain. She also believes she has urinary tract infection with frequency. She denies dysuria or hematuria. She denies rash, myalgias arthralgias. Denies joint swelling. Prior similar symptoms: Yes (Recent diagnosis of UTI) Recent Illness/Hospitalization: No [facility] Medical History Cutaneous lupus erythematosus Bipolar disorder Tobacco use disorder Home Medications ?Medication ?Instructions ?Recorded ?Last Taken ?Type omeprazole 20 mg capsule,delayed 20 mg PO BID 08/09/13 03/05/19 History release divalproex 250 mg tablet,delayed 500 mg PO BID 12/24/13 03/05/19 History release lorazepam 1 mg tablet 1 mg PO DAILY PRN PRN Anxiety 12/24/13 03/04/19 History Ibuprofen [Motrin] 800 mg PO TID PRN PRN Pain #15 tabs 09/30/15 03/04/19 Rx benztropine 2 mg tablet 1 mg PO BID PRN Muscle Spasm 03/05/19 03/05/19 History risperidone 1 mg tablet 2 mg PO BID 03/05/19 03/05/19 History dicyclomine 10 mg capsule 10 mg PO TID 03/08/19 Unknown History meloxicam 15 mg tablet 15 mg PO DAILY 03/08/19 Unknown History ciprofloxacin HCl 500 mg tablet 500 mg PO BID ##8 03/09/19 Unknown Rx levofloxacin 750 mg tablet 750 mg PO DAILY #5 tabs 08/12/19 Unknown Rx phenazopyridine 200 mg tablet 200 mg PO TID #9 tabs 08/12/19 Unknown Rx doxycycline monohydrate 100 mg 100 mg PO BID #20 CAPSULES 01/04/24 Unknown Rx capsule prednisone 20 mg tablet 40 mg (2 x 20 mg) PO DAILY #8 tabs 01/04/24 Unknown Rx levofloxacin 750 mg tablet 750 mg PO DAILY #6 tabs 10/11/24 Unknown Rx cephalexin 500 mg capsule 500 mg PO Q6 #28 CAPSULES 12/16/24 Unknown Rx Allergy/AdvReac Type Severity Reaction Status Date / Time lithium ([place]) Allergy Unknown Verified 12/16/24 13:56 nitrofurantoin (From Allergy Janes Verified 12/16/24 13:56 Macrobid) Dillon Syndrome nitrofurantoin Allergy Janes Verified 12/16/24 13:56 macrocrystalline (From Dillon Macrobid) Syndrome sulfamethoxazole (From Allergy Janes Verified 12/16/24 13:56 Bactrim) Dillon Syndrome trimethoprim (From Bactrim) Allergy Janes Verified 12/16/24 13:56 Dillon Syndrome Social History Smoking Status: Current every day smoker tobacco type: cigarettes ROS ROS ED Constitutional Constitutional ED: Denies chills, fever(s), subjective, sweats or weight loss Eyes Eyes: Denies blurry vision, change in vision or diplopia ENT ENT ED: Denies ear pain, rhinorrhea or sore throat Cardiovascular Cardiovascular: Denies chest pain, orthopnea, palpitations, paroxysmal nocturnal dyspnea or racing heartbeat Respiratory/Chest Respiratory/Chest: Reports cough, dyspnea and other Details: Positive wheezing and documented HPI narrative ; Denies dyspnea on exertion, orthopnea, paroxysmal nocturnal dyspnea or sputum Gastrointestinal Gastrointestinal: Reports diarrhea and other Details: Hematochezia ; Denies abdominal pain, constipation, melena, nausea or vomiting Genitourinary Genitourinary ED: Reports urinary frequency; Denies dysuria or hematuria Musculoskeletal Musculoskeletal: Denies arthralgias, back pain, myalgias or neck pain Integumentary Denies rash Neurologic Neurologic: Reports weakness; Denies headache(s) or paresthesias Psychiatric Psychiatric: Reports depression Hematologic/Lymphatic Hematologic/Lymphatic: Reports systems reviewed and no addt'l complaints, except as documented EXAM Physical Exam Const Vital Signs: 12/16/24 13:54 12/16/24 14:35 Temperature 97.7 F L Temperature Source Oral Pulse Rate 85 Respiratory Rate 18 Respiratory Effort Normal Non-Labored Respiratory Pattern Normal Blood Pressure 150/98 H Blood Pressure Mean 115 Pulse Ox 99 Oxygen Delivery Method Room Air Positive well nourished and well developed Constitutional Narrative: BMI is 38.8. Patient looks older than reported age. General Appearance ED: well developed, NAD and pallor; Negative for cyanotic or diaphoretic HEENT Reports moist mucous membranes HEENT Narrative: Head is atraumatic normocephalic. Ears normal. Nares patent. Posterior pharynx is normal Eyes PERRL and EOMs intact bilaterally General Eye ED: Negative for pale conjunctiva or scleral icterus Neck no lymphadenopathy, supple and no JVD Chest Wall inspection of chest normal and palpation of chest normal Resp normal respiratory effort and No clear to auscultation bilaterally Auscultation: wheezes expiratory wheezes and lower bilaterally Cardio regular rate, regular rhythm, S1 normal heart sound, S2 normal heart sound and no murmurs GI normal to inspection, nondistended, normoactive bowel sounds, non-tender, non-distended and no masses; Negative for hepatosplenomegaly GI Narrative: No fissures fistulas or hemorrhoids noted on rectal exam. There is no tenderness on digital exam. Anoscopy was performed. There is no evidence of fissures or hemorrhoids. There is some mucus noted with soft chunky stool with slight blood. Back/Spine no CVA tenderness Thoracic Spine / Upper Back: Negative for thoracic spinal tenderness Lumbar Spine / Lower Back: Negative for lumbar spinal tenderness Extremity normal to inspection General Extremety ED: Negative for edema or tenderness General Extremity: Negative for edema Neuro oriented x3 and CN's II-XII intact bilaterally Sensorium / Orientation: alert Psych mental status grossly normal Skin no rashes or lesions noted, no wounds and skin turgor normal General Skin Exam: pallor; Negative for elasticity normal or jaundice MDM MDM MDM Narrative Medical decision making narrative: Patient has viral upper respiratory symptoms and probably exacerbation of COPD. Since she is wheezing she was treated with albuterol and DuoNeb. If she still has wheezing after treatments we will treat with systemic steroids. Will obtain x-ray to assess for pneumonia. UA was obtained to assess for UTI. Prior records were reviewed. History & Record Review Additional record(s) reviewed:: Prior ED visit (Patient was diagnosed with pneumonia October 11, 2024. She was diagnosed with bronchitis January 04, 2024. She had dysuria when seen August 12, 2019.) and Prior labs Lab Data Attestation: I reviewed the patient's lab results. Lab results narrative: H&H is normal. Patient has microcytic indices. Competence metabolic panel is remarkable for chloride of 108 which is slightly elevated and glucose of 137 with a normal CO2 anion gap. Labs: Laboratory Results - last 24 hr 12/16/24 12/16/24 14:00 15:13 WBC 5.8 RBC 4.98 Hgb 12.0 Hct 39.4 MCV 79.1 L MCH 24.1 L MCHC 30.5 L RDW Std Deviation 53.1 H RDW Coeff of [place] 18.9 H Plt Count 241 MPV 9.3 Immature Gran % (Auto) 0.700 Neut % (Auto) 43.0 L Lymph % (Auto) 39.1 [place] % (Auto) 12.0 H Eos % (Auto) 5.0 Baso % (Auto) 0.2 Absolute Neuts (auto) 2.5 Absolute Lymphs (auto) 2.25 Nucleated RBC % 0 Sodium 139 Potassium 4.2 Chloride 108 H Carbon Dioxide 24.0 Anion Gap 8 BUN 19 H Creatinine 1.00 Estim Creat Clear Calc 64.70 Est GFR (MDRD) Af Amer 72 Est GFR (MDRD) Non-Af 60 BUN/Creatinine Ratio 19.0 Glucose 137 H Calcium 9.4 Total Bilirubin 0.30 AST 17 ALT 18 Alkaline Phosphatase 78 Total Protein 7.8 Albumin 3.4 Globulin 4.4 H Albumin/Globulin Ratio 0.8 L Urine Color Yellow Urine Clarity Clear Urine pH 6.0 Ur Specific [place] 1.010 Urine Protein Negative Urine Glucose (UA) Normal Urine Ketones Negative Urine Occult Blood Negative Urine Nitrite Negative Urine Bilirubin Negative Urine Urobilinogen Normal Ur Leukocyte Esterase 25 H Urine RBC 0-5 SEEN Urine WBC 5-10 SEEN Ur Squamous Epith Cells 0-5 SEEN Urine Bacteria 2+ Urine Mucus 0 SEEN Urine Chloride 153 Treatment and Re-Evaluation :: 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 Patient not had a urine culture since 2019. Patient was informed of her results. Plan is to discharge to home. Discharge Plan Triage Chief Complaint: General Illness ED Provider: Vincenzo Ocasio Dx/Rx/DC Orders Clinical Impression: Acute cystitis, Upper respiratory infection with cough and congestion, History of COPD Instructions: ED Cystitis Female Adult Prescriptions: New cephalexin 500 mg capsule 500 mg PO Q6 Qty: 28 0RF No Action omeprazole 20 MG capsule 20 mg PO BID Patient Comments: decrease stomach acid divalproex 250 MG tablet 500 mg PO BID Patient Comments: bipolar lorazepam 1 MG tablet 1 mg PO DAILY PRN PRN (Reason: Anxiety) Patient Comments: anxiety Ibuprofen [Motrin] 800 MG tablet 800 mg PO TID PRN PRN (Reason: Pain) Qty: 15 0RF benztropine 2 MG tablet 1 mg PO BID PRN (Reason: Muscle Spasm) risperidone 1 MG tablet 2 mg PO BID Rx Instructions: meloxicam 15 MG tablet 15 mg PO DAILY dicyclomine 10 MG capsule 10 mg PO TID ciprofloxacin HCl 500 MG tablet 500 mg PO BID Qty: 8 0RF levofloxacin 750 MG tablet 750 mg PO DAILY Qty: 5 0RF phenazopyridine 200 MG tablet 200 mg PO TID Qty: 9 0RF levofloxacin 750 mg tablet 750 mg PO DAILY Qty: 6 0RF doxycycline monohydrate 100 mg capsule 100 mg PO BID Qty: 20 0RF prednisone 20 mg tablet 40 mg PO DAILY Qty: 8 0RF Primary Care Provider: Cecil Gongora Referrals: Cecil Gongora MD [Primary Care Provider] - 3-5 Days if not improving Print Language: Telugu Disposition Disposition: Home, Self Care
[2024-12-16 15:22] LABS: Mucous, Urine 0 SEEN /hpf (<or=2+)
[2024-12-16 15:27] LABS: Color, Urine Yellow (Yellow); Glucose, Dipstick Normal (Normal); Ketone-Dipstick Negative (Negative); Leukocyte Esterase-Dipstick 25 /ul (Negative); Nitrite-Dipstick Negative (Negative); Occult Blood-Urine Negative /ul (Negative); Protein-Dipstick Negative (Negative); Urine Bilirubin Dipstick Negative (Negative); Urine Clarity Clear (Clear); Urine Urobilinogen Normal (Normal)
[2024-12-16 15:34] LABS: Bacteria 2+ /hpf (None Seen)
[2024-12-16 15:35] LABS: Red Blood Cells-Urine 0-5 SEEN /hpf (0-5); White Blood Cells 5-10 SEEN /hpf (0-5)
[2024-12-16 15:36] LABS: Squamous Epithelial Cells - UA 0-5 SEEN /hpf (5-10)
[2024-12-16 16:11] LABS: Urine Chloride 153 mmol/L (Not Establ.)
[2024-12-16] MEDS: Cephalexin 250 MG Capsule 500 MG PO (16:37)
== END 2024-12-16 16:39 | disposition home or self-care (01) ==
PROVIDERS: Emergency Provider Emergency Medicine; PCP Family Medicine; Visit Provider Emergency Medicine
DX: N30.00 Acute cystitis without hematuria (principal); F31.9 Bipolar disorder, unspecified; J44.9 Chronic obstructive pulmonary disease, unspecified; J06.9 Acute upper respiratory infection, unspecified; F17.210 Nicotine dependence, cigarettes, uncomplicated
CPT/HCPCS: 80053; 81001; 82436; 85025; 99283; A4216

== ENCOUNTER → 2025-03-15 | Outpatient (CLI) | payer MEDICARE, MEDICAID, SELFPAY ==
[2025-03-15 12:54] LABS: Absolute Lymphocyte Count 2.13 X10^3/uL (0.83-4.51); Absolute Neutrophil Count 4.7 X10^3/uL (2.0-7.7); Basophil# 0.07 X10^3/uL; Basophil% 0.9 % (0-1); Eosinophil# 0.33 X10^3/uL; Eosinophils% 4.1 % (0-5); Hemoglobin 10.9 g/dL (12.0-15.0); Lymphocyte # 2.13 X10^3/ul (0.83-4.51); Lymphocyte % 26.6 % (19-41); Mean Corp Hgb Conc 31.1 g/dL (32-36); Mean Corpuscular Hgb 25.2 pg (27.0-32.0); Mean Platelet Vol. 9.4 fl (6.2-12.0); Monocyte# 0.73 X10^3/uL; Monocyte% 9.1 % (0-10); NRBC Flagged by Analyzer 0 % (0-5); Neutrophil # 4.67 X10^3/uL (2.7-7.7); Neutrophil % 58.2 % (47-70); Platelet Count 250 K/mm3 (150-450); RBC Distribution Width CV 18.2 % (11.6-14.6); RBC Distribution Width SD 53.1 fl (35.1-43.9); Red Blood Count 4.32 M/mm3 (4.2-5.4)
[2025-03-15 13:32] LABS: ALB/GLOB Ratio 1.3 RATIO (0.9-2.4); AST(SGOT) 15 U/L (<=31); Alanine Aminotransfer ALT/SGPT 10 U/L (<=34); Albumin, Serum 3.9 g/dL (3.4-4.8); Alkaline Phosphatase 76 U/L (35-104); Anion Gap 12 (5-15); BUN 19 mg/dL (4-19); BUN/Creat Ratio 20.9 RATIO (10-20); Calcium,Total 9.2 mg/dL (7.6-11.0); Carbon Dioxide 22.5 mmol/L (21.0-32.0); Chloride 101 mmol/L (98-108); Creatinine, Serum 0.89 mg/dL (0.70-1.20); EST Glomerular Filtration Rate 72 (>60); Ferritin 8 ng/mL (22-378); Globulin 3.1 g/dL (2.2-4.2); Glucose 105 mg/dL (70-99); Potassium 4.3 mmol/L (3.3-5.1); Sodium Level 136 mmol/L (133-145); Total Bilirubin 0.23 mg/dL (0.00-1.30); Vitamin B12 456 pg/mL (180-914); Vitamin D,25 Hydroxy 27.4 ng/mL (30-100)
[2025-03-15 13:35] LABS: FOLATES,SERUM (FOLIC ACID) 9.74 ng/mL (4.60-34.80)
[2025-03-15 13:54] LABS: Iron 32 ug/dL (50-170); Iron Binding Capacity,Total 419 ug/dL (250-450); Iron Binding Capacity,Unsat 387 ug/dL (228-428)
== END | disposition home or self-care (01) ==
LOC: VSLAB 12:06
PROVIDERS: PCP Nurse Practitioner Family; Visit Provider Nurse Practitioner Family
DX: D50.9 Iron deficiency anemia, unspecified (principal); E55.9 Vitamin D deficiency, unspecified; R53.83 Other fatigue; R19.7 Diarrhea, unspecified
CPT/HCPCS: 36415; 80053; 82306; 82607; 82728; 82746; 83540; 83550; 84439; 84443; 85025

== ENCOUNTER 2025-05-14 15:33 | Emergency (ER) | payer MEDICARE, MEDICAID, SELFPAY ==
[2025-05-14 15:34] VITALS: BP 100/59; PULSE 97; RESP 18; TEMP 36.2; O2SAT 96; BMI 40.1
[2025-05-14 16:58] LABS: Hematocrit 39.7 % (37-47); Hemoglobin 12.9 g/dL (12.0-15.0); Immature Granulocytes Count 0.140 X10^3/uL (0.0-0.0); Mean Corp Hgb Conc 32.5 g/dL (32-36); Mean Corpuscular Volume 87.8 fL (81-99); Mean Platelet Vol. 9.6 fl (6.2-12.0); NRBC Flagged by Analyzer 0 % (0-5); POSITIVE MORPHOLOGY YES; Platelet Count 227 K/mm3 (150-450); RBC Distribution Width CV 22.0 % (11.6-14.6); RBC Distribution Width SD 69.1 fl (35.1-43.9); Red Blood Count 4.52 M/mm3 (4.2-5.4); White Blood Count 9.7 K/mm3 (4.4-11.0)
[2025-05-14 17:00] LABS: Differential Indicated SCAN CRITERIA MET
[2025-05-14 17:29] VITALS: BP 119/79; BP 123/85; BP 125/83; PULSE 80; PULSE 81; PULSE 88
[2025-05-14 17:33] VITALS: BP 123/85; PULSE 88; RESP 20; O2SAT 100
[2025-05-14 17:36] LABS: AST(SGOT) 21 U/L (<=31); Alanine Aminotransfer ALT/SGPT 16 U/L (<=34); Albumin, Serum 4.0 g/dL (3.4-4.8); Alkaline Phosphatase 61 U/L (35-104); Anion Gap 14 (5-15); BUN 23 mg/dL (4-19); BUN/Creat Ratio 18.0 RATIO (10-20); Calcium,Total 9.5 mg/dL (7.6-11.0); Carbon Dioxide 23.7 mmol/L (21.0-32.0); Chloride 102 mmol/L (98-108); Estimated Creatinine Clearance 51.89 ml/min (50-250); Globulin 2.8 g/dL (2.2-4.2); Glucose 89 mg/dL (70-99); Lipase 22 U/L (13-75); Potassium 4.9 mmol/L (3.3-5.1)
[2025-05-14 17:58] LABS: Anisocytosis 1+; Differential Comment SCANNED
[2025-05-14 19:00] VITALS: PULSE 82; RESP 18; O2SAT 96
== END 2025-05-14 20:03 | disposition left against medical advice (07) ==
LOC: ED 17:20
PROVIDERS: Emergency Provider Emergency Medicine; PCP Nurse Practitioner Family; Visit Provider Emergency Medicine
DX: R11.2 Nausea with vomiting, unspecified (principal); F31.9 Bipolar disorder, unspecified; E11.9 Type 2 diabetes mellitus without complications; R79.89 Other specified abnormal findings of blood chemistry; I95.9 Hypotension, unspecified; L93.0 Discoid lupus erythematosus; F17.210 Nicotine dependence, cigarettes, uncomplicated; Z79.899 Other long term (current) drug therapy; Z79.84 Long term (current) use of oral hypoglycemic drugs
CPT/HCPCS: 80053; 83690; 85025; 93005; 99284

== ENCOUNTER → 2025-06-06 | Outpatient (CLI) | payer MEDICARE, MEDICAID, SELFPAY ==
[2025-06-06 16:10] LABS: Hematocrit 41.0 % (37-47); Hemoglobin 13.4 g/dL (12.0-15.0); Immature Granulocytes Count 0.060 X10^3/uL (0.0-0.0); Mean Corp Hgb Conc 32.7 g/dL (32-36); Mean Corpuscular Volume 90.3 fL (81-99); Mean Platelet Vol. 10.6 fl (6.2-12.0); NRBC Flagged by Analyzer 0 % (0-5); POSITIVE MORPHOLOGY YES; Platelet Count 226 K/mm3 (150-450); RBC Distribution Width CV 19.9 % (11.6-14.6); RBC Distribution Width SD 65.4 fl (35.1-43.9); Red Blood Count 4.54 M/mm3 (4.2-5.4); White Blood Count 8.2 K/mm3 (4.4-11.0)
[2025-06-06 17:04] LABS: AST(SGOT) 17 U/L (<=31); Alanine Aminotransfer ALT/SGPT 19 U/L (<=34); Albumin, Serum 4.2 g/dL (3.4-4.8); Alkaline Phosphatase 72 U/L (35-104); Anion Gap 14 (5-15); BUN 21 mg/dL (4-19); BUN/Creat Ratio 21.0 RATIO (10-20); Calcium,Total 9.8 mg/dL (7.6-11.0); Carbon Dioxide 22.0 mmol/L (21.0-32.0); Chloride 103 mmol/L (98-108); Differential Indicated SCAN CRITERIA MET; Globulin 2.7 g/dL (2.2-4.2); Glucose 147 mg/dL (70-99); Potassium 4.0 mmol/L (3.3-5.1)
[2025-06-06 18:55] LABS: Differential Comment SCANNED
[2025-06-06 18:58] LABS: Anisocytosis 1+; Polychromasia 1+
== END | disposition home or self-care (01) ==
LOC: LAB 15:05
PROVIDERS: PCP Nurse Practitioner Family; Referring Provider Student in an Organized Health Care Education/Training Program; Visit Provider Student in an Organized Health Care Education/Training Program
DX: K21.9 Gastro-esophageal reflux disease without esophagitis (principal); K92.1 Melena
CPT/HCPCS: 36415; 80053; 85025

== ENCOUNTER → 2025-06-07 | Outpatient (CLI) | payer MEDICARE, MEDICAID, SELFPAY | END | disposition home or self-care (01) | LOC: LABSPEC 12:49 | PROVIDERS: PCP Nurse Practitioner Family; Referring Provider Student in an Organized Health Care Education/Training Program; Visit Provider Student in an Organized Health Care Education/Training Program | DX: K92.1 Melena (principal) | CPT/HCPCS: 36415; 82274 ==

== ENCOUNTER 2025-07-20 11:22 | Day surgery (SDC) | payer MEDICARE, MEDICAID, SELFPAY ==
--- NOTE | 2025-07-19 15:02 | PAT.ANE_ITS ---
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 When Was Last Pacemaker Check QUESTION #4 FULL TEXT: You/Your Family Experience fever (hyperthermia) with Anesthesia Last Oral Intake Last Oral intake: Last Oral Intake NPO since Meds taken in AM with sips of water? Meds patient instructed to take am of surgery PONV PONV - tire design engineer: PONV - tire design engineer Female Yes 07/19/25 10:19 HX of Motion Sickness Yes 07/19/25 10:19 HX of N/V After Surgery No 07/19/25 10:19 Non-Smoker No 07/19/25 10:19 Duration of Surgery greater No 07/19/25 10:19 than 60 minutes Number of Risk Factors 2 07/19/25 10:19 PONV Score Moderate Risk 07/19/25 10:19 Height & Weight Height & Weight: Anesthesia: Height & Weight Height 5 ft 3 in 06/06/25 15:05 Respiratory Assessment Respiratory Assessment - tire design engineer: Respiratory Tract Infection Hx - tire design engineer Hx Respiratory Tract Infection No 07/19/25 10:19 STOP Sleep Apnea STOP Sleep Apnea - tire design engineer: STOP Sleep Apnea - tire design engineer Hx Hypertension No 07/19/25 10:19 Hx Sleep Apnea No 07/19/25 10:19 CPAP No 09/28/14 21:21 BIPAP No 09/28/14 21:21 Do you snore loudly (louder No 07/19/25 10:19 than talking or can be heard Do you often feel tired/ Yes 07/19/25 10:19 fatigued/ sleepy during daytime? Has anyone observed you stop No 07/19/25 10:19 breathing during sleep? STOP Results Negative 07/19/25 10:19 QUESTION #5 FULL TEXT : Do you snore loudly (louder than talking or can be heard through closed doors)? Tobacco Use History Tobacco Use History - tire design engineer: Tobacco Use History - tire design engineer Tobacco Use Cigarettes 08/12/19 10:53 Smoking Status Current every day smoker 07/19/25 10:19 Hx Tobacco Use No 07/19/25 10:19 Years Smoking Packs Smoked per Day Smoking Cessation Date was within the last 15 years Hx Smoking Cessation Date Hx Smoking Cessation No 07/19/25 10:19 Counseling Hematologic Medial History Hematologic Hx - tire design engineer: Hematologic Medical Hx - technical specialist cytology Hx of Blood Transfusion No 07/19/25 10:19 Hx of Transfusion in last 3 No 07/19/25 10:19 Months Date of Last Transfusion (if within last 3 months) Ever experience any problems No 07/19/25 10:19 with transfusion(s)? Specify any problems Hx of Preganancy in last 3 No 07/19/25 10:19 Months Nurse Filling Out Transfusion DSCHRIBER 07/19/25 10:19 & Questions: Date: 07/19/25 07/19/25 10:19 Time: 10:20 07/19/25 10:19 Patient unable to answer at this time (ie. confused, unrespo /Reproduction History /Reproductive History - tire design engineer: /Reproductive Hx- tire design engineer Hx Now No 07/19/25 10:19 Gestational Age (in weeks): EDC: Hx Hx Para Hx Section SAB No 07/19/25 10:19 PFSH Medical History (Updated 07/19/25 @ 10:26 by Jennifer Gomez) Wears glasses Wears dentures Post-menopausal Depression Anxiety Diabetes Arthritis Bladder disease Low iron Easy bruising Restless legs Back pain History of hiatal hernia History of IBS Gastric reflux Smoker COPD (chronic obstructive pulmonary disease) Shortness of breath on exertion Chronic cough Leg cramps History of edema History of echocardiogram Cutaneous lupus erythematosus Bipolar disorder Tobacco use disorder Home Medications ?Medication ?Instructions ?Recorded ?Last Taken ?Type meloxicam 15 mg tablet 15 mg PO DAILY 03/08/1906/01 History acyclovir 400 mg tablet 400 mg PO BID 05/14/2505/14 History dicyclomine 20 mg tablet 20 mg PO 4X/DAY 05/14/2506/01 History divalproex 500 mg tablet,delayed 500 mg PO BID 5 05/14/25 History release famotidine 40 mg tablet 40 mg PO QHS 05/14/25 History gabapentin 100 mg capsule 100 mg PO BID 05/14/2505/14 History gabapentin 300 mg capsule 300 mg PO QHS 05/14/2505/13 History metformin 500 mg tablet,extended 500 mg PO BID 5 05/14/25 History release 24 hr mirabegron 50 mg tablet,extended 50 mg PO DAILY 05/14/25 History release 24 hr (Myrbetriq) naltrexone 50 mg tablet 50 mg PO DAILY 05/14/25/06/01 History esomeprazole magnesium 40 mg 40 mg PO QDAY #60 caps Unknown Rx capsule,delayed release ascorbic acid (vitamin C) 1,000 mg 1 g PO DAILY Unknown History tablet (C-1000) ferrous sulfate 325 mg (65 mg 325 mg PO DAILY 07/19/25 07/17/25 History iron) tablet (iron) Allergy/AdvReac Type Severity Reaction Status Date / Time lithium ([place]) Allergy Unknown Verified 07/19/25 10:13 nitrofurantoin (From Allergy Janes Verified 07/19/25 10:13 Macrobid) Dillon Syndrome nitrofurantoin Allergy Janes Verified 07/19/25 10:13 macrocrystalline (From Dillon Macrobid) Syndrome sulfamethoxazole (From Allergy Janes Verified 07/19/25 10:13 Bactrim) Dillon Syndrome trimethoprim (From Bactrim) Allergy Janes Verified 07/19/25 10:13 Dillon Syndrome Surgical History (Updated 07/19/25 @ 10:26 by Jennifer Goemz) Hx of colonoscopy History of esophagogastroduodenoscopy (EGD) Hx of bladder repair surgery Hx of tonsillectomy Hx of tubal ligation Social History Smoking Status: Current every day smoker tobacco type: cigarettes Audit: Pertinent Findings Pertinent Findings EKG Perinent findings: 05/14/2025. Sinus rhythm with PACs in a pattern of bigeminy. Compared to October 11, 2024, PACs are more common. Echo (EF%) pertinent findings: 03/08/2019. EF is 65%. RVSP is 30 mmHg. No aortic stenosis. Recommendation Anesthesia Recommendation Anesthesia recommendation: OPTIMIZED for anesthesia
[2025-07-20] VITALS (9 sets, daily range): BP systolic 113–135; BP diastolic 34–95; PULSE 65–73; RESP 16–24; TEMP 36.1–37.1; O2SAT 96–100; BMI 40.4
[2025-07-20] MEDS: Lactated Ringers 1,000 ML 15 ML IV (11:57)
--- NOTE | 2025-07-20 12:25 | PCM.PRE.AN2 ---
ASA Classification* ASA Classification ASA Classification: 3 Assessment & Plan Anesthesia* Anesthesia Assessment Anesthesia Assessment: Discussed sedation and/or anesthesia options, risks, benefits, and alternatives with patient/parents/legal guardian/POA. Questions invited. The patient/parents/legal guardian/POA seems to understand and agrees to proceed with anesthesia plan. Reviewed the physical assessment, medical history, allergy history and patient home medications list prior to surgery/procedure/anesthetic and documented any changes. Performed airway and anesthesia risk assessments. Anesthesia Type Anesthesia Type: MAC Anesthesia Focused Assessment* Temperature: 96.9 F Pulse Rate: 73 Blood Pressure: 126/95 Respiratory Rate: 16 Pulse Ox: 96 Airway Assessment Mouth opens: >3 cm Mallampati Score: III Labs Anesthesia Preop lab: CBC WBC 8.2 K/mm3 (4.4-11.0) 06/06/25 15:15 06/06/25 RBC 4.54 M/mm3 (4.2-5.4) 06/06/25 15:15 06/06/25 Hgb 13.4 g/dL (12.0-15.0) 06/06/25 15:15 06/06/25 Hct 41.0 % (37-47) 06/06/25 15:15 06/06/25 Plt Count 226 K/mm3 (150-450) 06/06/25 15:15 06/06/25 CHEMISTRY Potassium 4.0 mmol/L (3.3-5.1) 06/06/25 15:15 06/06/25 Sodium 139 mmol/L (133-145) 06/06/25 15:15 06/06/25 BUN 21 mg/dL (4-19) H 06/06/25 15:15 06/06/25 Creatinine 1.00 mg/dL (0.70-1.20) 06/06/25 15:15 06/06/25 Glucose 147 mg/dL (70-99) H 06/06/25 15:15 06/06/25 POC Glucose 106 mg/dL (74-106) 07/20/25 11:43 07/20/25 TSH 2.570 uIU/mL (0.300-4.200) 03/15/25 12:07 03/15/25 COAG PT 14.6 SECONDS (11.7-14.9) 03/08/19 03:10 03/08/19 Urine Test Negative Negative 03/08/19 03:22 03/08/19 Pre-Assessment Diagnosis/Proposed Procedure Planned Operative Procedure(s): EGD/CSCOPE Anesthesia History 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 When Was Last Pacemaker Check QUESTION #4 FULL TEXT: You/Your Family Experience fever (hyperthermia) with Anesthesia Last Oral Intake Last Oral intake: Last Oral Intake NPO since 08:30 07/20/25 11:54 Meds taken in AM with sips of Yes 07/20/25 11:54 water? Meds patient instructed to NEXIUM,DEPAKOTE,GABAPENTIN, 07/20/25 11:54 take am of surgery MYRBETRIQ PONV PONV - arranger assembler: PONV - arranger assembler Female Yes 07/19/25 10:19 HX of Motion Sickness Yes 07/19/25 10:19 HX of N/V After Surgery No 07/19/25 10:19 Non-Smoker No 07/19/25 10:19 Duration of Surgery greater No 07/19/25 10:19 than 60 minutes Number of Risk Factors 2 07/19/25 10:19 PONV Score Moderate Risk 07/19/25 10:19 Height & Weight Height & Weight: Anesthesia: Height & Weight Height 5 ft 3 in 07/20/25 11:54 Weight: 103.4 kg 07/20/25 11:54 Body Mass Index (BMI) 40.4 07/20/25 11:54 Respiratory Assessment Respiratory Assessment - arranger assembler: Respiratory Tract Infection Hx - arranger assembler Hx Respiratory Tract Infection No 07/19/25 10:19 STOP Sleep Apnea STOP Sleep Apnea - arranger assembler: STOP Sleep Apnea - arranger assembler Hx Hypertension No 07/19/25 10:19 Hx Sleep Apnea No 07/19/25 10:19 CPAP No 09/28/14 21:21 BIPAP No 09/28/14 21:21 Do you snore loudly (louder No 07/19/25 10:19 than talking or can be heard Do you often feel tired/ Yes 07/19/25 10:19 fatigued/ sleepy during daytime? Has anyone observed you stop No 07/19/25 10:19 breathing during sleep? STOP Results Negative 07/19/25 10:19 QUESTION #5 FULL TEXT : Do you snore loudly (louder than talking or can be heard through closed doors)? 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 Specify any problems Hx of Preganancy in last 3 No 07/19/25 10:19 Months Nurse Filling Out Transfusion DSCHRIBER 07/19/25 10:19 & Questions: Date: 07/19/25 07/19/25 10:19 Time: 10:20 07/19/25 10:19 Patient unable to answer at this time (ie. confused, unrespo /Reproduction History /Reproductive History - arranger assembler: /Reproductive Hx- arranger assembler Hx Now No 07/19/25 10:19 Gestational Age (in weeks): EDC: Hx Hx Para Hx Section SAB No 07/19/25 10:19 Active Medications Active Medications: Current Medications Generic Name Dose Route Start Last Admin Trade Name Freq PRN Reason Stop Dose Admin Lactated Ringer's 1,000 mls @ 15 mls/hr 07/20/25 12:00 07/20/25 11:57 IV 15 mls/hr .Q48H SOLO Administration PFSH Medical History (Updated 07/19/25 @ 10:26 by Jennifer Gomez) Wears glasses Wears dentures Post-menopausal Depression Anxiety Diabetes Arthritis Bladder disease Low iron Easy bruising Restless legs Back pain History of hiatal hernia History of IBS Gastric reflux Smoker COPD (chronic obstructive pulmonary disease) Shortness of breath on exertion Chronic cough Leg cramps History of edema History of echocardiogram Cutaneous lupus erythematosus Bipolar disorder Tobacco use disorder Home Medications ?Medication ?Instructions ?Recorded ?Last Taken ?Type meloxicam 15 mg tablet 15 mg PO DAILY 03/08/19 05/14/25 History acyclovir 400 mg tablet 400 mg PO BID 05/14/25 05/14/25 History dicyclomine 20 mg tablet 20 mg PO 4X/DAY 05/14/25 05/14/25 History divalproex 500 mg tablet,delayed 500 mg PO BID 05/14/25 07/20/25 History release famotidine 40 mg tablet 40 mg PO QHS 05/14/25 05/13/25 History gabapentin 100 mg capsule 100 mg PO BID 05/14/25 07/20/25 History gabapentin 300 mg capsule 300 mg PO QHS 05/14/25 05/13/25 History metformin 500 mg tablet,extended 500 mg PO BID 05/14/25 05/14/25 History release 24 hr mirabegron 50 mg tablet,extended 50 mg PO DAILY 05/14/25 07/20/25 History release 24 hr (Myrbetriq) naltrexone 50 mg tablet 50 mg PO DAILY 05/14/25 05/14/25 History esomeprazole magnesium 40 mg 40 mg PO QDAY #60 caps 06/06/25 07/20/25 Rx capsule,delayed release ascorbic acid (vitamin C) 1,000 mg 1 g PO DAILY 07/19/25 Unknown History tablet (C-1000) ferrous sulfate 325 mg (65 mg 325 mg PO DAILY 07/19/25 07/17/25 History iron) tablet (iron) Allergy/AdvReac Type Severity Reaction Status Date / Time lithium ([place]) Allergy Unknown Verified 07/20/25 11:50 nitrofurantoin (From Allergy Janes Verified 07/20/25 11:50 Macrobid) Dillon Syndrome nitrofurantoin Allergy Janes Verified 07/20/25 11:50 macrocrystalline (From Dillon Macrobid) Syndrome sulfamethoxazole (From Allergy Janes Verified 07/20/25 11:50 Bactrim) Dillon Syndrome trimethoprim (From Bactrim) Allergy Janes Verified 07/20/25 11:50 Dillon Syndrome Surgical History (Updated 07/19/25 @ 10:26 by Jennifer Gomez) Hx of colonoscopy History of esophagogastroduodenoscopy (EGD) Hx of bladder repair surgery Hx of tonsillectomy Hx of tubal ligation Social History Smoking Status: Current every day smoker tobacco type: cigarettes Review of Systems (Anesthesia) ROS Narrative System reviewed and no additional complaints, except as documented.
--- NOTE | 2025-07-20 12:30 | COLBX_PTH ---
PATIENT: JAMSHID BYRD LOC: EN U#:[id number] AGE/SX: 64/F ROOM: RE07/20/[address]: Dr. Kashif Streeter DO : 1960 BED: DIS: 07/20/2025 SPEC #: [id number] RECD: 07/20/25 14:21 STATUS: GRACE MYLES #: [id number] EARL: 07/20/25 12:[address]: Kashif Streeter DEPT: SURGICAL PATHOLOGY RECD BY: Shayan Browning ENTERED: 07/20/25 14:38 SP TYPE: COLON BX OTHR DR: Charisma Quiros, [employer]ER [employer]-C JOY Adkins Tissues: A - Esophagus, NOS B - Gastric mucous membrane C - SPLENIC FLEXURE Procedures: Immunohistochemical Stains Surgery Specimen Level IV HEADER OPERATION: Colonoscopy with polypectomy, EGD with biopsies PRE-OP DIAGNOSIS: Gastroesophageal reflux disease, black stool TISSUE SUBMITTED: A- Distal esophagus biopsy, B- Gastric body biopsy, C- Splenic flexure polyp MICROSCOPIC DIAGNOSIS A. Distal esophagus, biopsies: - Benign squamous epithelium - Oxynto-cardiac mucosa with chronic inflammation - No goblet cell metaplasia is present B. Stomach, body: * Oxyntic mucosa with slight chronic inflammation * An immunohistochemical stain for Helicobacter pylori is negative C. Large intestine, splenic flexure polyp: * Tubular adenoma MICROSCOPIC DESCRIPTION Slides are reviewed. All matched controls reacted appropriately. These tests were developed and their performance characteristics determined by [facility]. They may not have been cleared or approved by the U.S. Food and Drug Administration. The FDA has determined that such clearance or approval is not necessary. The above immunohistochemical/dualISH markers are viewed by the Pathologist. GROSS DESCRIPTION A. Received in fixative is one container labeled with the patient's name and designated Distal esophagus biopsy. The specimen consists of two irregular fragments of light pacheco tissue, each measuring 0.3 cm. The specimen is totally submitted in one cassette. B. Received in fixative is one container labeled with the patient's name and designated Gastric body biopsy. The specimen consists of two irregular fragments of light pacheco tissue that measure 0.8 and 1 cm. The specimen is totally submitted in one cassette. C. Received in fixative is one container labeled with the patient's name and designated Splenic flexure polyp. The specimen consists of three irregular fragments of light pacheco tissue that measure 0.3 to 0.4 cm. The specimen is totally submitted in one cassette. PR 07/20/2025 CPT:62763l1
--- NOTE | 2025-07-20 12:45 | PCM.HP.STD ---
HPI - General General Date of Admission: 07/20/25 Date of Service: 07/20/25 Chief Complaint: GI bleeding HPI Narrative JAMSHID BYRD, is a 64 F who presentsChief Complaint: hemtemesis [facility] ED 05.15.25 with coffee ground emesis. Pt hypotensive. CBC wnl. Left ED prior to discharge. OV 7 patient here today for ED follow-up. Prior to presenting to the ED patient was having severe heartburn. She woke up out of her sleep and had to vomit. Her vomit was dark and black. Since then she continues to have daily heartburn. She is vomiting 2 times per week with reddish oranges emesis. Patient also endorsing black loose stool over this time. She has a long history of heartburn and has been on esomeprazole for many years. She also takes famotidine. Patient takes Excedrin about 1 time per week for her headaches. She is also on meloxicam. Patient has never had an EGD before. Last colonoscopy was about 10 years ago with polyps. Patient's brother had colon cancer in his 50s and from this. [facility] Medical History Wears glasses Wears dentures Post-menopausal Depression Anxiety Diabetes Arthritis Bladder disease Low iron Easy bruising Restless legs Back pain History of hiatal hernia History of IBS Gastric reflux Smoker COPD (chronic obstructive pulmonary disease) Shortness of breath on exertion Chronic cough Leg cramps History of edema History of echocardiogram Cutaneous lupus erythematosus Bipolar disorder Tobacco use disorder Home Medications ?Medication ?Instructions ?Recorded ?Last Taken ?Type meloxicam 15 mg tablet 15 mg PO DAILY 03/08/19 05/14/25 History acyclovir 400 mg tablet 400 mg PO BID 05/14/25 05/14/25 History dicyclomine 20 mg tablet 20 mg PO 4X/DAY 05/14/25 05/14/25 History divalproex 500 mg tablet,delayed 500 mg PO BID 05/14/25 07/20/25 History release famotidine 40 mg tablet 40 mg PO QHS 05/14/25 05/13/25 History gabapentin 100 mg capsule 100 mg PO BID 05/14/25 07/20/25 History gabapentin 300 mg capsule 300 mg PO QHS 05/14/25 05/13/25 History metformin 500 mg tablet,extended 500 mg PO BID 05/14/25 05/14/25 History release 24 hr mirabegron 50 mg tablet,extended 50 mg PO DAILY 05/14/25 07/20/25 History release 24 hr (Myrbetriq) naltrexone 50 mg tablet 50 mg PO DAILY 05/14/25 05/14/25 History esomeprazole magnesium 40 mg 40 mg PO QDAY #60 caps 06/06/25 07/20/25 Rx capsule,delayed release ascorbic acid (vitamin C) 1,000 mg 1 g PO DAILY 07/19/25 Unknown History tablet (C-1000) ferrous sulfate 325 mg (65 mg 325 mg PO DAILY 07/19/25 07/17/25 History iron) tablet (iron) Allergy/AdvReac Type Severity Reaction Status Date / Time lithium ([place]) Allergy Unknown Verified 07/20/25 11:50 nitrofurantoin (From Allergy Janes Verified 07/20/25 11:50 Macrobid) Dillon Syndrome nitrofurantoin Allergy Janes Verified 07/20/25 11:50 macrocrystalline (From Dillon Macrobid) Syndrome sulfamethoxazole (From Allergy Janse Verified 07/20/25 11:50 Bactrim) Dillon Syndrome trimethoprim (From Bactrim) Allergy Janes Verified 07/20/25 11:50 Dillon Syndrome Surgical History Hx of colonoscopy History of esophagogastroduodenoscopy (EGD) Hx of bladder repair surgery Hx of tonsillectomy Hx of tubal ligation Social History Smoking Status: Current every day smoker tobacco type: cigarettes ROS Constitutional Constitutional: Denies fatigue, fever(s), poor appetite, weight gain or weight loss Gastrointestinal Gastrointestinal: Denies belching, bloating, change in bowel habits, change in stool character, chewing difficulty, coffee ground emesis, constipation, cramping, diarrhea, dyspepsia, dysphagia, early satiety, excessive flatus, fecal incontinence, heartburn, hematemesis, hematochezia, hemorrhoids, loose stools, melena, nausea, odynophagia, rectal bleeding, tenesmus, vomiting or weight changes Vital Signs Vital Signs Vital Signs: 07/20/25 11:54 07/20/25 11:54 07/20/25 12:25 Temperature 96.9 F L 96.9 F L Temperature Source Temporal Pulse Rate 73 73 Respiratory Rate 16 16 Respiratory Pattern Normal Blood Pressure 126/95 H 126/95 H Blood Pressure Mean 105 Blood Pressure Source Monitor Blood Pressure Position Semi-Fowlers Blood Pressure Location Left Arm Pulse Ox 96 96 Oxygen Delivery Method Room Air Weight Weight: 227 lb 15.327 oz Body Mass Index (BMI) 40.4 Physical Exam Const alert, oriented x3, no apparent distress and healthy appearing General Appearance: cooperative GI normal to inspection, nondistended, normoactive bowel sounds, soft to palpation, non-tender and non-distended Percussion: normal to percussion Rectal Exam: deferred Results Lab / Micro Data Labs: Laboratory Results - last 24 hr 07/20/25 11:43: POC Glucose 106 Assessment & Plan Assessment/Plan (1) Hematemesis: (2) Black stool: PLAN: Assessment and Plan Assessment and Plan (1) Gastroesophageal reflux disease: (2) Black stool: Status: Acute Plan: Carmen is a 64-year-old female patient here today for ED follow-up. Patient presented to the ED with 1 episode of coffee-ground emesis. Prior to vomiting she was having severe heartburn. In the ED hemoglobin was stable however she was hypotensive. She admits to leaving after 3 hours of waiting for results. Since then she has had continued heartburn and vomiting a few times per week. She has no history of GI bleeding. She does take Excedrin once per week as well as meloxicam. Last colonoscopy was over 10 years ago. She does have a family history of colon cancer in her brother who was diagnosed in his 50s. She will undergo EGD and colonoscopy for screening. I have ordered repeat CBC CMP and stool test for blood. Pending results will consider moving up her EGD. Vitals in the office today were normal she will continue his esomeprazole 40 mg daily and famotidine 40 mg as needed. - EGD - Colonoscopy - Continue his esomeprazole - Continue famotidine - CBC, CMP and fecal occult blood test (3) Hematemesis: Status: Acute Orders: Orders CBC W/Diff, Automated Today K21.9 - Gastro-esophageal reflux disease without esophagitis Stool Occult Blood iFOB Today K92.1 - Melena Comprehensive Metabolic Profil Today K92.1 - Melena
--- NOTE | 2025-07-20 13:36 | OP.EGD_ITS ---
Patient Name: Tori Jimenez Procedure Date: 07/20/2025 12:56 PM Date of : 1960 Age: 64 Procedure: Upper GI endoscopy Indications: Epigastric abdominal pain, Functional Dyspepsia, Suspected esophageal reflux Providers: Kashif Streeter DO Referring MD: Mena Adkins Medicines: Monitored Anesthesia Care Patient Profile: This is a 64 year old female. Refer to note in patient chart for documentation of history and physical. Patient has symptoms of acute epigastric abdominal pain, chronic nausea, chronic throat burning and chronic vomiting. Complications: No immediate complications. Procedure: Pre-Anesthesia Assessment: - Prior to the procedure, a History and Physical was performed, and patient medications and allergies were reviewed. The patient is competent. The risks and benefits of the procedure and the sedation options and risks were discussed with the patient. All questions were answered and informed consent was obtained. Patient identification and proposed procedure were verified by the physician in the pre-procedure area. Mental Status Examination: alert and oriented. Airway Examination: normal oropharyngeal airway and neck mobility. Respiratory Examination: clear to auscultation. CV Examination: normal. Prophylactic Antibiotics: The patient does not require prophylactic antibiotics. Prior Anticoagulants: The patient has taken no anticoagulant or antiplatelet agents except for NSAID medication. ASA Grade Assessment: II - A patient with mild systemic disease. After reviewing the risks and benefits, the patient was deemed in satisfactory condition to undergo the procedure. The anesthesia plan was to use monitored anesthesia care (MAC). Immediately prior to administration of medications, the patient was re-assessed for adequacy to receive sedatives. The heart rate, respiratory rate, oxygen saturations, blood pressure, adequacy of pulmonary ventilation, and response to care were monitored throughout the procedure. The physical status of the patient was re-assessed after the procedure. After obtaining informed consent, the endoscope was passed under direct vision. Throughout the procedure, the patient's blood pressure, pulse, and oxygen saturations were monitored continuously. The Colonoscope was introduced through the mouth, and advanced to the fourth part of the duodenum. Small bowel enteroscopy was deemed necessary. The upper GI endoscopy was accomplished without difficulty. The patient tolerated the procedure well. Scope In: 1:01:11 PM Scope Out: 1:07:29 PM Total Procedure Duration Time 0 hours 6 minutes 18 seconds Findings: The Z-line was irregular and was found 39 cm from the incisors. Biopsies were taken with a cold forceps for histology. Verification of patient identification for the specimen was done. Estimated blood loss was minimal. A large hiatal hernia was present. Patchy mildly erythematous mucosa was found in the gastric body. Biopsies were taken with a cold forceps for histology. Biopsies were taken with a cold forceps for Helicobacter pylori testing. Verification of patient identification for the specimen was done. Estimated blood loss was minimal. No gross lesions were noted in the entire examined duodenum. Impression: - Z-line irregular, 39 cm from the incisors. Biopsied. - Large hiatal hernia. - Erythematous mucosa in the gastric body. Biopsied. - No gross lesions in the entire examined duodenum. Recommendation: - Discharge patient to home. - Resume previous diet. - Continue present medications. - Await pathology results. Procedure Code(s): --- Professional --- 77406, Small intestinal endoscopy, enteroscopy beyond second portion of duodenum, not including ileum; with biopsy, single or multiple CPT copyright 2021 [employer]. All rights reserved. The codes documented in this report are preliminary and upon him coder review may be revised to meet current compliance requirements. Kashif Streeter DO 07/20/2025 1:36:10 PM This report has been signed electronically. Number of Addenda: 0 Note Initiated On: 07/20/2025 12:56 PM
--- NOTE | 2025-07-20 13:36 | OP.PROVAT_ITS ---
07/20/2025 Mena Adkins Re : Upper GI endoscopy procedure for Tori Jimenez [place] This procedure was performed on Sunday, July 20, 2025. My impressions and recommendations are as follows: Impressions : - Z-line irregular, 39 cm from the incisors. Biopsied. - Large hiatal hernia. - Erythematous mucosa in the gastric body. Biopsied. - No gross lesions in the entire examined duodenum. Recommendations : - Discharge patient to home. - Resume previous diet. - Continue present medications. - Await pathology results. My findings are described in the full procedure note, which is enclosed. If I can be of further assistance, please feel free to contact me at . Sincerely, Kashif Streeetr, 07/20/2025 1:36:10 PM This report has been signed electronically.
--- NOTE | 2025-07-20 13:42 | OP.COLON_ITS ---
Patient Name: Tori Jimenez Procedure Date: 07/20/2025 1:07 PM Date of : 1960 Age: 64 Procedure: Colonoscopy Indications: Generalized abdominal pain Providers: Kashif Streeter DO Referring MD: Mena Adkins Medicines: Monitored Anesthesia Care Patient Profile: This is a 64 year old female. Refer to note in patient chart for documentation of history and physical. Patient has symptoms of acute epigastric abdominal pain, chronic nausea, chronic throat burning and chronic vomiting. Last Colonoscopy: date unknown. Unable to locate last colonoscopy report. Complications: No immediate complications. Procedure: Pre-Anesthesia Assessment: - Prior to the procedure, a History and Physical was performed, and patient medications and allergies were reviewed. The patient is competent. The risks and benefits of the procedure and the sedation options and risks were discussed with the patient. All questions were answered and informed consent was obtained. Patient identification and proposed procedure were verified by the physician in the pre-procedure area. Mental Status Examination: alert and oriented. Airway Examination: normal oropharyngeal airway and neck mobility. Respiratory Examination: clear to auscultation. CV Examination: normal. Prophylactic Antibiotics: The patient does not require prophylactic antibiotics. Prior Anticoagulants: The patient has taken no anticoagulant or antiplatelet agents except for NSAID medication. ASA Grade Assessment: II - A patient with mild systemic disease. After reviewing the risks and benefits, the patient was deemed in satisfactory condition to undergo the procedure. The anesthesia plan was to use monitored anesthesia care (MAC). Immediately prior to administration of medications, the patient was re-assessed for adequacy to receive sedatives. The heart rate, respiratory rate, oxygen saturations, blood pressure, adequacy of pulmonary ventilation, and response to care were monitored throughout the procedure. The physical status of the patient was re-assessed after the procedure. After I obtained informed consent, the scope was passed under direct vision. Throughout the procedure, the patient's blood pressure, pulse, and oxygen saturations were monitored continuously. The adult colonoscope was introduced through the anus and advanced to the cecum, identified by appendiceal orifice and ileocecal valve. The colonoscopy was performed without difficulty. The patient tolerated the procedure well. The quality of the bowel preparation was adequate. The ileocecal valve, appendiceal orifice, and rectum were photographed. Scope In: 1:08:11 PM Scope Withdrawal Time 0 hours 13 minutes 45 seconds Scope Out: 1:26:29 PM Total Procedure Duration Time 0 hours 18 minutes 18 seconds Findings: The perianal and digital rectal examinations were normal. An area of moderately congested mucosa was found in the recto-sigmoid colon, in the sigmoid colon and in the descending colon. Multiple small and large-mouthed diverticula were found in the recto-sigmoid colon, sigmoid colon, descending colon and splenic flexure. Two sessile polyps were found in the sigmoid colon. The polyps were 7 mm in size. These polyps were removed with a cold biopsy forceps. Resection and retrieval were complete. Verification of patient identification for the specimen was done. Estimated blood loss was minimal. Retroflexion in the rectum was not performed due to anatomy. Moderate rectal prolapse was present. Impression: - Congested mucosa in the recto-sigmoid colon, in the sigmoid colon and in the descending colon. - Diverticulosis in the recto-sigmoid colon, in the sigmoid colon, in the descending colon and at the splenic flexure. - Two 7 mm polyps in the sigmoid colon, removed with a cold biopsy forceps. Resected and retrieved. Recommendation: - Repeat colonoscopy in 5 years for surveillance. - Continue present medications. Procedure Code(s): --- Professional --- 79563, Colonoscopy, flexible; with biopsy, single or multiple CPT copyright 2021 [employer]. All rights reserved. The codes documented in this report are preliminary and upon environmental monitoring technician review may be revised to meet current compliance requirements. Kashif Streeter DO 07/20/2025 1:42:26 PM This report has been signed electronically. Number of Addenda: 0 Note Initiated On: 07/20/2025 1:07 PM
--- NOTE | 2025-07-20 13:42 | OP.PROVAT_ITS ---
07/20/2025 Mena Adkins Re : Colonoscopy procedure for Tori Jimenez [place] This procedure was performed on Sunday, July 20, 2025. My impressions and recommendations are as follows: Impressions : - Congested mucosa in the recto-sigmoid colon, in the sigmoid colon and in the descending colon. - Diverticulosis in the recto-sigmoid colon, in the sigmoid colon, in the descending colon and at the splenic flexure. - Two 7 mm polyps in the sigmoid colon, removed with a cold biopsy forceps. Resected and retrieved. Recommendations : - Repeat colonoscopy in 5 years for surveillance. - Continue present medications. My findings are described in the full procedure note, which is enclosed. If I can be of further assistance, please feel free to contact me at . Sincerely, Kashif Streeter, 07/20/2025 1:42:26 PM This report has been signed electronically.
--- NOTE | 2025-07-20 14:11 | PCM.POST.ANE ---
Anesthesia: Postop Eval I Current Vital Signs Temperature: 98.7 F Pulse Rate: 67 Blood Pressure: 113/75 Respiratory Rate: 18 Pulse Ox: 97 Oxygen Delivery Method: Room Air Assessment Airway patent: Yes Spontaneous unlabored respirations: Yes Mental status: Awake nausea: Yes Vomiting: No Anesthesia Complication: Yes Anesthesia Complication Comment:: PONV, promethazine adm IV by anes. in PACU Fluid Hydration Crystalloid volume administer (ml): 800 Total IV fluid infused: 800 Progress Note Anesthesia document: Postop Eval 1 completed: Yes
--- NOTE | 2025-07-20 14:15 | PCM.POSTANE2 ---
Anesthesia Postop Eval I Sum Postop Eval Completion status Anesthesia document: Postop Eval 1 completed: Yes Anesthesia Postop Eval I Summary Anesthesia Postop Eval I Summary: Anesthesia Postop Eval I: Assessment Summary Airway patent Yes 07/20/25 14:14 [email or web address] Spontaneous unlabored Yes 07/20/25 14:14 [email or web address] respirations Mental status Awake 07/20/25 14:14 [email or web address] nausea Yes 07/20/25 14:14 [email or web address] Vomiting No 07/20/25 14:14 [email or web address] Anesthesia Postop Eval I: Fluid Summary Crystalloid volume administer 800 07/20/25 14:14 [email or web address] (ml) Colloids volume administered ( ml) Blood Product volume administered (ml) Total IV fluid infused 800 07/20/25 14:14 [email or web address] Anesthesia Postop Eval I: Summary Notes Anesthesia Complication Yes 07/20/25 14:14 [email or web address] Anesthesia Complication PONV, promethazine 07/20/25 14:14 [email or web address] Comment: adm IV by gerald. in PACU Post-operative progress note Anesthesia: Postop Eval II Evaluation Mental status: Awake Pain Level: 0 nausea: No Vomiting: No
== END 2025-07-20 14:05 | disposition home or self-care (01) ==
LOC: EN 11:23 → AC 11:24
PROVIDERS: PCP Nurse Practitioner Family; Referring Provider Nurse Practitioner Family; Visit Provider Internal Medicine Gastroenterology
PROC: 0DJD8ZZ Inspection of Lower Intestinal Tract, Via Natural or Artificial Opening Endoscopic (ICD-10-PCS; CPT 45378; principal; 2025-07-20 12:25)
DX: D12.3 Benign neoplasm of transverse colon (principal); J44.9 Chronic obstructive pulmonary disease, unspecified; E11.9 Type 2 diabetes mellitus without complications; K57.30 Diverticulosis of large intestine without perforation or abscess without bleeding; R51.9 Headache, unspecified; I95.9 Hypotension, unspecified; K44.9 Diaphragmatic hernia without obstruction or gangrene; K21.00 Gastro-esophageal reflux disease with esophagitis, without bleeding; Z79.899 Other long term (current) drug therapy; K62.3 Rectal prolapse; K29.50 Unspecified chronic gastritis without bleeding
CPT/HCPCS: 44361; 45380; 82962; 88305; 88342; J2405

== ENCOUNTER → 2025-08-15 | Outpatient (CLI) | payer MEDICARE, MEDICAID, SELFPAY ==
[2025-08-15 17:20] LABS: Hematocrit 39.9 % (37-47); Hemoglobin 13.2 g/dL (12.0-15.0); Mean Corp Hgb Conc 33.1 g/dL (32-36); Mean Corpuscular Volume 92.4 fL (81-99); Mean Platelet Vol. 10.4 fl (6.2-12.0); Platelet Count 214 K/mm3 (150-450); RBC Distribution Width CV 14.5 % (11.6-14.6); RBC Distribution Width SD 48.8 fl (35.1-43.9); Red Blood Count 4.32 M/mm3 (4.2-5.4); White Blood Count 10.2 K/mm3 (4.4-11.0)
[2025-08-15 17:39] LABS: Valproic Acid (Depakene) Level 51 ug/mL (50-100)
[2025-08-15 18:03] LABS: AST(SGOT) 18 U/L (<=31); Alanine Aminotransfer ALT/SGPT 19 U/L (<=34); Albumin, Serum 4.2 g/dL (3.4-4.8); Alkaline Phosphatase 67 U/L (35-104); Anion Gap 12 (5-15); BUN 26 mg/dL (4-19); BUN/Creat Ratio 25.8 RATIO (10-20); Calcium,Total 9.7 mg/dL (7.6-11.0); Carbon Dioxide 25.2 mmol/L (21.0-32.0); Chloride 102 mmol/L (98-108); Globulin 2.7 g/dL (2.2-4.2); Glucose 87 mg/dL (70-99); Potassium 4.6 mmol/L (3.3-5.1)
== END | disposition home or self-care (01) ==
LOC: VSLAB 15:52
PROVIDERS: PCP Nurse Practitioner Family; Visit Provider Counselor Mental Health
DX: F31.9 Bipolar disorder, unspecified (principal)
CPT/HCPCS: 36415; 80053; 80164; 84443; 85027

== ENCOUNTER → 2025-09-18 | Outpatient (CLI) | payer MEDICARE, MEDICAID, SELFPAY ==
[2025-09-18 16:56] LABS: Hematocrit 44.9 % (37-47); Hemoglobin 14.9 g/dL (12.0-15.0); Immature Granulocytes Count 0.260 X10^3/uL (0.0-0.0); Mean Corp Hgb Conc 33.2 g/dL (32-36); Mean Corpuscular Volume 92.6 fL (81-99); Mean Platelet Vol. 9.8 fl (6.2-12.0); NRBC Flagged by Analyzer 0 % (0-5); Platelet Count 233 K/mm3 (150-450); RBC Distribution Width CV 14.0 % (11.6-14.6); RBC Distribution Width SD 47.8 fl (35.1-43.9); Red Blood Count 4.85 M/mm3 (4.2-5.4); White Blood Count 11.7 K/mm3 (4.4-11.0)
[2025-09-18 17:12] LABS: AST(SGOT) 28 U/L (<=31); Alanine Aminotransfer ALT/SGPT 23 U/L (<=34); Albumin, Serum 4.0 g/dL (3.4-4.8); Alkaline Phosphatase 69 U/L (35-104); Amylase 29 U/L (28-100); Anion Gap 13 (5-15); BUN 23 mg/dL (4-19); BUN/Creat Ratio 23.8 RATIO (10-20); Calcium,Total 9.7 mg/dL (7.6-11.0); Carbon Dioxide 22.2 mmol/L (21.0-32.0); Chloride 101 mmol/L (98-108); Globulin 2.8 g/dL (2.2-4.2); Glucose 162 mg/dL (70-99); Lipase 23 U/L (13-75); Potassium 4.3 mmol/L (3.3-5.1)
== END | disposition home or self-care (01) ==
LOC: VSLAB 14:20
PROVIDERS: PCP Nurse Practitioner Family
DX: R19.7 Diarrhea, unspecified (principal); R10.30 Lower abdominal pain, unspecified
CPT/HCPCS: 36415; 80053; 82150; 83690; 85025